=== PATIENT | male | born 1945 | race Caucasian/White ===

== ENCOUNTER → 2016-05-23 | Outpatient (CLI) | payer MEDICARE, MEDICAID | LOC: MW.CHIM 08:00 | PROVIDERS: ATTEND Internal Medicine | DX: Z01.818 Encounter for other preprocedural examination (principal); M72.0 Palmar fascial fibromatosis [Dupuytren]; I10 Essential (primary) hypertension; J43.9 Emphysema, unspecified | CPT/HCPCS: 99204 ==

== ENCOUNTER → 2016-05-30 | Outpatient (CLI) | payer MEDICARE, MEDICAID ==
--- NOTE | 2016-05-30 09:35 | PCM.PRNOTE ---
- Free Text/Narrative Note: Lexiscan Indication pre-op evaluation Patient was supervised today during infusion portion of the stress test. The patient received Regadenoson 0.4 mg IV and nuclear agent using standard protocol. Sestamibi Tm99 25 Mci was gievn afterwards Baseline blood pressure is 130/87 with a heart rate 83 EKG sinus rhythm without ST abnormalities Vital signs at injection: Peak blood pressure 112/65 with a heart rate of 91 Vital signs at 4 minutes post injection: Peak blood pressure 103/76 with a heart rate of 79 EKG sinus rhythm without further ST changes Patient complains of hot flashes spontaneously resolved Adverse effects from Sara scan none Test done due to end of protocol Impression 1. electrocardiographically nondiagnostic for ischemia due to chemical protocol 2. nuclear imaging pending
--- NOTE | 2016-05-30 12:38 | NM ---
EXAMINATION: Nuclear medicine myocardial perfusion study HISTORY: Preprocedural examination. PROCEDURE: Following intravenous administration of 0.4 mg of Lexiscan and 27.5 mCi of technetium 99m sestamib i, stress and rest SPECT images including gating imaging was performed. FINDINGS: Stress and rest myocardial SPECT images demonstrates mild to moderately decreased perfusion along th e inferior wall of moderate size. There is likely a degree of diaphragmatic attenuation. Review of gated images demonstrates normal wall motion, contractility and wall thickening. The left ventricular ejection fraction is 74 %. The left ventricular chamber size is normal. IMPRESSION: 1. Decreased uptake along the inferior wall, correlate with rest imaging. 2. Normal ventricular chamber size and function with ejection fraction of 74 %.
--- NOTE | 2016-06-05 19:42 | ECHO ---
The echocardiogram report can be seen in this patient's EMR in the Reports section. MINDI
== END ==
LOC: MW.NM 07:19
PROVIDERS: ATTEND Internal Medicine
DX: Z01.818 Encounter for other preprocedural examination (principal); J43.9 Emphysema, unspecified; M72.0 Palmar fascial fibromatosis [Dupuytren]; I10 Essential (primary) hypertension; Z87.891 Personal history of nicotine dependence; Z01.810 Encounter for preprocedural cardiovascular examination
CPT/HCPCS: 78451; 93017; 93306; 99204; A9500; J2785

== ENCOUNTER → 2016-06-01 | Outpatient (CLI) | payer MEDICARE, MEDICAID ==
--- NOTE | 2016-06-07 18:19 | NM ---
REPORT ADDENDUM Addendum: Additional images were obtained at rest following the administration of 27.5 mCi of technetium 99m labeled sestamibi. Findings/impression: The defect along the inferior wall appears predominantly fixed. There is likely a degree of diaphragmatic attenuation noted. The ejection fraction appears unchanged at 75%. Wall motion also is similar. No evidence of myocardial ischemia. Addendum Dictated by: Brien Holden MD <Electronically signed by Brien Holden MD in [facility]> 06/01/16 1124 , 1123 , 3 EXAMINATION: Nuclear medicine myocardial perfusion study HISTORY: Preprocedural examination. PROCEDURE: Following intravenous administration of 0.4 mg of Lexiscan and 27.5 mCi of technetium 99m sestamibi, stress and rest SPECT images including gating imaging was performed. FINDINGS: Stress and rest myocardial SPECT images demonstrates mild to moderately decreased perfusion along the inferior wall of moderate size. There is likely a degree of diaphragmatic attenuation. Review of gated images demonstrates normal wall motion, contractility and wall thickening. The left ventricular ejection fraction is 74 %. The left ventricular chamber size is normal. IMPRESSION: 1. Decreased uptake along the inferior wall, correlate with rest imaging. 2. Normal ventricular chamber size and function with ejection fraction of 74 %. Dictated by: Brien Holden MD <Electronically signed by Brien Holden MD in [facility]> 05/30/16 at 1236 , 1235 , 1235 Doc Number: [id number] Copies To: Jim Guillen MD; PCP,None~ MTDD
== END | disposition home or self-care (01) ==
LOC: MW.NM 08:04
PROVIDERS: ATTEND Internal Medicine
DX: I10 Essential (primary) hypertension (principal)
CPT/HCPCS: 78451; A9500

== ENCOUNTER → 2016-07-09 | Outpatient (CLI) | payer MEDICARE, MEDICAID | END | disposition home or self-care (01) | LOC: MW.CHUR 10:38 | PROVIDERS: ATTEND Urology | DX: R35.0 Frequency of micturition (principal); R97.20 Elevated prostate specific antigen [PSA]; N43.3 Hydrocele, unspecified | CPT/HCPCS: 36415; 81001; 84153; G0463 ==

== ENCOUNTER 2016-08-07 12:12 | Day surgery (SDC) | payer MEDICARE, MEDICAID ==
[~2016-08-07 12:12] MED LIST: Lactated Ringers 1,000 ML IV SCH; ceFAZolin 1 GM in Premix Bag 1 BAG IV ONE
[2016-08-07] MEDS ORDERED: Famotidine 20 MG/2 ML SDV IVPUSH ONE (13:04)
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
[2016-08-07] MEDS ORDERED: Lidocaine 2% 5 ML SDV ONE (14:03)
[2016-08-07] MEDS ORDERED: Midazolam 1 MG/ML 2 ML SDV ONE (14:03)
[2016-08-07] MEDS ORDERED: Propofol 200 MG/20 ML SDV ONE ×2 (14:03→14:04)
[2016-08-07] MEDS ORDERED: fentaNYL 250 MCG/5 ML SDV ONE (14:03)
[2016-08-07] MEDS ORDERED: Ondansetron 4 MG/2 ML SDV ONE (14:04)
[2016-08-07] MEDS ORDERED: Bupivacaine 0.5% 10 ML SDV ONE (14:40)
[2016-08-07] MEDS ORDERED: Lidocaine 1% 50 ML MDV ONE (14:40)
[2016-08-07] MEDS ORDERED: Ketorolac 30 MG/ML SDV ONE (16:01)
[2016-08-07] MEDS ORDERED: Neostigmine Methylsulfate 1 MG/ML 5 ML Syringe ONE (16:01)
[2016-08-07] MEDS ORDERED: fentaNYL 100 MCG/2 ML SDV IVPUSH PRN (16:27)
--- NOTE | 2016-08-07 16:42 | PCM.POSTAN ---
POST ANESTHESIA ASSESSMENT - MENTAL STATUS Mental Status: alert, oriented - VITAL SIGNS Pulse Rate: 84 SaO2: 94 (room air) Resp Rate: 18 Blood Pressure: 118/65 - RESPIRATORY Respiratory Status: respiratory rate WNL, airway patent, O2 saturation stable - CARDIOVASCULAR CV Status: pulse rate WNL, blood pressure stable - GASTROINTESTINAL GI Status: no symptoms - PAIN Pain Score: 0 - POST OP HYDRATION Hydration Status: adequate & stable
--- NOTE | 2016-08-07 16:46 | PCM48HPAN ---
Post Anesthesia Note - EVALUATION WITHIN 48HRS OF ANESTHETIC Vital Signs in Normal Range: Yes Patient Participated in Evaluation: Yes Respiratory Function Stable: Yes Airway Patent: Yes Cardiovascular Function Stable: Yes Hydration Status Stable: Yes Pain Control Satisfactory: Yes Nausea and Vomiting Control Satisfactory: Yes Mental Status Recovered: Yes
[2016-08-07 17:38] VITALS: BP 128/70
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
== END 2016-08-07 17:35 | disposition home or self-care (01) ==
LOC: MW.SDS 12:12
PROVIDERS: ATTEND Urology
DX: N43.3 Hydrocele, unspecified (principal); I10 Essential (primary) hypertension; J44.9 Chronic obstructive pulmonary disease, unspecified; K21.9 Gastro-esophageal reflux disease without esophagitis; N40.1 Benign prostatic hyperplasia with lower urinary tract symptoms; N39.498 Other specified urinary incontinence; E03.9 Hypothyroidism, unspecified; E66.9 Obesity, unspecified; Z87.891 Personal history of nicotine dependence; Z90.49 Acquired absence of other specified parts of digestive tract; Z96.659 Presence of unspecified artificial knee joint; Z98.890 Other specified postprocedural states; Z79.82 Long term (current) use of aspirin; Z79.899 Other long term (current) drug therapy
CPT/HCPCS: 55040; J0690; J1885; J2250; J2405; J3010; J7120; 00920; 88304; J2704

== ENCOUNTER 2016-11-21 02:09 | Emergency (ER) | payer MEDICARE, MEDICAID ==
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
[2016-11-21 04:35] VITALS: BP 129/75
--- NOTE | 2016-11-21 16:09 | CR ---
EXAM DATE: 11/21/16 PATIENT'S AGE: 71 Patient: LEONIDAS HENDERSON Facility: [place], [place] Site . Site : 1945 Study: XRay Knee Right [id number]/6/2017 3:23:04 AM Ordering Physician: Doctor Eaton Final Report: Indication: Fall, right knee pain Technique: Three views right knee Comparison: February 20, 2012 Findings: Status post right knee arthroplasty. No hardware complication identified. No acute fracture or subluxation. No knee effusion. Soft tissues are intact. Impression: No acute abnormality or hardware complication. Dictated by Ayde Shen MD @ Nov 21 2016 3:23AM (Electronic Signature) Report Signed by Proxy. MINDI
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
--- NOTE | 2016-11-21 16:11 | CR ---
EXAM DATE: 11/21/16 PATIENT'S AGE: 71 Patient: LEONIDAS HENDERSON Facility: [place], [place] Site . Site : 1945 Study: XRay Pelvis Bilateral HIPS [id number]/6/2017 3:23:49 AM Ordering Physician: Doctor Eaton Final Report: Indication: Fall, weakness Technique: Frontal view pelvis, two view bilateral hips Comparison: None Findings/impression: Irregularity of the left superior and inferior pubic rami may be secondary to rotation however if there is any left-sided pelvic pain, a pelvic CT is recommended for further evaluation. There are mild degenerative changes in the hip joints bilaterally. Remainder the exam is unremarkable. Dictated by Ayde Shen MD @ Nov 21 2016 3:37AM (Electronic Signature) Report Signed by Proxy. MINDI
== END 2016-11-21 04:10 | disposition home or self-care (01) ==
LOC: MW.ED 02:09
DX: S89.91XA Unspecified injury of right lower leg, initial encounter (principal); I10 Essential (primary) hypertension; J44.9 Chronic obstructive pulmonary disease, unspecified; K21.9 Gastro-esophageal reflux disease without esophagitis; M19.90 Unspecified osteoarthritis, unspecified site; E03.9 Hypothyroidism, unspecified; E66.9 Obesity, unspecified; Z90.49 Acquired absence of other specified parts of digestive tract; Z96.659 Presence of unspecified artificial knee joint; Z87.891 Personal history of nicotine dependence; Z68.35 Body mass index [BMI] 35.0-35.9, adult; Z79.82 Long term (current) use of aspirin; Z79.899 Other long term (current) drug therapy; W19.XXXA Unspecified fall, initial encounter
CPT/HCPCS: 36415; 71010; 71010-26; 73521; 73521-26; 73562-26-RT; 73562-RT; 80053; 82553; 84484; 85025; 93005; 99282; 99285-25

== ENCOUNTER 2018-09-05 16:09 | Observation (INO) | payer MEDICARE, MEDICAID ==
[2018-09-05 16:57] LABS: CHLORIDE,CL 104 mmol/L (98-107); SODIUM,NA 135 mmol/L (136-148)
--- NOTE | 2018-09-05 17:32 | CR ---
INDICATION: Generalized weakness TECHNIQUE: Chest 1 views COMPARISON: 11/21/2016 FINDINGS: Cardiovascular and mediastinum: Heart size and vasculature are normal in caliber and appearance. Lungs and pleural spaces: Lungs are clear except for a stable right lower lobe granuloma. No sign of infiltrate or mass. No sign of pleural effusion. No pneumothorax. Bones and soft tissues: No significant findings. IMPRESSION: No acute findings and no significant changes from the prior exam. Dictated by Patrice Nieves MD @ Sep 05 2018 5:29PM Signed by Dr. Patrice Nieves @ Sep 05 2018 5:30PM
--- NOTE | 2018-09-05 18:45 | CT ---
INDICATION: Altered mental status. COMPARISON: None. TECHNIQUE: Noncontrast images foramen magnum to vertex. FINDINGS: Low-attenuation edema or gliosis in the deep white of the superior anterior left frontal lobe. Large lacunar infarct left insula and into the external capsule. Small lacunar infarct left thalamus. No hemorrhage. Mild global atrophy with prominence of sulci and lateral ventricles. No extra-axial fluid. No mass, mass effect or midline shift. The posterior fossa appears normal. Presumed mucous retention cyst left maxillary sinus. Calvarium intact. IMPRESSION: 1. Left basal gangliar lacunar infarcts. 2. Nonspecific low-attenuation edema or gliosis left frontal lobe. No definite mass. Findings may be root related to infarct or ischemia. If there is ongoing concern for acute neurologic event, further characterization with MRI recommended. 3. Mild global atrophy. Please note that all CT scans at this facility use dose modulation, iterative reconstruction, and/or weight-based dosing when appropriate to reduce radiation dose to as low as reasonably achievable. Dictated by Amrit Gomez MD @ Sep 05 2018 6:42PM Signed by Dr. Amrit Gomez @ Sep 05 2018 6:45PM
[2018-09-05] MEDS ORDERED: Aspirin 81 MG Tab.Chew PO ONE (19:32)
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
[2018-09-05] MEDS ORDERED: oxyCODONE 5 MG Tab PO PRN (21:05)
[2018-09-05] MEDS ORDERED: Acetaminophen 325 MG Tab PO PRN (21:05)
[2018-09-05] MEDS: Sodium Chloride 0.9% 1,000 ML IV SCH (21:49)
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
[2018-09-06] MEDS ORDERED: Iopamidol 755 MG/ML 500 ML Multipack Bottle IVPUSH STA (09:43)
[2018-09-06] MEDS: Heparin Sodium 5,000 Units/ML Vial SUBCUT SCH ×2 (09:46→16:35)
--- NOTE | 2018-09-06 10:21 | CT ---
CT ANGIOGRAM HEAD AND NECK DATE: 09/06/2018 CLINICAL HISTORY: Patient with transient episode of confusion. TECHNIQUE: Standard helical CT image acquisition through the head and neck was performed after intravenous contrast bolus enhancement. Multiplanar reconstructed images were performed and interpreted. COMPARISON: CT 09/05/2018. FINDINGS: The origins of the great vessels from the aortic arch are patent. The origin of the right vertebral artery is patent. The origin of the left vertebral artery is patent. The common carotid arteries are patent There is no stenosis at the origin of the right internal carotid artery. There is no stenosis at the origin of the left internal carotid artery. The rest of the cervical segments of the internal carotid arteries are patent up to their intracranial segments. The intracranial segments of the internal carotid arteries are patent. The right vertebral artery is dominant. The cervical segments of the vertebral arteries are patent. The intracranial segments of the vertebral arteries are patent. The middle cerebral arteries are normal without aneurysm or proximal occlusion identified. The anterior cerebral arteries are normal without aneurysm or proximal occlusion identified. The anterior communicating artery is well visualized and appears normal. The basilar artery is normal without aneurysm or occlusion. The posterior cerebral arteries are normal without aneurysm or proximal occlusion. There is normal opacification of major intracranial venous structures. The visualized lung apices are unremarkable The thyroid gland is unremarkable. The soft tissues of the neck are unremarkable. There are degenerative changes in the cervical spine. IMPRESSION: Normal CT angiogram of the head and neck. Please note that all CT scans at this facility use dose modulation, iterative reconstruction, and/or weight-based dosing when appropriate to reduce radiation dose to as low as reasonably achievable. Dictated by: Rich Santillan MD @ 09/06/2018 13:43:30 (Electronically Signed)
[2018-09-06] MEDS ORDERED: Lisinopril 10 MG Tab PO SCH (10:45)
[2018-09-06] MEDS ORDERED: Tolterodine 2 MG Cap.ER PO SCH (10:45)
[2018-09-06] MEDS ORDERED: Omeprazole 20 MG Cap.CR PO SCH (10:45)
[2018-09-06] MEDS ORDERED: Metoprolol Succinate 25 MG Tab.ER PO SCH (10:45)
[2018-09-06] MEDS ORDERED: UMECLIDINIUM BRM INH SCH (10:45)
[2018-09-06] MEDS ORDERED: VILANTEROL TR INH SCH (10:45)
[2018-09-06] MEDS ORDERED: Hydrochlorothiazide 25 MG Tab PO SCH (10:45)
[2018-09-06] MEDS: Sodium Chloride 0.9% 1,000 ML IV SCH ×2 (11:10→19:22)
[2018-09-06 21:51] VITALS: BP 126/58
[2018-09-07] MEDS ORDERED: Levothyroxine 75 MCG Tab PO SCH (07:30)
[2018-09-07] MEDS ORDERED: Omeprazole 20 MG Cap.CR PO SCH (07:30)
[2018-09-07] MEDS ORDERED: Dutasteride 0.5 MG Cap PO SCH (09:00)
[2018-09-07] MEDS ORDERED: Aspirin 81 MG Tab.EC PO SCH (09:00)
--- NOTE | 2018-09-08 09:55 | PCM.DCSUM1 ---
Discharge Summary - Hospital Course HPI Initial Comments: The patient was admitted secondary to altered mental status. Diagnosis: Stroke: No - Discharge Data Discharge Date: 09/06/18 Discharge Disposition: Against Medical Advice 07 Condition: Fair - Discharge Diagnosis/Problem(s) (1) Altered mental status SNOMED Code(s): 518401689 ICD Code: R41.82 - ALTERED MENTAL STATUS, UNSPECIFIED Status: Resolved Qualifiers: Altered mental status type: disorientation Qualified Code(s): R41.0 - Disorientation, unspecified (2) Anemia in stage 3 chronic kidney disease SNOMED Code(s): 204127763 ICD Code: N18.3 - CHRONIC KIDNEY DISEASE, STAGE 3 (MODERATE); D63.1 - ANEMIA IN CHRONIC KIDNEY DISEASE Status: Chronic Priority: High (3) Chronic kidney disease, stage III (moderate) SNOMED Code(s): 810383231 ICD Code: N18.3 - CHRONIC KIDNEY DISEASE, STAGE 3 (MODERATE) Status: Chronic Priority: High (4) Dupuytren's contracture of both hands SNOMED Code(s): 982757488 ICD Code: M72.0 - [place] FASCIAL FIBROMATOSIS [DUPUYTREN] Status: Chronic Priority: High (5) Hypertension SNOMED Code(s): 30190712 ICD Code: I10 - ESSENTIAL (PRIMARY) HYPERTENSION Status: Chronic Priority : High Qualifiers: Hypertension type: essential hypertension Qualified Code(s): I10 - Essential (primary) hypertension - Patient Summary/Data Consults: Consultations 09/06/18 07:00 OT Evaluation and Treatment [CONS] Routine PT Evaluation and Treatment [CONS] Routine Hospital Course: The patient is a 73-year-old gentleman who had been admitted secondary to altered mental status. The patient had a CT angiogram of his head and neck and he was fluid resuscitated to help prevent contrast-induced nephropathy and the patient was held 1 day to check his renal function. His discharge creatinine was 1.8 mg/dL. The patient signed out AGAINST MEDICAL ADVICE before being evaluated. - Discharge Plan *PRESCRIPTION DRUG MONITORING PROGRAM REVIEWED*: No *COPY OF PRESCRIPTION DRUG MONITORING REPORT IN PATIENT JENNIFER: No Home Medications: Home Meds Aspirin [[place] Aspirin EC] 81 mg PO DAILY 08/02/16 [History] Cyanocobalamin (Vitamin B-12) [B-12] 1,000 mcg PO DAILY 08/02/16 [History] Dutasteride [Avodart] 0.5 mg PO DAILY 08/02/16 [History] Hydrochlorothiazide 12.5 mg PO DAILY 08/02/16 [History] Levothyroxine Sodium [Synthroid] 75 mcg PO DAILY 08/02/16 [History] Lisinopril 20 mg PO DAILY 08/02/16 [History] Metoprolol Succinate 25 mg PO DAILY 08/02/16 [History] Omeprazole 20 mg PO DAILY 08/02/16 [History] Tolterodine Tartrate [Tolterodine Tartrate ER] 4 mg PO DAILY 11/21/16 [History] Umeclidinium Brm/Vilanterol Tr [Anoro Ellipta 62.5-25 MCG] 1 puff INH DAILY [History] Forms: ED Department Discharge Referrals: PCP,None [Primary Care Provider] - - Discharge Summary/Plan Comment DC Time >30 min.: No - Patient Data Vitals - Most Recent: Last Vital Signs Temp 36 C 09/06/18 19:25 Pulse 82 09/06/18 19:25 Resp 18 09/06/18 19:25 BP 126/58 L 09/06/18 19:25 Pulse Ox 95 09/06/18 19:25 Weight - Most Recent: 113.035 kg Med Orders - Current: Current Medications Discontinued Medications Acetaminophen (Tylenol) 650 mg PO Q6H PRN PRN Reason: Pain (mild 1-3) Aspirin (Aspirin) 324 mg PO ONETIME ONE Stop: 09/05/18 19:33 Last Admin: 09/05/18 20:04 Dose: 324 mg Aspirin (Halfprin) 81 mg PO DAILY [facility] Dutasteride (Avodart) 0.5 mg PO DAILY [facility] Heparin Sodium (Porcine) (Heparin Sodium) 5,000 units SUBCUT Q8H [facility] Last Admin: 09/06/18 16:35 Dose: 5,000 units Hydrochlorothiazide (Hydrochlorothiazide) 12.5 mg PO DAILY [facility] Last Admin: 09/06/18 11:39 Dose: 12.5 mg Sodium Chloride (Normal Saline) 1,000 mls @ 125 mls/hr IV ASDIRECTED [facility] Last Admin: 09/06/18 19:22 Dose: 125 mls/hr Iopamidol (Isovue Multipack-370 (76%)) 100 ml IVPUSH ONETIME STA Stop: 09/06/18 09:44 Last Admin: 09/06/18 09:43 Dose: 100 ml Levothyroxine Sodium (Levothyroxine) 75 mcg PO ACBREAKFAST [facility] Lisinopril (Prinivil) 20 mg PO DAILY [facility] Last Admin: 09/06/18 11:39 Dose: 20 mg Metoprolol Succinate (Toprol Xl) 25 mg PO DAILY [facility] Last Admin: 09/06/18 11:39 Dose: 25 mg Omeprazole (Omeprazole) 20 mg PO DAILY [facility] Last Admin: 09/06/18 11:45 Dose: Not Given Omeprazole (Omeprazole) 20 mg PO ACBREAKFAST [facility] Oxycodone HCl (Oxycodone) 5 mg PO Q4H PRN PRN Reason: Pain (moderate 4-6) Umeclidinium Brm/Vilanterol Tr 62.5/25 Mcg 1 each INH DAILY [facility] Last Admin: 09/06/18 12:14 Dose: 1 each Tolterodine Tartrate (Detrol La 24 Hr) 4 mg PO DAILY [facility] Last Admin: 09/06/18 11:39 Dose: 4 mg
== END 2018-09-06 21:30 | disposition left against medical advice (07) ==
LOC: MW.ED 16:09 → MW.MS 20:10
PROVIDERS: ADMIT Internal Medicine; ATTEND Internal Medicine
DX: R41.82 Altered mental status, unspecified (principal); I12.9 Hypertensive chronic kidney disease with stage 1 through stage 4 chronic kidney disease, or unspecified chronic kidney disease; N18.3 Chronic kidney disease, stage 3 (moderate); D63.1 Anemia in chronic kidney disease; M72.0 Palmar fascial fibromatosis [Dupuytren]; J44.9 Chronic obstructive pulmonary disease, unspecified; K21.9 Gastro-esophageal reflux disease without esophagitis; N40.1 Benign prostatic hyperplasia with lower urinary tract symptoms; N39.498 Other specified urinary incontinence; M19.90 Unspecified osteoarthritis, unspecified site; E03.9 Hypothyroidism, unspecified; E66.9 Obesity, unspecified; I63.81 Other cerebral infarction due to occlusion or stenosis of small artery; G31.9 Degenerative disease of nervous system, unspecified; Z79.82 Long term (current) use of aspirin; Z79.899 Other long term (current) drug therapy; Z87.891 Personal history of nicotine dependence; Z68.32 Body mass index [BMI] 32.0-32.9, adult
CPT/HCPCS: 36415; 70450; 70496; 70498; 71045; 80048; 80053; 80305; 81003; 83690; 83735; 84484; 85025; 93005; 97161; 99285; A9270; G0480; J1644; J7040; Q9967; 99283

== ENCOUNTER 2018-10-02 16:08 | Emergency (ER) | payer MEDICARE, MEDICAID ==
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
--- NOTE | 2018-10-02 16:43 | CT ---
INDICATION: Neck pain from syncope and fall TECHNIQUE: CT cervical spine without i.v. contrast. Coronal and sagittal reformats were obtained. COMPARISON: CXR today FINDINGS: Alignment: Mild kyphosis of the cervical spine is noted. Bone: No acute fractures or aggressive bone lesions are identified. There is a corticated ossicle along the tip of the C7 spinous process which may be due to remote injury or nonunited secondary ossification center. Disc: Moderate degenerative disc narrowing is present from C3-4 through C6-7. Scattered facet osteoarthritis is noted bilaterally. Soft tissue: The prevertebral soft tissues are unremarkable in appearance. Lucency in the right apex with no lung markings are present. This may be due to bullous formation when compared to recent chest radiograph. IMPRESSION: 1. No acute osseous injuries are identified. Dictated by Raffi Stanley MD @ 10/02/2018 4:42:54 PM Please note that all CT scans at this facility use dose modulation, iterative reconstruction, and/or weight-based dosing when appropriate to reduce radiation dose to as low as reasonably achievable. Dictated by: Raffi Stanley MD @ 10/02/2018 16:42:59 (Electronically Signed)
[2018-10-02] MEDS ORDERED: Sodium Chloride 0.9% 1,000 ML IV SCH (16:45)
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
--- NOTE | 2018-10-02 17:09 | CR ---
HISTORY: Pain after fall last night. COMPARISON: None available. FINDINGS: The right elbow is examined with AP, lateral, and oblique views. There is no sign of fracture, dislocation, or joint effusion. The soft tissues are normal in appearance without sign of radio-opaque foreign body. No significant degenerative disease is seen. IMPRESSION: Normal right elbow examination. Dictated by Rajesh Nascimento MD @ Oct 02 2018 5:06PM Signed by Dr. Rajesh Nascimento @ Oct 02 2018 5:07PM
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
[2018-10-02 17:20] LABS: CHLORIDE,CL 105 mmol/L (98-107); SODIUM,NA 138 mmol/L (136-148)
[2018-10-02 18:15] VITALS: BP 98/69
== END 2018-10-02 18:05 | disposition home or self-care (01) ==
LOC: MW.ED 16:08
DX: R55 Syncope and collapse (principal); S50.01XA Contusion of right elbow, initial encounter; S20.211A Contusion of right front wall of thorax, initial encounter; Z86.73 Personal history of transient ischemic attack (TIA), and cerebral infarction without residual deficits; I10 Essential (primary) hypertension; J44.9 Chronic obstructive pulmonary disease, unspecified; E03.9 Hypothyroidism, unspecified; Z79.82 Long term (current) use of aspirin; Z79.899 Other long term (current) drug therapy; W19.XXXA Unspecified fall, initial encounter
CPT/HCPCS: 36415; 70450; 71101; 72125; 73080; 80053; 84484; 85025; 85610; 93005; 96360; 99284; G0480; J7040

== ENCOUNTER 2019-01-14 16:16 | Observation (INO) | payer MEDICARE, MEDICAID ==
[2019-01-14] MEDS ORDERED: Sodium Chloride 0.9% 10 ML Syringe FLUSH PRN (16:23)
[2019-01-14] MEDS ORDERED: Sodium Chloride 0.9% 2.5 ML Syringe FLUSH PRN (16:23)
[2019-01-14] MEDS ORDERED: Sodium Chloride 0.9% 250 ML IV SCH (16:30)
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
--- NOTE | 2019-01-14 18:05 | CR ---
Indication: Pain. Shortness breath. Technique: A single AP portable view of the chest was obtained. Comparison: None Findings: Heart is borderline in size. Small left pleural effusion is identified. The right lung is clear. No pneumothorax is identified. Impression: Small left pleural effusion Dictated by Jayde Cao MD @ Jan 14 2019 6:02PM Signed by Dr. Jayde Cao @ Jan 14 2019 6:03PM
--- NOTE | 2019-01-14 18:11 | CT ---
INDICATION: Pain, weakness, dizziness COMPARISON: 10/02/2018. TECHNIQUE: CT examination of the head was performed with 3 mm thick axial sections without intravenous contrast. Images were obtained from the vertex of the skull through the skull base, and I examined the images with the brain and bone windows. Please note that all CT scans at this facility use dose modulation, iterative reconstruction, and/or weight-based dosing when appropriate to reduce radiation dose to as low as reasonably achievable. FINDINGS: : The brain is normal in appearance for the patient`s age on today`s study, with no sign of mass lesion, mass effect, hemorrhage, or edema. 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 Again seen is the old lacunar infarct in the left thalamus. Again seen are several small lacunar infarcts in the external capsules, right greater than left. There is no change in mild dilatation of the ventricles and sulci representing age-appropriate atrophy. There is no change in mild periventricular and subcortical white matter hypodensity from age appropriate small vessel ischemia. The visualized portions of the orbits are normal in appearance. The visualized portions of the paranasal sinuses and mastoids are clear. The osseous structures are normal in their appearance with no sign of abnormality in the skull base or calvarium. IMPRESSION: No sign of acute injury to the brain. Stable mild, age-appropriate atrophy and mild small vessel ischemic changes. 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 Please note that all CT scans at this facility use dose modulation, iterative reconstruction, and/or weight-based dosing when appropriate to reduce radiation dose to as low as reasonably achievable. Dictated by Rajesh Nascimento MD @ Jan 14 2019 6:04PM Signed by Dr. Rajesh Nascimento @ Jan 14 2019 6:10PM
[2019-01-14 18:15] LABS: BLOOD UREA NITROGEN,BUN 30 mg/dL (7.0-18.0); CARBON DIOXIDE,CO2 25.5 mmol/L (21.0-32.0); CHLORIDE,CL 104 mmol/L (98-107); GLUCOSE RANDOM 107 mg/dL (74-106); POTASSIUM,K 4.1 mmol/L (3.5-5.1); SODIUM,NA 139 mmol/L (136-148)
[2019-01-14] MEDS ORDERED: Morphine 10 MG/ML Syringe IVPUSH PRN (18:58)
[2019-01-14] MEDS ORDERED: Acetaminophen 325 MG Tab PO PRN (18:58)
[2019-01-14] MEDS ORDERED: Ondansetron 4 MG Tab.DIS PO PRN (18:58)
[2019-01-14] MEDS ORDERED: Ondansetron 4 MG/2 ML SDV IVPUSH PRN (18:58)
[2019-01-14] MEDS ORDERED: Acetaminophen/HYDROcodone 325-5 MG Tab PO PRN (18:58)
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
[2019-01-14] MEDS ORDERED: Sodium Chloride 0.9% 1,000 ML IV ONE (19:55)
[2019-01-14] MEDS: Heparin Sodium 5,000 Units/ML Vial SUBCUT SCH (20:09)
[2019-01-15] MEDS: Heparin Sodium 5,000 Units/ML Vial SUBCUT SCH ×3 (03:32→18:15)
[2019-01-15 06:33] LABS: HEMOGLOBIN A1C 5.8 % (4.5-6.2)
[2019-01-15 06:47] LABS: BLOOD UREA NITROGEN,BUN 27 mg/dL (7.0-18.0); CARBON DIOXIDE,CO2 25.8 mmol/L (21.0-32.0); CHLORIDE,CL 108 mmol/L (98-107); GLUCOSE RANDOM 87 mg/dL (74-106); POTASSIUM,K 3.6 mmol/L (3.5-5.1); SODIUM,NA 145 mmol/L (136-148)
[2019-01-15] MEDS: Levothyroxine 75 MCG Tab PO SCH (07:11)
[2019-01-15] MEDS ORDERED: Morphine 2 MG/ML Syringe IVPUSH PRN (07:32)
[2019-01-15] MEDS ORDERED: Omeprazole 20 MG Cap.CR PO SCH (09:00)
[2019-01-15] MEDS: Metoprolol Succinate 25 MG Tab.ER PO SCH (09:47)
[2019-01-15] MEDS: Famotidine 20 MG Tab PO SCH ×2 (09:48→20:10)
[2019-01-15] MEDS: Aspirin 81 MG Tab.EC PO SCH (09:48)
--- NOTE | 2019-01-15 11:19 | PCM.PN ---
<Juliann Pemberton M - Last Filed: 01/15/19 14:31> - General Info Date of Service: 01/15/19 Admission Dx/Problem (Free Text): Admission Diagnosis/Problem Admission Diagnosis/Problem Weakness Functional Status: Reports: Pain Controlled, Tolerating Diet, Ambulating, Urinating - Review of Systems General: Reports: No Symptoms. Denies: Fever, Weakness, Fatigue HEENT: Reports: No Symptoms Pulmonary: Reports: No Symptoms Cardiovascular: Reports: No Symptoms. Denies: Chest Pain, Dyspnea on Exertion Gastrointestinal: Reports: No Symptoms. Denies: Abdominal Pain, Nausea, Vomiting Genitourinary: Reports: No Symptoms. Denies: Dysuria, Frequency Musculoskeletal: Reports: No Symptoms. Denies: Back Pain Skin: Reports: No Symptoms Neurological: Reports: No Symptoms Psychiatric: Reports: No Symptoms - Patient Data Vitals - Most Recent: Last Vital Signs Temp 96.5 F 01/15/19 07:15 Pulse 72 01/15/19 09:47 Resp 16 01/15/19 07:15 BP 131/73 01/15/19 09:47 Pulse Ox 98 01/15/19 09:30 Orthostatic Blood Pressure [ 131/73 Supine] Weight - Most Recent: 111.221 kg I&O - Last 24 Hours: Intake & Output 01/14/19 01/15/19 01/15/19 22:59 06:59 14:59 Intake Total 1306 Balance 1306 Lab Results Last 24 Hours: Laboratory Results - last 24 hr 01/14/19 01/14/19 01/14/19 Range/Units 16:32 16:40 16:40 WBC 5.21 (4.0-11.0) K/uL RBC 4.03 L (4.50-5.90) M/uL Hgb 12.3 L (13.0-17.0) g/dL Hct 36.0 L (38.0-50.0) % MCV 89.3 (80.0-98.0) fL MCH 30.5 (27.0-32.0) pg MCHC 34.2 (31.0-37.0) g/dL RDW Std Deviation 44.5 (28.0-62.0) fl RDW Coeff of Konrad 14 (11.0-15.0) % Plt Count 188 (150-400) K/uL MPV 10.10 (7.40-12.00) fL Neut % (Auto) 65.0 (48.0-80.0) % Lymph % (Auto) 19.8 (16.0-40.0) % [place] % (Auto) 12.1 (0.0-15.0) % Eos % (Auto) 2.9 (0.0-7.0) % Baso % (Auto) 0.2 (0.0-1.5) % Neut # (Auto) 3.4 (1.4-5.7) K/uL Lymph # (Auto) 1.0 (0.6-2.4) K/uL [place] # (Auto) 0.6 (0.0-0.8) K/uL Eos # (Auto) 0.2 (0.0-0.7) K/uL Baso # (Auto) 0.0 (0.0-0.1) K/uL Nucleated RBC % 0.0 /100WBC Nucleated RBCs # 0 K/uL INR 1.02 ABG pH 7.458 H (7.35-7.45) ABG pCO2 32 L (35-45) mmHG ABG pO2 78 (75-100) mmHG ABG HCO3 23 (22-26) mEq/L ABG Total CO2 20.6 ABG Base Excess -0.5 (-2.0-2.0) Sodium (136-148) mmol/L Potassium (3.5-5.1) mmol/L Chloride (98-107) mmol/L Carbon Dioxide (21.0-32.0) mmol/L BUN (7.0-18.0) mg/dL Creatinine (0.8-1.3) mg/dL Est Cr Clr Drug Dosing mL/min Estimated GFR (MDRD) ml/min Glucose (74-106) mg/dL Hemoglobin A1c (4.5-6.2) % Calcium (8.5-10.1) mg/dL Magnesium (1.8-2.4) mg/dL Total Bilirubin (0.2-1.0) mg/dL AST (15-37) IU/L ALT (14-63) IU/L Alkaline Phosphatase (46-116) U/L Ammonia (19-54) ug/dL Troponin I (0.000-0.056) ng/mL B-Natriuretic Peptide (<100) PG/ML Total Protein (6.4-8.2) g/dL Albumin (3.4-5.0) g/dL Globulin (2.6-4.0) g/dL Albumin/Globulin Ratio (0.9-1.6) Triglycerides (0-200) mg/dL Cholesterol (50-200) mg/dL LDL Cholesterol, Calc (60-180) mg/dL VLDL Cholesterol (5-55) mg/dL HDL Cholesterol (40-60) mg/dL Cholesterol/HDL Ratio (3.3-6.0) Prostate Specific Ag (0.05-4.00) ng/mL Vitamin B12 (193-986) pg/mL TSH 3rd Generation (0.36-3.74) uIU/mL Prolactin ng/mL Urine Color Urine Appearance Urine pH (5.0-8.0) Ur Specific [place] (1.001-1.035) Urine Protein (NEGATIVE) mg/dL Urine Glucose (UA) (NEGATIVE) mg/dL Urine Ketones (NEGATIVE) mg/dL Urine Occult Blood (NEGATIVE) Urine Nitrite (NEGATIVE) Urine Bilirubin (NEGATIVE) Urine Urobilinogen (<2.0) EU/dL Ur Leukocyte Esterase (NEGATIVE) Urine RBC (0-2/HPF) Urine WBC (0-5/HPF) Ur Epithelial Cells (NONE-FEW) Urine Bacteria (NEGATIVE) Urine Mucus (NONE-MOD) Urine Opiates Screen (NEGATIVE) Ur Oxycodone Screen (NEGATIVE) Urine Methadone Screen (NEGATIVE) Ur Barbiturates Screen (NEGATIVE) Ur Phencyclidine Scrn (NEGATIVE) Ur Amphetamine Screen (NEGATIVE) U Methamphetamines Scrn (NEGATIVE) U Benzodiazepines Scrn (NEGATIVE) U Cocaine Metab Screen (NEGATIVE) U Marijuana (THC) Screen (NEGATIVE) 01/14/19 01/14/19 01/14/19 Range/Units 17:33 17:33 17:33 WBC (4.0-11.0) K/uL RBC (4.50-5.90) M/uL Hgb (13.0-17.0) g/dL Hct (38.0-50.0) % MCV (80.0-98.0) fL MCH (27.0-32.0) pg MCHC (31.0-37.0) g/dL RDW Std Deviation (28.0-62.0) fl RDW Coeff of [place] (11.0-15.0) % Plt Count (150-400) K/uL MPV (7.40-12.00) fL Neut % (Auto) (48.0-80.0) % Lymph % (Auto) (16.0-40.0) % [place] % (Auto) (0.0-15.0) % Eos % (Auto) (0.0-7.0) % Baso % (Auto) (0.0-1.5) % Neut # (Auto) (1.4-5.7) K/uL Lymph # (Auto) (0.6-2.4) K/uL [place] # (Auto) (0.0-0.8) K/uL Eos # (Auto) (0.0-0.7) K/uL Baso # (Auto) (0.0-0.1) K/uL Nucleated RBC % /100WBC Nucleated RBCs # K/uL INR ABG pH (7.35-7.45) ABG pCO2 (35-45) mmHG ABG pO2 (75-100) mmHG ABG HCO3 (22-26) mEq/L ABG Total CO2 ABG Base Excess (-2.0-2.0) Sodium 139 (136-148) mmol/L Potassium 4.1 (3.5-5.1) mmol/L Chloride 104 (98-107) mmol/L Carbon Dioxide 25.5 (21.0-32.0) mmol/L BUN 30 H (7.0-18.0) mg/dL Creatinine 1.4 H (0.8-1.3) mg/dL Est Cr Clr Drug Dosing 56.27 mL/min Estimated GFR (MDRD) 50.0 ml/min Glucose 107 H (74-106) mg/dL Hemoglobin A1c (4.5-6.2) % Calcium 9.7 (8.5-10.1) mg/dL Magnesium (1.8-2.4) mg/dL Total Bilirubin 0.4 (0.2-1.0) mg/dL AST 18 (15-37) IU/L ALT 13 L (14-63) IU/L Alkaline Phosphatase 58 (46-116) U/L Ammonia < 17 L (19-54) ug/dL Troponin I < 0.050 (0.000-0.056) ng/mL B-Natriuretic Peptide 97 (<100) PG/ML Total Protein 6.9 (6.4-8.2) g/dL Albumin 3.4 (3.4-5.0) g/dL Globulin 3.5 (2.6-4.0) g/dL Albumin/Globulin Ratio 1.0 (0.9-1.6) Triglycerides (0-200) mg/dL Cholesterol (50-200) mg/dL LDL Cholesterol, Calc (60-180) mg/dL VLDL Cholesterol (5-55) mg/dL HDL Cholesterol (40-60) mg/dL Cholesterol/HDL Ratio (3.3-6.0) Prostate Specific Ag (0.05-4.00) ng/mL Vitamin B12 (193-986) pg/mL TSH 3rd Generation (0.36-3.74) uIU/mL Prolactin 7.4 ng/mL Urine Color Urine Appearance Urine pH (5.0-8.0) Ur Specific [place] (1.001-1.035) Urine Protein (NEGATIVE) mg/dL Urine Glucose (UA) (NEGATIVE) mg/dL Urine Ketones (NEGATIVE) mg/dL Urine Occult Blood (NEGATIVE) Urine Nitrite (NEGATIVE) Urine Bilirubin (NEGATIVE) Urine Urobilinogen (<2.0) EU/dL Ur Leukocyte Esterase (NEGATIVE) Urine RBC (0-2/HPF) Urine WBC (0-5/HPF) Ur Epithelial Cells (NONE-FEW) Urine Bacteria (NEGATIVE) Urine Mucus (NONE-MOD) Urine Opiates Screen (NEGATIVE) Ur Oxycodone Screen (NEGATIVE) Urine Methadone Screen (NEGATIVE) Ur Barbiturates Screen (NEGATIVE) Ur Phencyclidine Scrn (NEGATIVE) Ur Amphetamine Screen (NEGATIVE) U Methamphetamines Scrn (NEGATIVE) U Benzodiazepines Scrn (NEGATIVE) U Cocaine Metab Screen (NEGATIVE) U Marijuana (THC) Screen (NEGATIVE) 01/14/19 01/14/19 01/14/19 Range/Units 17:33 17:33 17:33 WBC (4.0-11.0) K/uL RBC (4.50-5.90) M/uL Hgb (13.0-17.0) g/dL Hct (38.0-50.0) % MCV (80.0-98.0) fL MCH (27.0-32.0) pg MCHC (31.0-37.0) g/dL RDW Std Deviation (28.0-62.0) fl RDW Coeff of [place] (11.0-15.0) % Plt Count (150-400) K/uL MPV (7.40-12.00) fL Neut % (Auto) (48.0-80.0) % Lymph % (Auto) (16.0-40.0) % [place] % (Auto) (0.0-15.0) % Eos % (Auto) (0.0-7.0) % Baso % (Auto) (0.0-1.5) % Neut # (Auto) (1.4-5.7) K/uL Lymph # (Auto) (0.6-2.4) K/uL [place] # (Auto) (0.0-0.8) K/uL Eos # (Auto) (0.0-0.7) K/uL Baso # (Auto) (0.0-0.1) K/uL Nucleated RBC % /100WBC Nucleated RBCs # K/uL INR ABG pH (7.35-7.45) ABG pCO2 (35-45) mmHG ABG pO2 (75-100) mmHG ABG HCO3 (22-26) mEq/L ABG Total CO2 ABG Base Excess (-2.0-2.0) Sodium (136-148) mmol/L Potassium (3.5-5.1) mmol/L Chloride (98-107) mmol/L Carbon Dioxide (21.0-32.0) mmol/L BUN (7.0-18.0) mg/dL Creatinine (0.8-1.3) mg/dL Est Cr Clr Drug Dosing mL/min Estimated GFR (MDRD) ml/min Glucose (74-106) mg/dL Hemoglobin A1c (4.5-6.2) % Calcium (8.5-10.1) mg/dL Magnesium 2.0 (1.8-2.4) mg/dL Total Bilirubin (0.2-1.0) mg/dL AST (15-37) IU/L ALT (14-63) IU/L Alkaline Phosphatase (46-116) U/L Ammonia (19-54) ug/dL Troponin I (0.000-0.056) ng/mL B-Natriuretic Peptide (<100) PG/ML Total Protein (6.4-8.2) g/dL Albumin (3.4-5.0) g/dL Globulin (2.6-4.0) g/dL Albumin/Globulin Ratio (0.9-1.6) Triglycerides (0-200) mg/dL Cholesterol (50-200) mg/dL LDL Cholesterol, Calc (60-180) mg/dL VLDL Cholesterol (5-55) mg/dL HDL Cholesterol (40-60) mg/dL Cholesterol/HDL Ratio (3.3-6.0) Prostate Specific Ag (0.05-4.00) ng/mL Vitamin B12 906 (193-986) pg/mL TSH 3rd Generation 4.09 H (0.36-3.74) uIU/mL Prolactin ng/mL Urine Color Urine Appearance Urine pH (5.0-8.0) Ur Specific [place] (1.001-1.035) Urine Protein (NEGATIVE) mg/dL Urine Glucose (UA) (NEGATIVE) mg/dL Urine Ketones (NEGATIVE) mg/dL Urine Occult Blood (NEGATIVE) Urine Nitrite (NEGATIVE) Urine Bilirubin (NEGATIVE) Urine Urobilinogen (<2.0) EU/dL Ur Leukocyte Esterase (NEGATIVE) Urine RBC (0-2/HPF) Urine WBC (0-5/HPF) Ur Epithelial Cells (NONE-FEW) Urine Bacteria (NEGATIVE) Urine Mucus (NONE-MOD) Urine Opiates Screen (NEGATIVE) Ur Oxycodone Screen (NEGATIVE) Urine Methadone Screen (NEGATIVE) Ur Barbiturates Screen (NEGATIVE) Ur Phencyclidine Scrn (NEGATIVE) Ur Amphetamine Screen (NEGATIVE) U Methamphetamines Scrn (NEGATIVE) U Benzodiazepines Scrn (NEGATIVE) U Cocaine Metab Screen (NEGATIVE) U Marijuana (THC) Screen (NEGATIVE) 01/14/19 01/14/19 01/15/19 Range/Units 18:25 18:25 05:45 WBC (4.0-11.0) K/uL RBC (4.50-5.90) M/uL Hgb (13.0-17.0) g/dL Hct (38.0-50.0) % MCV (80.0-98.0) fL MCH (27.0-32.0) pg MCHC (31.0-37.0) g/dL RDW Std Deviation (28.0-62.0) fl RDW Coeff of Konrad (11.0-15.0) % Plt Count (150-400) K/uL MPV (7.40-12.00) fL Neut % (Auto) (48.0-80.0) % Lymph % (Auto) (16.0-40.0) % [place] % (Auto) (0.0-15.0) % Eos % (Auto) (0.0-7.0) % Baso % (Auto) (0.0-1.5) % Neut # (Auto) (1.4-5.7) K/uL Lymph # (Auto) (0.6-2.4) K/uL [place] # (Auto) (0.0-0.8) K/uL Eos # (Auto) (0.0-0.7) K/uL Baso # (Auto) (0.0-0.1) K/uL Nucleated RBC % /100WBC Nucleated RBCs # K/uL INR ABG pH (7.35-7.45) ABG pCO2 (35-45) mmHG ABG pO2 (75-100) mmHG ABG HCO3 (22-26) mEq/L ABG Total CO2 ABG Base Excess (-2.0-2.0) Sodium 145 (136-148) mmol/L Potassium 3.6 (3.5-5.1) mmol/L Chloride 108 H (98-107) mmol/L Carbon Dioxide 25.8 (21.0-32.0) mmol/L BUN 27 H (7.0-18.0) mg/dL Creatinine 1.4 H (0.8-1.3) mg/dL Est Cr Clr Drug Dosing 54.69 mL/min Estimated GFR (MDRD) 50.0 ml/min Glucose 87 (74-106) mg/dL Hemoglobin A1c (4.5-6.2) % Calcium 9.4 (8.5-10.1) mg/dL Magnesium (1.8-2.4) mg/dL Total Bilirubin 0.4 (0.2-1.0) mg/dL AST 12 L (15-37) IU/L ALT 15 (14-63) IU/L Alkaline Phosphatase 46 (46-116) U/L Ammonia (19-54) ug/dL Troponin I (0.000-0.056) ng/mL B-Natriuretic Peptide (<100) PG/ML Total Protein 6.2 L (6.4-8.2) g/dL Albumin 3.2 L (3.4-5.0) g/dL Globulin 3.0 (2.6-4.0) g/dL Albumin/Globulin Ratio 1.1 (0.9-1.6) Triglycerides (0-200) mg/dL Cholesterol (50-200) mg/dL LDL Cholesterol, Calc (60-180) mg/dL VLDL Cholesterol (5-55) mg/dL HDL Cholesterol (40-60) mg/dL Cholesterol/HDL Ratio (3.3-6.0) Prostate Specific Ag < 0.05 L (0.05-4.00) ng/mL Vitamin B12 (193-986) pg/mL TSH 3rd Generation (0.36-3.74) uIU/mL Prolactin ng/mL Urine Color YELLOW Urine Appearance CLEAR Urine pH 5.5 (5.0-8.0) Ur Specific [place] 1.020 (1.001-1.035) Urine Protein NEGATIVE (NEGATIVE) mg/dL Urine Glucose (UA) NEGATIVE (NEGATIVE) mg/dL Urine Ketones NEGATIVE (NEGATIVE) mg/dL Urine Occult Blood MODERATE H (NEGATIVE) Urine Nitrite NEGATIVE (NEGATIVE) Urine Bilirubin NEGATIVE (NEGATIVE) Urine Urobilinogen 0.2 (<2.0) EU/dL Ur Leukocyte Esterase NEGATIVE (NEGATIVE) Urine RBC 6-12 (0-2/HPF) Urine WBC NONE SEEN (0-5/HPF) Ur Epithelial Cells RARE (NONE-FEW) Urine Bacteria FEW (NEGATIVE) Urine Mucus LIGHT (NONE-MOD) Urine Opiates Screen NEGATIVE (NEGATIVE) Ur Oxycodone Screen NEGATIVE (NEGATIVE) Urine Methadone Screen NEGATIVE (NEGATIVE) Ur Barbiturates Screen NEGATIVE (NEGATIVE) Ur Phencyclidine Scrn NEGATIVE (NEGATIVE) Ur Amphetamine Screen NEGATIVE (NEGATIVE) U Methamphetamines Scrn NEGATIVE (NEGATIVE) U Benzodiazepines Scrn NEGATIVE (NEGATIVE) U Cocaine Metab Screen NEGATIVE (NEGATIVE) U Marijuana (THC) Screen NEGATIVE (NEGATIVE) 01/15/19 01/15/19 01/15/19 Range/Units 05:45 05:45 05:45 WBC 4.08 (4.0-11.0) K/uL RBC 3.82 L (4.50-5.90) M/uL Hgb 11.4 L (13.0-17.0) g/dL Hct 34.2 L (38.0-50.0) % MCV 89.5 (80.0-98.0) fL MCH 29.8 (27.0-32.0) pg MCHC 33.3 (31.0-37.0) g/dL RDW Std Deviation 44.1 (28.0-62.0) fl RDW Coeff of Kon[place] 14 (11.0-15.0) % Plt Count 146 L (150-400) K/uL MPV 10.10 (7.40-12.00) fL Neut % (Auto) 56.6 (48.0-80.0) % Lymph % (Auto) 24.0 (16.0-40.0) % [place] % (Auto) 15.0 (0.0-15.0) % Eos % (Auto) 3.9 (0.0-7.0) % Baso % (Auto) 0.5 (0.0-1.5) % Neut # (Auto) 2.3 (1.4-5.7) K/uL Lymph # (Auto) 1.0 (0.6-2.4) K/uL [place] # (Auto) 0.6 (0.0-0.8) K/uL Eos # (Auto) 0.2 (0.0-0.7) K/uL Baso # (Auto) 0.0 (0.0-0.1) K/uL Nucleated RBC % 0.0 /100WBC Nucleated RBCs # 0 K/uL INR ABG pH (7.35-7.45) ABG pCO2 (35-45) mmHG ABG pO2 (75-100) mmHG ABG HCO3 (22-26) mEq/L ABG Total CO2 ABG Base Excess (-2.0-2.0) Sodium (136-148) mmol/L Potassium (3.5-5.1) mmol/L Chloride (98-107) mmol/L Carbon Dioxide (21.0-32.0) mmol/L BUN (7.0-18.0) mg/dL Creatinine (0.8-1.3) mg/dL Est Cr Clr Drug Dosing mL/min Estimated GFR (MDRD) ml/min Glucose (74-106) mg/dL Hemoglobin A1c 5.8 (4.5-6.2) % Calcium (8.5-10.1) mg/dL Magnesium (1.8-2.4) mg/dL Total Bilirubin (0.2-1.0) mg/dL AST (15-37) IU/L ALT (14-63) IU/L Alkaline Phosphatase (46-116) U/L Ammonia (19-54) ug/dL Troponin I (0.000-0.056) ng/mL B-Natriuretic Peptide (<100) PG/ML Total Protein (6.4-8.2) g/dL Albumin (3.4-5.0) g/dL Globulin (2.6-4.0) g/dL Albumin/Globulin Ratio (0.9-1.6) Triglycerides 80 (0-200) mg/dL Cholesterol 163 (50-200) mg/dL LDL Cholesterol, Calc 110 (60-180) mg/dL VLDL Cholesterol 16 (5-55) mg/dL HDL Cholesterol 37 L (40-60) mg/dL Cholesterol/HDL Ratio 4.4 (3.3-6.0) Prostate Specific Ag (0.05-4.00) ng/mL Vitamin B12 (193-986) pg/mL TSH 3rd Generation (0.36-3.74) uIU/mL Prolactin ng/mL Urine Color Urine Appearance Urine pH (5.0-8.0) Ur Specific [place] (1.001-1.035) Urine Protein (NEGATIVE) mg/dL Urine Glucose (UA) (NEGATIVE) mg/dL Urine Ketones (NEGATIVE) mg/dL Urine Occult Blood (NEGATIVE) Urine Nitrite (NEGATIVE) Urine Bilirubin (NEGATIVE) Urine Urobilinogen (<2.0) EU/dL Ur Leukocyte Esterase (NEGATIVE) Urine RBC (0-2/HPF) Urine WBC (0-5/HPF) Ur Epithelial Cells (NONE-FEW) Urine Bacteria (NEGATIVE) Urine Mucus (NONE-MOD) Urine Opiates Screen (NEGATIVE) Ur Oxycodone Screen (NEGATIVE) Urine Methadone Screen (NEGATIVE) Ur Barbiturates Screen (NEGATIVE) Ur Phencyclidine Scrn (NEGATIVE) Ur Amphetamine Screen (NEGATIVE) U Methamphetamines Scrn (NEGATIVE) U Benzodiazepines Scrn (NEGATIVE) U Cocaine Metab Screen (NEGATIVE) U Marijuana (THC) Screen (NEGATIVE) Med Orders - Current: Current Medications Acetaminophen (Tylenol) 650 mg PO Q4H PRN PRN Reason: Pain (Mild 1-3)/fever Hydrocodone Bitart/Acetaminophen ([place] 325-5 Mg) 1 tab PO Q4H PRN PRN Reason: Pain (moderate 4-6) Aspirin (Halfprin) 81 mg PO DAILY [facility] Last Admin: 01/15/19 09:48 Dose: 81 mg Dutasteride (Avodart) 0.5 mg PO DAILY [facility] Famotidine (Pepcid) 20 mg PO BID [facility] Last Admin: 01/15/19 09:48 Dose: 20 mg Heparin Sodium (Porcine) (Heparin Sodium) 5,000 units SUBCUT Q8H [facility] Last Admin: 01/15/19 11:06 Dose: 5,000 units Levothyroxine Sodium (Levothyroxine) 75 mcg PO DAILY@0700 [facility] Last Admin: 01/15/19 07:11 Dose: 75 mcg Metoprolol Succinate (Toprol Xl) 25 mg PO DAILY [facility] Last Admin: 01/15/19 09:47 Dose: 25 mg Morphine Sulfate (Morphine) 2 mg IVPUSH Q2H PRN PRN Reason: Pain (severe 7-10) Stop: 01/15/19 18:59 Ondansetron HCl (Zofran Odt) 4 mg PO Q4H PRN PRN Reason: nausea, able to take PO Ondansetron HCl (Zofran) 4 mg IVPUSH Q4H PRN PRN Reason: Nausea Sodium Chloride (Saline Flush) 10 ml FLUSH ASDIRECTED PRN PRN Reason: Keep Vein Open Last Admin: 01/14/19 16:45 Dose: 10 ml Sodium Chloride (Saline Flush) 2.5 ml FLUSH ASDIRECTED PRN PRN Reason: Keep Vein Open Last Admin: 01/14/19 16:45 Dose: 2.5 ml Discontinued Medications Sodium Chloride (Normal Saline) 250 mls @ 999 mls/hr IV STAT [facility] Last Admin: 01/14/19 16:45 Dose: 999 mls/hr Sodium Chloride (Normal Saline) 1,000 mls @ 125 mls/hr IV STAT ONE Stop: 01/15/19 03:54 Last Admin: 01/14/19 21:04 Dose: 125 mls/hr Morphine Sulfate (Morphine) 2 mg IVPUSH Q2H PRN PRN Reason: Pain (severe 7-10) Stop: 01/15/19 18:59 - Exam General: Alert, Oriented, Cooperative, No Acute Distress Cardiovascular: Regular Rate, Regular Rhythm GI/Abdominal Exam: Normal Bowel Sounds, Soft Back Exam: Normal Inspection, Full Range of Motion Extremities: Normal Inspection, Normal Range of Motion, Non-Tender, No Pedal Edema Neurological: No New Focal Deficit, Strength Equal Bilateral, Other (dupuytrens contractures to bilateral hands) Psy/Mental Status: Alert, Normal Affect, Normal Mood - Problem List & Annotations (1) Weakness SNOMED Code(s): 98340068 Code(s): R53.1 - WEAKNESS Status: Acute (2) History of TIA (transient ischemic attack) SNOMED Code(s): 575296187 Code(s): Z86.73 - PRSNL HX OF TIA (TIA), AND CEREB INFRC W/O RESID DEFICITS Status: Chronic (3) Hypothyroidism SNOMED Code(s): 73367529 Code(s): E03.9 - HYPOTHYROIDISM, UNSPECIFIED Status: Chronic (4) Anemia in stage 3 chronic kidney disease SNOMED Code(s): 709182528 Code(s): N18.3 - CHRONIC KIDNEY DISEASE, STAGE 3 (MODERATE); D63.1 - ANEMIA IN CHRONIC KIDNEY DISEASE Status: Chronic Priority: High (5) Chronic kidney disease, stage III (moderate) SNOMED Code(s): 066842404 Code(s): N18.3 - CHRONIC KIDNEY DISEASE, STAGE 3 (MODERATE) Status: Chronic Priority: High (6) Dupuytren's contracture of both hands SNOMED Code(s): 779095141 Code(s): M72.0 - PALMAR FASCIAL FIBROMATOSIS [DUPUYTREN] Status: Chronic Priority: High (7) Hypertension SNOMED Code(s): 22793234 Code(s): I10 - ESSENTIAL (PRIMARY) HYPERTENSION Status: Chronic Priority : High Qualifiers: Hypertension type: essential hypertension Qualified Code(s): I10 - Essential (primary) hypertension - Problem List Review Problem List Initiated/Reviewed/Updated: Yes - My Orders Last 24 Hours: My Active Orders 01/15/19 08:52 Brain wo Cont [MR] Urgent 01/15/19 09:02 Orthostatic Vital Signs [RC] ASDIRECTED 01/15/19 10:14 OT Evaluation and Treatment [CONS] Routine - Plan Plan:: This 73 year old mal admitted with weakness. 1.Weakness: No further weakness today. Had event of disassociation at home yesterday, felt like he was floating and unable to move. Given gentle fluids for mild dehydration. Obtain MRI to rule out CVA. Will continue Obtain PT/OT consult. Continue ASA and start statin therapy. 2. Hematuria- no other signs of UTI. Will need to follow-up with oncology due to history of prostate cancer for further work-up. If risk of CVA will need to discuss with Oncology continuance of Lupron. 3. PMH Hypertension- will resume some of his home meds. Will monitor blood pressure. Dispo: 1-2 days <Constantine Lucas - Last Filed: 01/20/19 12:38> - Patient Data Vitals - Most Recent: Last Vital Signs Temp 36.5 C 01/16/19 12:00 Pulse 85 01/16/19 12:00 Resp 18 01/16/19 12:00 BP 122/89 01/16/19 12:00 Pulse Ox 98 01/16/19 12:00 Orthostatic Blood Pressure [ 159/76 Sitting] Orthostatic Blood Pressure [ 143/72 Standing] Orthostatic Blood Pressure [ 137/63 Supine] Med Orders - Current: Current Medications Discontinued Medications Acetaminophen (Tylenol) 650 mg PO Q4H PRN PRN Reason: Pain (Mild 1-3)/fever Hydrocodone Bitart/Acetaminophen ([place] 325-5 Mg) 1 tab PO Q4H PRN PRN Reason: Pain (moderate 4-6) Aspirin (Halfprin) 81 mg PO DAILY [facility] Last Admin: 01/16/19 08:58 Dose: 81 mg Atorvastatin Calcium (Lipitor) 40 mg PO BEDTIME [facility] Last Admin: 01/15/19 20:09 Dose: 40 mg Dutasteride (Avodart) 0.5 mg PO DAILY [facility] Last Admin: 01/16/19 08:59 Dose: 0.5 mg Famotidine (Pepcid) 20 mg PO BID [facility] Last Admin: 01/16/19 08:58 Dose: 20 mg Heparin Sodium (Porcine) (Heparin Sodium) 5,000 units SUBCUT Q8H [facility] Last Admin: 01/16/19 11:11 Dose: Not Given Sodium Chloride (Normal Saline) 250 mls @ 999 mls/hr IV STAT [facility] Last Admin: 01/14/19 16:45 Dose: 999 mls/hr Sodium Chloride (Normal Saline) 1,000 mls @ 125 mls/hr IV STAT ONE Stop: 01/15/19 03:54 Last Admin: 01/14/19 21:04 Dose: 125 mls/hr Levothyroxine Sodium (Levothyroxine) 75 mcg PO DAILY@0700 [facility] Last Admin: 01/16/19 06:34 Dose: 75 mcg Metoprolol Succinate (Toprol Xl) 25 mg PO DAILY [facility] Last Admin: 01/16/19 08:58 Dose: 25 mg Morphine Sulfate (Morphine) 2 mg IVPUSH Q2H PRN PRN Reason: Pain (severe 7-10) Stop: 01/15/19 18:59 Morphine Sulfate (Morphine) 2 mg IVPUSH Q2H PRN PRN Reason: Pain (severe 7-10) Stop: 01/15/19 18:59 Ondansetron HCl (Zofran Odt) 4 mg PO Q4H PRN PRN Reason: nausea, able to take PO Ondansetron HCl (Zofran) 4 mg IVPUSH Q4H PRN PRN Reason: Nausea Sodium Chloride (Saline Flush) 10 ml FLUSH ASDIRECTED PRN PRN Reason: Keep Vein Open Last Admin: 01/14/19 16:45 Dose: 10 ml Sodium Chloride (Saline Flush) 2.5 ml FLUSH ASDIRECTED PRN PRN Reason: Keep Vein Open Last Admin: 01/14/19 16:45 Dose: 2.5 ml
[2019-01-15] MEDS: Dutasteride 0.5 MG Cap PO SCH (11:47)
--- NOTE | 2019-01-15 14:19 | MR ---
INDICATION: Weakness. TECHNIQUE: Multiplanar multisequence noncontrast MR images were obtained through the brain. COMPARISON: CT brain 01/14/2019. FINDINGS: Motion artifact degrades T1 and SWI sequences. Prominence of the ventricles and sulci compatible with mild diffuse cerebral volume loss. No mass effect or midline shift. Scattered foci of T2 FLAIR hyperintensity in the supratentorial white matter, nonspecific though typical for sequelae of mild chronic microvascular ischemic changes. Superimposed chronic lacunar infarctions in the right taveras radiata and bilateral basal ganglia. T2 prolongation in the left thalamus may represent a chronic lacunar infarction or prominent perivascular space. Small chronic infarction involving the cortex and subcortical white matter of the left superior frontal gyrus. Small moderate-sized area of encephalomalacia and gliosis involving the inferolateral left temporal lobe and left temporal operculum. Stable ovoid structure in the region of the inferior left basal ganglia and external capsule demonstrating mild adjacent T2 FLAIR hyperintensity, potentially representing a prominent perivascular space. No recent intracranial hemorrhage or pathologic extra-axial fluid collection. No diffusion restriction to suggest acute infarction. The major arterial flow voids of the skullbase are preserved. The globes are symmetric in size. Small left maxillary sinus retention cyst or polyp. Trace right mastoid fluid. IMPRESSION: 1. No acute infarction, mass effect, or recent intracranial hemorrhage. 2. Small to moderate-sized area of encephalomalacia and gliosis involving the inferolateral left temporal lobe and left temporal operculum, potentially representing sequelae of chronic infarction or prior trauma. 3. Small chronic infarction involving the left superior frontal gyrus. 4. Mild chronic microvascular ischemic changes with superimposed chronic lacunar infarctions. 5. Mild diffuse cerebral volume loss. Dictated by Tanner Aguilar MD @ Jan 15 2019 2:09PM Signed by Dr. Tanner Aguilar @ Jan 15 2019 2:18PM
[2019-01-15] MEDS ORDERED: atorvaSTATin 40 MG Tab PO SCH (21:00)
[2019-01-16] MEDS: Heparin Sodium 5,000 Units/ML Vial SUBCUT SCH ×2 (02:33→11:11)
[2019-01-16] MEDS: Levothyroxine 75 MCG Tab PO SCH (06:34)
[2019-01-16 07:35] LABS: CARBON DIOXIDE,CO2 25.6 mmol/L (21.0-32.0); POTASSIUM,K 3.7 mmol/L (3.5-5.1)
[2019-01-16] MEDS: Aspirin 81 MG Tab.EC PO SCH (08:58)
[2019-01-16] MEDS: Metoprolol Succinate 25 MG Tab.ER PO SCH (08:58)
[2019-01-16] MEDS: Famotidine 20 MG Tab PO SCH (08:58)
[2019-01-16] MEDS: Dutasteride 0.5 MG Cap PO SCH (08:59)
--- NOTE | 2019-01-16 11:53 | PCM.DCSUM1 ---
Discharge Summary - Hospital Course Brief History: 73 y/o male with history of CKD, prostate cancer who presented to the ER complaining of generalized weakness. Patient states he was at home eating his dinner and watching TV when he decided to get up from the chair to go to the refrigerator for some water. He states that he was unable to get up from the chair. He tried to push himself up from the table but was unable to. Denies any chest pain, dyspnea, abdominal pain, dysuria, diarrhea. No headaches , change in vision. No nausea or vomiting. Denies history of seizures. He lives by himself in [place]. Denies any tobacco use and occasional alcohol. No known allergies.j. In the ER, his vitals were stable. No leukocytosis. Troponin was negative. CT head was negative for any acute findings. 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 Diagnosis: Stroke: No - Discharge Data Discharge Date: 01/16/19 Discharge Disposition: Home, W Home Health Agency 06 Condition: Good - Referral to Home Health Date of Face to Face Encounter: 01/16/19 Reason for Homebound Status: Pat is in need of assistance of caregiver and walker to leave home. He is unable to drive and needs caregiver to take him to appointments. Primary Care Physician: PCP Unknown Skilled Need: Pat is in need of senior living care to assist with monitoring new medications and monitoring appropriate medication administration. He is also in need of PT to assist withexercise program and unsteady gait along with strengthening exercises. He would also benefit from OT to home safety evaluation and ADLs assessment due to bilateral Dupuytren's contractures. - Discharge Diagnosis/Problem(s) (1) Weakness SNOMED Code(s): 72008300 ICD Code: R53.1 - WEAKNESS Status: Acute (2) History of TIA (transient ischemic attack) SNOMED Code(s): 162118866 ICD Code: Z86.73 - PRSNL HX OF TIA (TIA), AND CEREB INFRC W/O RESID DEFICITS Status: Chronic (3) Hypothyroidism SNOMED Code(s): 05153733 ICD Code: E03.9 - HYPOTHYROIDISM, UNSPECIFIED Status: Chronic (4) Anemia in stage 3 chronic kidney disease SNOMED Code(s): 560681392 ICD Code: N18.3 - CHRONIC KIDNEY DISEASE, STAGE 3 (MODERATE); D63.1 - ANEMIA IN CHRONIC KIDNEY DISEASE Status: Chronic Priority: High (5) Chronic kidney disease, stage III (moderate) SNOMED Code(s): 035072569 ICD Code: N18.3 - CHRONIC KIDNEY DISEASE, STAGE 3 (MODERATE) Status: Chronic Priority: High (6) Dupuytren's contracture of both hands SNOMED Code(s): 808662797 ICD Code: M72.0 - PALMAR FASCIAL FIBROMATOSIS [DUPUYTREN] Status: Chronic Priority: High (7) Hypertension SNOMED Code(s): 50614290 ICD Code: I10 - ESSENTIAL (PRIMARY) HYPERTENSION Status: Chronic Priority : High Qualifiers: Hypertension type: essential hypertension Qualified Code(s): I10 - Essential (primary) hypertension (8) Dizziness SNOMED Code(s): 680607887, 464636279 ICD Code: R42 - DIZZINESS AND GIDDINESS Status: Acute - Patient Summary/Data Consults: Consultations 01/14/19 19:57 Consult to Physical Therapy [PT Evaluation and Treatment] [CONS] Routine 01/15/19 10:14 OT Evaluation and Treatment [CONS] Routine - Patient Instructions Diet: Heart Healthy Diet Activity: As Tolerated Driving: Do Not Drive Showering/Bathing: May Shower Notify Provider of: Fever, Increased Pain, Swelling and Redness, Drainage, Nausea and/or Vomiting - Discharge Plan *PRESCRIPTION DRUG MONITORING PROGRAM REVIEWED*: Not Applicable *COPY OF PRESCRIPTION DRUG MONITORING REPORT IN PATIENT JENNIFER: Not Applicable Prescriptions/Med Rec: atorvaSTATin [Lipitor] 40 mg PO BEDTIME #30 tablet Home Medications: Home Meds Aspirin [[place] Aspirin EC] 81 mg PO DAILY 08/02/16 [History] Cyanocobalamin (Vitamin B-12) [B-12] 1,000 mcg PO DAILY 08/02/16 [History] Dutasteride [Avodart] 0.5 mg PO DAILY 08/02/16 [History] Hydrochlorothiazide 12.5 mg PO DAILY 08/02/16 [History] Levothyroxine Sodium [Synthroid] 75 mcg PO DAILY 08/02/16 [History] Metoprolol Succinate 25 mg PO DAILY 08/02/16 [History] Tolterodine Tartrate [Tolterodine Tartrate ER] 4 mg PO DAILY 11/21/16 [History] Umeclidinium Brm/Vilanterol Tr [Anoro Ellipta 62.5-25 MCG] 1 puff INH DAILY [History] Famotidine 20 mg PO BID 01/15/19 [History] Lisinopril 5 mg PO DAILY 01/15/19 [History] atorvaSTATin [Lipitor] 40 mg PO BEDTIME #30 tablet 01/16/19 [Rx] Patient Handouts: Weakness, [id number], Atorvastatin tablets Referrals: Jim Guillen MD [Physician] - 02/24/19 3:00 pm Thomas Phoenix MD [Physician] - 01/30/19 10:30 am Kavya Tracy MD [Physician] - 02/23/19 2:15 pm - Discharge Summary/Plan Comment DC Time >30 min.: No Discharge Summary/Plan Comment: Admitting Diagnoses: Weakness Dizziness Discharge Diagnoses: Generalized weakness Dizziness-resolved Other PMH: CKD HTN Prostate Ca Hx CVA Pat was admitted secondary to event he had at home, he has trouble describing it, but weakness all over and maybe dizziness. He was brought to the ED for evaluation. He was monitored on telemetry. Due to dizziness and history of TIA, syncope MRI of brain was obtained. This revealed no acute infarction, mass effect or intracranial hemorrhage. Small to moderate sized area of encephalomalacia and gliosis involving the inferolateral left temporal lobe and left temporal operculum likely sequelae of chronic infarction. Small chronic infarction involving left superior frontal gyrus, mild chronic microvascular ischemic changes with superimposed chronic lacunar infarctions. He was notified of no acute findings. He was kept to be evaluated by PT, which felt he was ok for discharge, but recommended Home Health PT to help with gait and exercise program at home. This morning, telemetry noted 2nd degree block, patient was asymptomatic and VS were stable, he was sitting in the chair eating breakfast. EKG obtained but patient had converted back to SR with 1st degree block. We will place Zio patch for 14 day monitoring and have patient see Cardiology as outpatient due to event at home as well as history of passing out. I will start Atorvastatin 40 mg due to age and needing only slight improvement in cholesterol panel. He is to continue ASA. I will leave the discussion of continuing Lupron with potential cardiovascular side effects to Dr Frias and Dr Tracy due to risk benefit profile with prostate CA. He is to continue BP medications at home with no changes. He was also noted to have microscopic hematuria. He is to follow up with Dr Frias and Dr Tracy regarding this and his history of prostate ca. He is to return to clinic or ED if concerns should arise. - Patient Data Vitals - Most Recent: Last Vital Signs Temp 97.5 F 01/16/19 08:00 Pulse 70 01/16/19 08:58 Resp 18 01/16/19 08:00 BP 138/62 01/16/19 08:58 Pulse Ox 94 L 01/16/19 08:00 Orthostatic Blood Pressure [ 159/76 Sitting] Orthostatic Blood Pressure [ 143/72 Standing] Orthostatic Blood Pressure [ 137/63 Supine] Weight - Most Recent: 111.221 kg I&O - Last 24 hours: Intake & Output 01/15/19 01/16/19 01/16/19 22:59 06:59 14:59 Intake Total 800 400 Output Total 1025 1165 Balance -225 -765 Lab Results - Last 24 hrs: Laboratory Results - last 24 hr 01/16/19 01/16/19 Range/Units 07:08 07:08 WBC 4.78 (4.0-11.0) K/uL RBC 4.07 L (4.50-5.90) M/uL Hgb 12.4 L (13.0-17.0) g/dL Hct 37.0 L (38.0-50.0) % MCV 90.9 (80.0-98.0) fL MCH 30.5 (27.0-32.0) pg MCHC 33.5 (31.0-37.0) g/dL RDW Std Deviation 45.5 (28.0-62.0) fl RDW Coeff of Konrad 14 (11.0-15.0) % Plt Count 168 (150-400) K/uL MPV 10.10 (7.40-12.00) fL Neut % (Auto) 58.6 (48.0-80.0) % Lymph % (Auto) 24.5 (16.0-40.0) % Jennings % (Auto) 13.2 (0.0-15.0) % Eos % (Auto) 3.3 (0.0-7.0) % Baso % (Auto) 0.4 (0.0-1.5) % Neut # (Auto) 2.8 (1.4-5.7) K/uL Lymph # (Auto) 1.2 (0.6-2.4) K/uL Jennings # (Auto) 0.6 (0.0-0.8) K/uL Eos # (Auto) 0.2 (0.0-0.7) K/uL Baso # (Auto) 0.0 (0.0-0.1) K/uL Nucleated RBC % 0.0 /100WBC Nucleated RBCs # 0 K/uL Sodium 143 (136-148) mmol/L Potassium 3.7 (3.5-5.1) mmol/L Chloride 108 H (98-107) mmol/L Carbon Dioxide 25.6 (21.0-32.0) mmol/L BUN 28 H (7.0-18.0) mg/dL Creatinine 1.4 H (0.8-1.3) mg/dL Est Cr Clr Drug Dosing 54.69 mL/min Estimated GFR (MDRD) 50.0 ml/min Glucose 95 (74-106) mg/dL Calcium 9.9 (8.5-10.1) mg/dL Total Bilirubin 0.7 (0.2-1.0) mg/dL AST 15 (15-37) IU/L ALT 20 (14-63) IU/L Alkaline Phosphatase 50 (46-116) U/L Total Protein 6.9 (6.4-8.2) g/dL Albumin 3.6 (3.4-5.0) g/dL Globulin 3.3 (2.6-4.0) g/dL Albumin/Globulin Ratio 1.1 (0.9-1.6) Med Orders - Current: Current Medications Acetaminophen (Tylenol) 650 mg PO Q4H PRN PRN Reason: Pain (Mild 1-3)/fever Hydrocodone Bitart/Acetaminophen ([place] 325-5 Mg) 1 tab PO Q4H PRN PRN Reason: Pain (moderate 4-6) Aspirin (Halfprin) 81 mg PO DAILY [facility] Last Admin: 01/16/19 08:58 Dose: 81 mg Atorvastatin Calcium (Lipitor) 40 mg PO BEDTIME JERROD Last Admin: 01/15/19 20:09 Dose: 40 mg Dutasteride (Avodart) 0.5 mg PO DAILY [facility] Last Admin: 01/16/19 08:59 Dose: 0.5 mg Famotidine (Pepcid) 20 mg PO BID [facility] Last Admin: 01/16/19 08:58 Dose: 20 mg Heparin Sodium (Porcine) (Heparin Sodium) 5,000 units SUBCUT Q8H [facility] Last Admin: 01/16/19 11:11 Dose: Not Given Levothyroxine Sodium (Levothyroxine) 75 mcg PO DAILY@0700 [facility] Last Admin: 01/16/19 06:34 Dose: 75 mcg Metoprolol Succinate (Toprol Xl) 25 mg PO DAILY [facility] Last Admin: 01/16/19 08:58 Dose: 25 mg Ondansetron HCl (Zofran Odt) 4 mg PO Q4H PRN PRN Reason: nausea, able to take PO Ondansetron HCl (Zofran) 4 mg IVPUSH Q4H PRN PRN Reason: Nausea Sodium Chloride (Saline Flush) 10 ml FLUSH ASDIRECTED PRN PRN Reason: Keep Vein Open Last Admin: 01/14/19 16:45 Dose: 10 ml Sodium Chloride (Saline Flush) 2.5 ml FLUSH ASDIRECTED PRN PRN Reason: Keep Vein Open Last Admin: 01/14/19 16:45 Dose: 2.5 ml Discontinued Medications Sodium Chloride (Normal Saline) 250 mls @ 999 mls/hr IV STAT [facility] Last Admin: 01/14/19 16:45 Dose: 999 mls/hr Sodium Chloride (Normal Saline) 1,000 mls @ 125 mls/hr IV STAT ONE Stop: 01/15/19 03:54 Last Admin: 01/14/19 21:04 Dose: 125 mls/hr Morphine Sulfate (Morphine) 2 mg IVPUSH Q2H PRN PRN Reason: Pain (severe 7-10) Stop: 01/15/19 18:59 Morphine Sulfate (Morphine) 2 mg IVPUSH Q2H PRN PRN Reason: Pain (severe 7-10) Stop: 01/15/19 18:59
[2019-01-16 13:28] VITALS: BP 122/89; PULSE 85
== END 2019-01-16 13:20 | disposition home health service (06) ==
LOC: MW.ED 16:16 → MW.MS 18:34
PROVIDERS: ADMIT Student in an Organized Health Care Education/Training Program; ATTEND Student in an Organized Health Care Education/Training Program
DX: R53.1 Weakness (principal); R42 Dizziness and giddiness; R31.9 Hematuria, unspecified; I12.9 Hypertensive chronic kidney disease with stage 1 through stage 4 chronic kidney disease, or unspecified chronic kidney disease; N18.3 Chronic kidney disease, stage 3 (moderate); D63.1 Anemia in chronic kidney disease; E03.9 Hypothyroidism, unspecified; J44.9 Chronic obstructive pulmonary disease, unspecified; C61 Malignant neoplasm of prostate; M72.0 Palmar fascial fibromatosis [Dupuytren]; Z86.73 Personal history of transient ischemic attack (TIA), and cerebral infarction without residual deficits; Z87.891 Personal history of nicotine dependence; Z79.82 Long term (current) use of aspirin; Z79.899 Other long term (current) drug therapy
CPT/HCPCS: 36415; 36600; 70450; 70551; 71045; 80053; 80061; 80305; 81001; 82140; 82607; 82803; 83036; 83735; 83880; 84146; 84153; 84443; 84484; 85025; 85610; 93005; 97161; 99285; A9270; J1644; J7040; J7050; 96372; 99284; G0378

== ENCOUNTER 2019-02-03 08:57 | Observation (INO) | payer MEDICARE, MEDICAID ==
[2019-02-03 10:20] LABS: BLOOD UREA NITROGEN,BUN 35 mg/dL (7.0-18.0); CARBON DIOXIDE,CO2 27.9 mmol/L (21.0-32.0); CHLORIDE,CL 107 mmol/L (98-107); GLUCOSE RANDOM 86 mg/dL (74-106); POTASSIUM,K 4.2 mmol/L (3.5-5.1); SODIUM,NA 141 mmol/L (136-148)
[2019-02-03] MEDS ORDERED: Acetaminophen 325 MG Tab PO PRN (12:07)
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
[2019-02-03] MEDS ORDERED: Sodium Chloride 0.9% 500 ML IV SCH (12:15)
[2019-02-03] MEDS: Sodium Chloride 0.9% 1,000 ML IV SCH ×2 (13:54→23:30)
[2019-02-03] MEDS: Heparin Sodium 5,000 Units/ML Vial SUBCUT SCH (15:32)
[2019-02-03] MEDS ORDERED: atorvaSTATin 40 MG Tab PO SCH (21:00)
[2019-02-04] MEDS: Heparin Sodium 5,000 Units/ML Vial SUBCUT SCH (04:00)
[2019-02-04 05:15] LABS: CARBON DIOXIDE,CO2 25.7 mmol/L (21.0-32.0); POTASSIUM,K 3.9 mmol/L (3.5-5.1)
[2019-02-04] MEDS ORDERED: Levothyroxine 75 MCG Tab PO SCH (07:30)
[2019-02-04] MEDS ORDERED: VILANTEROL TR INH SCH (09:00)
[2019-02-04] MEDS ORDERED: Aspirin 81 MG Tab.EC PO SCH (09:00)
[2019-02-04] MEDS ORDERED: UMECLIDINIUM BRM INH SCH (09:00)
[2019-02-04] MEDS: Sodium Chloride 0.9% 1,000 ML IV SCH (09:26)
[2019-02-04] MEDS ORDERED: Docusate Sodium 100 MG Cap PO PRN (10:40)
--- NOTE | 2019-02-04 12:22 | PCM.DCSUM1 ---
Discharge Summary - Discharge Data Discharge Disposition: Home, Self-Care 01 Condition: Good - Referral to Home Health Primary Care Physician: Thomas Phoenix MD - Discharge Plan Home Medications: Home Meds Aspirin [[place] Aspirin EC] 81 mg PO DAILY 08/02/16 [History] Cyanocobalamin (Vitamin B-12) [B-12] 1,000 mcg PO DAILY 08/02/16 [History] Dutasteride [Avodart] 0.5 mg PO DAILY 08/02/16 [History] Levothyroxine Sodium [Synthroid] 75 mcg PO ACBREAKFAST 08/02/16 [History] Tolterodine Tartrate [Tolterodine Tartrate ER] 4 mg PO DAILY 11/21/16 [History] Umeclidinium Brm/Vilanterol Tr [Anoro Ellipta 62.5-25 MCG] 1 puff INH DAILY [History] Famotidine 20 mg PO BID PRN 01/15/19 [History] atorvaSTATin [Lipitor] 40 mg PO BEDTIME #30 tablet 01/16/19 [Rx] Patient Handouts: Hypotension, [id number] Referrals: Thomas Phoenix MD [Primary Care Provider] - 02/19/19 1:30 pm - Patient Data Vitals - Most Recent: Last Vital Signs Temp 36.3 C 02/04/19 07:28 Pulse 59 L 02/04/19 07:28 Resp 17 02/04/19 07:28 BP 119/57 L 02/04/19 07:28 Pulse Ox 96 02/04/19 07:28 Orthostatic Blood Pressure [ 97/56 Supine] Orthostatic Blood Pressure [ 108/52 Standing] Orthostatic Blood Pressure [ 114/57 Sitting] Weight - Most Recent: 108.7 kg I&O - Last 24 hours: Intake & Output 02/03/19 02/04/19 02/04/19 22:59 06:59 14:59 Intake Total 1178 1270 Output Total 200 500 Balance 978 770 Lab Results - Last 24 hrs: Laboratory Results - last 24 hr 02/03/19 02/04/19 02/04/19 Range/Units 13:20 04:35 04:35 WBC 4.63 (4.0-11.0) K/uL RBC 3.81 L (4.50-5.90) M/uL Hgb 11.6 L (13.0-17.0) g/dL Hct 35.0 L (38.0-50.0) % MCV 91.9 (80.0-98.0) fL MCH 30.4 (27.0-32.0) pg MCHC 33.1 (31.0-37.0) g/dL RDW Std Deviation 45.4 (28.0-62.0) fl RDW Coeff of Konrad 14 (11.0-15.0) % Plt Count 179 (150-400) K/uL MPV 10.30 (7.40-12.00) fL Neut % (Auto) 61.6 (48.0-80.0) % Lymph % (Auto) 24.2 (16.0-40.0) % [place] % (Auto) 10.8 (0.0-15.0) % Eos % (Auto) 3.0 (0.0-7.0) % Baso % (Auto) 0.4 (0.0-1.5) % Neut # (Auto) 2.9 (1.4-5.7) K/uL Lymph # (Auto) 1.1 (0.6-2.4) K/uL Burke # (Auto) 0.5 (0.0-0.8) K/uL Eos # (Auto) 0.1 (0.0-0.7) K/uL Baso # (Auto) 0.0 (0.0-0.1) K/uL Nucleated RBC % 0.0 /100WBC Nucleated RBCs # 0 K/uL Sodium 142 (136-148) mmol/L Potassium 3.9 (3.5-5.1) mmol/L Chloride 108 H (98-107) mmol/L Carbon Dioxide 25.7 (21.0-32.0) mmol/L BUN 35 H (7.0-18.0) mg/dL Creatinine 1.8 H (0.8-1.3) mg/dL Est Cr Clr Drug Dosing 43.76 mL/min Estimated GFR (MDRD) 37.4 ml/min Glucose 95 (74-106) mg/dL Calcium 9.2 (8.5-10.1) mg/dL Urine Color YELLOW Urine Appearance CLEAR Urine pH 6.0 (5.0-8.0) Ur Specific [place] 1.015 (1.001-1.035) Urine Protein NEGATIVE (NEGATIVE) mg/dL Urine Glucose (UA) NEGATIVE (NEGATIVE) mg/dL Urine Ketones NEGATIVE (NEGATIVE) mg/dL Urine Occult Blood NEGATIVE (NEGATIVE) Urine Nitrite NEGATIVE (NEGATIVE) Urine Bilirubin NEGATIVE (NEGATIVE) Urine Urobilinogen 0.2 (<2.0) EU/dL Ur Leukocyte Esterase NEGATIVE (NEGATIVE) Med Orders - Current: Current Medications Acetaminophen (Tylenol) 650 mg PO Q4H PRN PRN Reason: Pain (Mild 1-3)/fever Aspirin (Halfprin) 81 mg PO DAILY [facility] Last Admin: 02/04/19 08:42 Dose: 81 mg Atorvastatin Calcium (Lipitor) 40 mg PO BEDTIME [facility] Last Admin: 02/03/19 20:06 Dose: 40 mg Docusate Sodium (Colace) 100 mg PO DAILY PRN PRN Reason: Constipation Heparin Sodium (Porcine) (Heparin Sodium) 5,000 units SUBCUT Q12H [facility] Last Admin: 02/04/19 04:00 Dose: 5,000 units Sodium Chloride (Normal Saline) 1,000 mls @ 100 mls/hr IV ASDIRECTED [facility] Last Admin: 02/04/19 09:26 Dose: 100 mls/hr Levothyroxine Sodium (Levothyroxine) 75 mcg PO ACBREAKFAST [facility] Last Admin: 02/04/19 06:40 Dose: 75 mcg Umeclidinium Brm/Vilanterol Tr (1 Puff) 0 each INH DAILY [facility] Last Admin: 02/04/19 08:43 Dose: Not Given Discontinued Medications Sodium Chloride (Normal Saline) 500 mls @ 999 mls/hr IV STAT [facility] Stop: 02/03/19 12:46 Last Admin: 02/03/19 12:46 Dose: 999 mls/hr
[2019-02-04 13:27] VITALS: BP 110/61; PULSE 76
--- NOTE | 2019-02-04 13:28 | PCM.DCSUM1 ---
Discharge Summary - Discharge Data Discharge Date: 02/04/19 Discharge Disposition: Home, Self-Care 01 Condition: Good - Referral to Home Health Primary Care Physician: Thomas Phoenix MD - Patient Summary/Data Hospital Course: 73 year old male with pmh of CKD, prostate CA, CVA, and dizziness who presented to the nephrology for follow up appointment. He was noted to be hypotensive and elevated Cr at 2.3. up from baseline of 1.4. It was felt his hypotension was due to continued use of his antihypertensive medications. He has been told to stop taking his antihypertensive but according to his pharmacy he has recently filled his prescription of lisinopril. Patient is uncertain of which medications he has been taking. He was given IV fluids and monitored overnight. His dizziness and hypotension resolved. His Creatinine improved to 1.8. He was discharged home today and instructed to stop taking his antihypertensive medications. - Discharge Plan Home Medications: Home Meds Aspirin [[place]ell Aspirin EC] 81 mg PO DAILY 08/02/16 [History] Cyanocobalamin (Vitamin B-12) [B-12] 1,000 mcg PO DAILY 08/02/16 [History] Dutasteride [Avodart] 0.5 mg PO DAILY 08/02/16 [History] Levothyroxine Sodium [Synthroid] 75 mcg PO ACBREAKFAST 08/02/16 [History] Tolterodine Tartrate [Tolterodine Tartrate ER] 4 mg PO DAILY 11/21/16 [History] Umeclidinium Brm/Vilanterol Tr [Anoro Ellipta 62.5-25 MCG] 1 puff INH DAILY [History] Famotidine 20 mg PO BID PRN 01/15/19 [History] atorvaSTATin [Lipitor] 40 mg PO BEDTIME #30 tablet 01/16/19 [Rx] Patient Handouts: Hypotension, [id number] Referrals: [facility] [Ordering Only Provider] - Thomas Phoenix MD [Primary Care Provider] - 02/19/19 1:30 pm - Discharge Summary/Plan Comment DC Time >30 min.: No - Patient Data Vitals - Most Recent: Last Vital Signs Temp 36.3 C 02/04/19 07:28 Pulse 59 L 02/04/19 07:28 Resp 17 02/04/19 07:28 BP 119/57 L 11/20/19 07:28 Pulse Ox 96 02/04/19 07:28 Orthostatic Blood Pressure [ 97/56 Supine] Orthostatic Blood Pressure [ 108/52 Standing] Orthostatic Blood Pressure [ 114/57 Sitting] Weight - Most Recent: 108.7 kg I&O - Last 24 hours: Intake & Output 02/03/19 02/04/19 02/04/19 22:59 06:59 14:59 Intake Total 1178 1270 Output Total 200 500 Balance 978 770 Lab Results - Last 24 hrs: Laboratory Results - last 24 hr 02/03/19 02/04/19 02/04/19 Range/Units 13:20 04:35 04:35 WBC 4.63 (4.0-11.0) K/uL RBC 3.81 L (4.50-5.90) M/uL Hgb 11.6 L (13.0-17.0) g/dL Hct 35.0 L (38.0-50.0) % MCV 91.9 (80.0-98.0) fL MCH 30.4 (27.0-32.0) pg MCHC 33.1 (31.0-37.0) g/dL RDW Std Deviation 45.4 (28.0-62.0) fl RDW Coeff of Konrad 14 (11.0-15.0) % Plt Count 179 (150-400) K/uL MPV 10.30 (7.40-12.00) fL Neut % (Auto) 61.6 (48.0-80.0) % Lymph % (Auto) 24.2 (16.0-40.0) % [place] % (Auto) 10.8 (0.0-15.0) % Eos % (Auto) 3.0 (0.0-7.0) % Baso % (Auto) 0.4 (0.0-1.5) % Neut # (Auto) 2.9 (1.4-5.7) K/uL Lymph # (Auto) 1.1 (0.6-2.4) K/uL [place] # (Auto) 0.5 (0.0-0.8) K/uL Eos # (Auto) 0.1 (0.0-0.7) K/uL Baso # (Auto) 0.0 (0.0-0.1) K/uL Nucleated RBC % 0.0 /100WBC Nucleated RBCs # 0 K/uL Sodium 142 (136-148) mmol/L Potassium 3.9 (3.5-5.1) mmol/L Chloride 108 H (98-107) mmol/L Carbon Dioxide 25.7 (21.0-32.0) mmol/L BUN 35 H (7.0-18.0) mg/dL Creatinine 1.8 H (0.8-1.3) mg/dL Est Cr Clr Drug Dosing 43.76 mL/min Estimated GFR (MDRD) 37.4 ml/min Glucose 95 (74-106) mg/dL Calcium 9.2 (8.5-10.1) mg/dL Urine Color YELLOW Urine Appearance CLEAR Urine pH 6.0 (5.0-8.0) Ur Specific [place] 1.015 (1.001-1.035) Urine Protein NEGATIVE (NEGATIVE) mg/dL Urine Glucose (UA) NEGATIVE (NEGATIVE) mg/dL Urine Ketones NEGATIVE (NEGATIVE) mg/dL Urine Occult Blood NEGATIVE (NEGATIVE) Urine Nitrite NEGATIVE (NEGATIVE) Urine Bilirubin NEGATIVE (NEGATIVE) Urine Urobilinogen 0.2 (<2.0) EU/dL Ur Leukocyte Esterase NEGATIVE (NEGATIVE) Med Orders - Current: Current Medications Acetaminophen (Tylenol) 650 mg PO Q4H PRN PRN Reason: Pain (Mild 1-3)/fever Aspirin (Halfprin) 81 mg PO DAILY [facility] Last Admin: 02/04/19 08:42 Dose: 81 mg Atorvastatin Calcium (Lipitor) 40 mg PO BEDTIME [facility] Last Admin: 02/03/19 20:06 Dose: 40 mg Docusate Sodium (Colace) 100 mg PO DAILY PRN PRN Reason: Constipation Heparin Sodium (Porcine) (Heparin Sodium) 5,000 units SUBCUT Q12H [facility] Last Admin: 02/04/19 04:00 Dose: 5,000 units Sodium Chloride (Normal Saline) 1,000 mls @ 100 mls/hr IV ASDIRECTED [facility] Last Admin: 02/04/19 09:26 Dose: 100 mls/hr Levothyroxine Sodium (Levothyroxine) 75 mcg PO ACBREAKFAST [facility] Last Admin: 02/04/19 06:40 Dose: 75 mcg Umeclidinium Brm/Vilanterol Tr (1 Puff) 0 each INH DAILY [facility] Last Admin: 02/04/19 08:43 Dose: Not Given Discontinued Medications Sodium Chloride (Normal Saline) 500 mls @ 999 mls/hr IV STAT [facility] Stop: 02/03/19 12:46 Last Admin: 02/03/19 12:46 Dose: 999 mls/hr
== END 2019-02-04 12:55 | disposition home or self-care (01) ==
LOC: MW.LAB 08:57 → MW.MS 11:32
PROVIDERS: ADMIT Internal Medicine; ATTEND Internal Medicine
DX: I95.9 Hypotension, unspecified (principal); N17.9 Acute kidney failure, unspecified; I12.9 Hypertensive chronic kidney disease with stage 1 through stage 4 chronic kidney disease, or unspecified chronic kidney disease; N18.3 Chronic kidney disease, stage 3 (moderate); D63.1 Anemia in chronic kidney disease; J44.9 Chronic obstructive pulmonary disease, unspecified; K21.9 Gastro-esophageal reflux disease without esophagitis; N40.0 Benign prostatic hyperplasia without lower urinary tract symptoms; M19.90 Unspecified osteoarthritis, unspecified site; E03.9 Hypothyroidism, unspecified; E66.9 Obesity, unspecified; M72.0 Palmar fascial fibromatosis [Dupuytren]; Z79.82 Long term (current) use of aspirin; Z79.899 Other long term (current) drug therapy; Z87.891 Personal history of nicotine dependence; Z86.73 Personal history of transient ischemic attack (TIA), and cerebral infarction without residual deficits; Z68.30 Body mass index [BMI] 30.0-30.9, adult
CPT/HCPCS: 36415; 80048; 80069; 81003; 82607; 82728; 82746; 83550; 85025; 85027; 93005; 96360; 96361; 96372; A9270; G0378; J1644; J7040

== ENCOUNTER 2019-03-17 09:59 | Inpatient (IN) | payer MEDICARE, MEDICAID ==
--- NOTE | 2019-03-17 11:28 | CR ---
Chest: Frontal view of the chest was obtained. Comparison: Prior chest x-ray of 01/14/19. Minimal parenchymal density is seen above the left hemidiaphragm most of which appears to be chronic. Other findings within the left base most likely represents mild atelectasis. Nodule is noted within the right lung base which is stable and most likely representing a granuloma. No acute parenchymal process is appreciated within either lung. Heart size is normal. Bony structures are grossly intact. Metallic density is noted over the upper mid chest which is stable. Impression: 1. Findings as noted above. 2. Nothing acute is definitely appreciated. Diagnostic code #2 This report was dictated in [place] Standard Time
[2019-03-17 11:34] LABS: BLOOD UREA NITROGEN,BUN 25 mg/dL (7.0-18.0); CARBON DIOXIDE,CO2 26.2 mmol/L (21.0-32.0); CHLORIDE,CL 104 mmol/L (98-107); GLUCOSE RANDOM 90 mg/dL (74-106); POTASSIUM,K 3.7 mmol/L (3.5-5.1); SODIUM,NA 139 mmol/L (136-148)
--- NOTE | 2019-03-17 11:38 | CT ---
Head CT Technique: Multiple axial sections through the brain were obtained. Intravenous contrast was not utilized. Comparison: Prior head CT exam of 01/14/19. Findings: Ventricles along with basal cisterns and sulci are the convexities are mildly prominent. Stable cyst noted within the medial left temporal lobe measuring approximately 1.6 cm in size. Several old lacunar infarcts noted within the basal ganglia. Low-density subcortical lesion is seen within the anterior left frontal region which is an interval change from prior exam and has the appearance of small subacute infarct. No other abnormal parenchymal densities are seen. No midline shift or mass effect is seen. No intracranial hemorrhage is identified. Bone window settings were reviewed. Nothing acute is seen within the mastoid sinuses. Visualized paranasal sinuses shows a retention cyst on the left side within the maxillary sinus. Nothing acute is seen within the paranasal sinuses. Atherosclerotic calcification is noted within the carotid siphon. Impression: 1. Low density within the subcortical white matter within the left frontal region which is felt compatible with a small subacute infarct. This is an interval change from previous exam. 2. Other senescent change as noted above. No intracranial hemorrhage is seen. 3. Incidental retention cyst within the left maxillary sinus. Diagnostic code #3 This report was dictated in [place] Standard Time
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
[2019-03-17] MEDS ORDERED: Sodium Chloride 0.9% 2.5 ML Syringe FLUSH PRN (12:44)
[2019-03-17] MEDS ORDERED: Sodium Chloride 0.9% 10 ML Syringe FLUSH PRN (12:44)
[2019-03-17] MEDS ORDERED: Ondansetron 4 MG/2 ML SDV IVPUSH PRN (12:44)
[2019-03-17] MEDS ORDERED: Acetaminophen 325 MG Tab PO PRN (12:44)
[2019-03-17] MEDS ORDERED: Bisacodyl 10 MG Supp RECTAL PRN (12:45)
[2019-03-17] MEDS ORDERED: Famotidine 20 MG Tab PO PRN (14:13)
[2019-03-17] MEDS: Heparin Sodium 5,000 Units/ML Vial SUBCUT SCH ×2 (14:15→21:53)
[2019-03-17] MEDS: atorvaSTATin 40 MG Tab PO SCH (20:31)
[2019-03-17] MEDS: Docusate Sodium 100 MG Cap PO SCH (20:31)
[2019-03-18] MEDS: Heparin Sodium 5,000 Units/ML Vial SUBCUT SCH ×3 (05:19→21:20)
[2019-03-18] MEDS: Dutasteride 0.5 MG Cap PO SCH (11:42)
[2019-03-18] MEDS: Cyanocobalamin (Vitamin B12) 500 MCG Tab PO SCH (11:42)
[2019-03-18] MEDS: Aspirin 81 MG Tab.EC PO SCH (11:42)
[2019-03-18] MEDS: Levothyroxine 88 MCG Tab PO SCH (11:42)
[2019-03-18] MEDS: Docusate Sodium 100 MG Cap PO SCH ×2 (11:43→21:20)
[2019-03-18] MEDS: Tolterodine 2 MG Cap.ER PO SCH (11:44)
[2019-03-18] MEDS: Umeclidinium Brm/Vilanterol Tr 1 PUFF INH SCH (11:54)
--- NOTE | 2019-03-18 13:23 | PCM.PN ---
- General Info Date of Service: 03/18/19 - Review of Systems Systems Review Comment:: no complaints today, pleasant. - Patient Data Vitals - Most Recent: Last Vital Signs Temp 36.1 C 03/18/19 11:48 Pulse 84 03/18/19 11:48 Resp 16 03/18/19 11:48 BP 124/84 03/18/19 11:48 Pulse Ox 97 03/18/19 12:44 Weight - Most Recent: 120 kg I&O - Last 24 Hours: Intake & Output 03/17/19 03/18/19 03/18/19 22:59 06:59 14:59 Intake Total 240 400 Output Total 400 Balance 240 0 Lab Results Last 24 Hours: Laboratory Results - last 24 hr 03/17/19 Range/Units 10:32 Urine Opiates Screen NEGATIVE (NEGATIVE) Ur Oxycodone Screen NEGATIVE (NEGATIVE) Urine Methadone Screen NEGATIVE (NEGATIVE) Ur Barbiturates Screen NEGATIVE (NEGATIVE) Ur Phencyclidine Scrn NEGATIVE (NEGATIVE) Ur Amphetamine Screen NEGATIVE (NEGATIVE) U Methamphetamines Scrn NEGATIVE (NEGATIVE) U Benzodiazepines Scrn NEGATIVE (NEGATIVE) U Cocaine Metab Screen NEGATIVE (NEGATIVE) U Marijuana (THC) Screen NEGATIVE (NEGATIVE) Med Orders - Current: Current Medications Acetaminophen (Tylenol) 650 mg PO Q4H PRN PRN Reason: Pain Aspirin (Halfprin) 81 mg PO DAILY [facility] Last Admin: 03/18/19 11:42 Dose: 81 mg Atorvastatin Calcium (Lipitor) 40 mg PO BEDTIME [facility] Last Admin: 03/17/19 20:31 Dose: 40 mg Bisacodyl (Dulcolax) 10 mg RECTAL DAILY PRN PRN Reason: Constipation Cyanocobalamin (Vitamin B12) 1,000 mcg PO DAILY [facility] Last Admin: 03/18/19 11:42 Dose: 1,000 mcg Docusate Sodium (Colace) 100 mg PO BID [facility] Last Admin: 03/18/19 11:43 Dose: 100 mg Dutasteride (Avodart) 0.5 mg PO DAILY [facility] Last Admin: 03/18/19 11:42 Dose: 0.5 mg Famotidine (Pepcid) 20 mg PO BID PRN PRN Reason: acid reflux Heparin Sodium (Porcine) (Heparin Sodium) 5,000 units SUBCUT Q8H [facility] Last Admin: 03/18/19 12:00 Dose: 5,000 units Levothyroxine Sodium (Synthroid) 88 mcg PO ACBREAKFAST [facility] Last Admin: 03/18/19 11:42 Dose: 88 mcg Ondansetron HCl (Zofran) 4 mg IVPUSH Q4H PRN PRN Reason: Nausea Umeclidinium Brm/ (Vilanterol Tr 1 Puff) 0 each INH DAILY [facility] Last Admin: 03/18/19 11:54 Dose: 1 each Quetiapine Fumarate (Seroquel) 25 mg PO BEDTIME PRN PRN Reason: Agitation Last Admin: 03/17/19 20:31 Dose: 50 mg Sodium Chloride (Saline Flush) 10 ml FLUSH ASDIRECTED PRN PRN Reason: Keep Vein Open Sodium Chloride (Saline Flush) 2.5 ml FLUSH ASDIRECTED PRN PRN Reason: Keep Vein Open Tolterodine Tartrate (Detrol La 24 Hr) 4 mg PO DAILY [facility] Last Admin: 03/18/19 11:44 Dose: 4 mg - Exam General: Alert, Oriented Neck: Supple Lungs: Clear to Auscultation, Normal Respiratory Effort, Rhonchi Cardiovascular: Regular Rate Extremities: Non-Tender, No Pedal Edema Neurological: No New Focal Deficit Sepsis Event Note - Evaluation Sepsis Screening Result: No Definite Risk - Focused Exam Vital Signs: Vital Signs Temp Pulse Resp BP Pulse Ox Pulse Ox 03/18/19 12:44 97 03/18/19 11:48 36.1 C 84 16 124/84 97 Date Exam was Performed: 03/18/19 Time Exam was Performed: 13:21 - Problem List Review Problem List Initiated/Reviewed/Updated: Yes - My Orders Last 24 Hours: My Active Orders 03/17/19 22:30 [employer] Driver Discontinue [Cardiac Monitoring Discontinue] [RC] Click to Edit - Plan Plan:: This 74 year old male admitted increasing AMS, noted to have new subacute CVA on head CT 1. 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 continue ASA and statin 2. COPD: Stable, continue home inhaler. 3. Prostate CA: Hx of Lupron injections, unsure of last dose. Incontinent at baseline. 4. Hypothyroidism: Levothyroxine dose just increased by PCP on 03/10 to 88 mcg. Will start this now. VTE prophylaxis: Heparin Dispo: 2-3 days pending improvement. Consider placement as family is unable to care for him at home and he lives alone.
[2019-03-18] MEDS ORDERED: Haloperidol Lactate 5 MG/ML SDV IM PRN (17:46)
[2019-03-18] MEDS ORDERED: Haloperidol 5 MG Tab PO ONE (18:15)
[2019-03-18] MEDS: atorvaSTATin 40 MG Tab PO SCH (21:20)
[2019-03-19] MEDS: Heparin Sodium 5,000 Units/ML Vial SUBCUT SCH ×3 (05:24→20:54)
[2019-03-19 05:55] LABS: CARBON DIOXIDE,CO2 24.6 mmol/L (21.0-32.0); POTASSIUM,K 3.9 mmol/L (3.5-5.1)
[2019-03-19] MEDS: Levothyroxine 88 MCG Tab PO SCH (07:08)
--- NOTE | 2019-03-19 09:08 | PCM.PN ---
Addendum entered and electronically signed by Juliann Pemberton NP 03/19/19 09:18 : Patient no longer combative. Cooperative this morning. Patient combative first night he was here, but at the time he was acutely altered and likely had some delirium due to recent new CVA. Delirium appears to be clearing now. Original Note: - General Info Date of Service: 03/19/19 Admission Dx/Problem (Free Text): Admission Diagnosis/Problem Admission Diagnosis/Problem CVA, Cerebrovascular accident, AMS Subjective Update: Sleeping this morning, easily awakens. Denies any pain. Unwilling to answer questions. Talkative. Just wants to sleep. Functional Status: Reports: Pain Controlled - Review of Systems Pulmonary: Reports: No Symptoms. Denies: Shortness of Breath Cardiovascular: Reports: No Symptoms. Denies: Chest Pain Gastrointestinal: Reports: No Symptoms. Denies: Abdominal Pain - Patient Data Vitals - Most Recent: Last Vital Signs Temp 96.6 F 03/19/19 07:00 Pulse 62 03/19/19 07:00 Resp 18 03/19/19 07:00 BP 134/70 03/19/19 07:00 Pulse Ox 95 03/19/19 07:00 Weight - Most Recent: 120 kg I&O - Last 24 Hours: Intake & Output 03/18/19 03/19/19 03/19/19 22:59 06:59 14:59 Intake Total 600 960 Output Total 800 575 Balance -200 385 Lab Results Last 24 Hours: Laboratory Results - last 24 hr 03/19/19 03/19/19 Range/Units 05:30 05:30 WBC 2.75 L (4.0-11.0) K/uL RBC 3.64 L (4.50-5.90) M/uL Hgb 11.0 L (13.0-17.0) g/dL Hct 32.9 L (38.0-50.0) % MCV 90.4 (80.0-98.0) fL MCH 30.2 (27.0-32.0) pg MCHC 33.4 (31.0-37.0) g/dL RDW Std Deviation 45.4 (28.0-62.0) fl RDW Coeff of Kornad 14 (11.0-15.0) % Plt Count 113 L (150-400) K/uL MPV 10.70 (7.40-12.00) fL Neut % (Auto) 50.5 (48.0-80.0) % Lymph % (Auto) 25.5 (16.0-40.0) % Crawford % (Auto) 19.6 H (0.0-15.0) % Eos % (Auto) 4.0 (0.0-7.0) % Baso % (Auto) 0.4 (0.0-1.5) % Neut # (Auto) 1.4 (1.4-5.7) K/uL Lymph # (Auto) 0.7 (0.6-2.4) K/uL Crawford # (Auto) 0.5 (0.0-0.8) K/uL Eos # (Auto) 0.1 (0.0-0.7) K/uL Baso # (Auto) 0.0 (0.0-0.1) K/uL Nucleated RBC % 0.0 /100WBC Nucleated RBCs # 0 K/uL Sodium 143 (136-148) mmol/L Potassium 3.9 (3.5-5.1) mmol/L Chloride 108 H (98-107) mmol/L Carbon Dioxide 24.6 (21.0-32.0) mmol/L BUN 26 H (7.0-18.0) mg/dL Creatinine 1.4 H (0.8-1.3) mg/dL Est Cr Clr Drug Dosing 55.45 mL/min Estimated GFR (MDRD) 49.8 ml/min Glucose 108 H (74-106) mg/dL Calcium 9.3 (8.5-10.1) mg/dL Med Orders - Current: Current Medications Acetaminophen (Tylenol) 650 mg PO Q4H PRN PRN Reason: Pain Aspirin (Halfprin) 81 mg PO DAILY [facility] Last Admin: 03/18/19 11:42 Dose: 81 mg Atorvastatin Calcium (Lipitor) 40 mg PO BEDTIME [facility] Last Admin: 03/18/19 21:20 Dose: 40 mg Bisacodyl (Dulcolax) 10 mg RECTAL DAILY PRN PRN Reason: Constipation Cyanocobalamin (Vitamin B12) 1,000 mcg PO DAILY [facility] Last Admin: 03/18/19 11:42 Dose: 1,000 mcg Docusate Sodium (Colace) 100 mg PO BID [facility] Last Admin: 03/18/19 21:20 Dose: 100 mg Dutasteride (Avodart) 0.5 mg PO DAILY [facility] Last Admin: 03/18/19 11:42 Dose: 0.5 mg Famotidine (Pepcid) 20 mg PO BID PRN PRN Reason: acid reflux Haloperidol Lactate (Haldol) 1 - 5 mg IM Q8H PRN PRN Reason: Agitation Heparin Sodium (Porcine) (Heparin Sodium) 5,000 units SUBCUT Q8H [facility] Last Admin: 03/19/19 05:24 Dose: 5,000 units Levothyroxine Sodium (Synthroid) 88 mcg PO ACBREAKFAST [facility] Last Admin: 03/19/19 07:08 Dose: 88 mcg Melatonin (Melatonin) 3 mg PO BEDTIME PRN PRN Reason: Insomnia Ondansetron HCl (Zofran) 4 mg IVPUSH Q4H PRN PRN Reason: Nausea Umeclidinium Brm/ (Vilanterol Tr 1 Puff) 0 each INH DAILY [facility] Last Admin: 03/18/19 11:54 Dose: 1 each Quetiapine Fumarate (Seroquel) 25 mg PO BEDTIME PRN PRN Reason: Agitation Last Admin: 03/18/19 22:11 Dose: 25 mg Sodium Chloride (Saline Flush) 10 ml FLUSH ASDIRECTED PRN PRN Reason: Keep Vein Open Sodium Chloride (Saline Flush) 2.5 ml FLUSH ASDIRECTED PRN PRN Reason: Keep Vein Open Tolterodine Tartrate (Detrol La 24 Hr) 4 mg PO DAILY [facility] Last Admin: 03/18/19 11:44 Dose: 4 mg Discontinued Medications Haloperidol (Haldol) 5 mg PO ONETIME ONE Stop: 03/18/19 18:16 Last Admin: 03/18/19 18:20 Dose: 5 mg - Exam General: Alert, No Acute Distress. No: Oriented (reports he doesn't want to answer questions, because he doesn't want know.) Lungs: Clear to Auscultation, Normal Respiratory Effort Cardiovascular: Regular Rate, Regular Rhythm GI/Abdominal Exam: Normal Bowel Sounds, Soft, Non-Tender Psy/Mental Status: Alert Sepsis Event Note - Evaluation Sepsis Screening Result: No Definite Risk - Focused Exam Vital Signs: Vital Signs Temp Pulse Resp BP Pulse Ox 03/19/19 07:00 96.6 F 62 18 134/70 95 03/18/19 23:51 97.6 F 76 20 137/73 95 Date Exam was Performed: 03/19/19 Time Exam was Performed: 09:05 - Problem List & Annotations (1) CVA (cerebral vascular accident) SNOMED Code(s): 029173156 Code(s): I63.9 - CEREBRAL INFARCTION, UNSPECIFIED Status: Acute Current Visit: Yes Qualifiers: Laterality of affected vessel: left (2) AMS (altered mental status) SNOMED Code(s): 154345219 Code(s): R41.82 - ALTERED MENTAL STATUS, UNSPECIFIED Status: Acute Current Visit: Yes (3) Physical deconditioning SNOMED Code(s): 29955120871771 Code(s): R53.81 - OTHER MALAISE Status: Acute Current Visit: Yes (4) Weakness SNOMED Code(s): 17194126 Code(s): R53.1 - WEAKNESS Status: Acute Current Visit: No (5) Chronic kidney disease, stage III (moderate) SNOMED Code(s): 784262081 Code(s): N18.3 - CHRONIC KIDNEY DISEASE, STAGE 3 (MODERATE) Status: Chronic Priority: High Current Visit: No (6) Dupuytren's contracture of both hands SNOMED Code(s): 691430455 Code(s): M72.0 - PALMAR FASCIAL FIBROMATOSIS [DUPUYTREN] Status: Chronic Priority: High Current Visit: No (7) History of TIA (transient ischemic attack) SNOMED Code(s): 318322857 Code(s): Z86.73 - PRSNL HX OF TIA (TIA), AND CEREB INFRC W/O RESID DEFICITS Status: Chronic Current Visit: No (8) Hypertension SNOMED Code(s): 59387905 Code(s): I10 - ESSENTIAL (PRIMARY) HYPERTENSION Status: Chronic Priority : High Current Visit: No Qualifiers: Hypertension type: essential hypertension Qualified Code(s): I10 - Essential (primary) hypertension (9) Hypothyroidism SNOMED Code(s): 55888009 Code(s): E03.9 - HYPOTHYROIDISM, UNSPECIFIED Status: Chronic Current Visit: No (10) Hx of prostatic malignancy SNOMED Code(s): 883119468 Code(s): Z85.46 - PERSONAL HISTORY OF MALIGNANT NEOPLASM OF PROSTATE Status : Chronic Current Visit: Yes - Problem List Review Problem List Initiated/Reviewed/Updated: Yes - My Orders Last 24 Hours: My Active Orders 03/18/19 09:00 Aspirin [Halfprin] 81 mg PO DAILY Cyanocobalamin (Vitamin B12) [Vitamin B12] 1,000 mcg PO DAILY Dutasteride [Avodart] 0.5 mg PO DAILY Patient's Own Medication [Ptom] 0 each INH DAILY Tolterodine [Detrol LA 24 Hr] 4 mg PO DAILY - Plan Plan:: This 74 year old male admitted increasing AMS, noted to have new subacute CVA on head CT 1. 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 continue ASA and statin. 2. COPD: Stable, continue home inhaler. 3. Prostate CA: Hx of Lupron injections, unsure of last dose. Incontinent at baseline. 4. Hypothyroidism: Stable, continue Levothyroxine 88 mcg. VTE prophylaxis: Heparin Dispo: 2-3 days pending improvement. Consider placement as family is unable to care for him at home and he lives alone.
[2019-03-19] MEDS: Dutasteride 0.5 MG Cap PO SCH (09:43)
[2019-03-19] MEDS: Cyanocobalamin (Vitamin B12) 500 MCG Tab PO SCH (09:45)
[2019-03-19] MEDS: Aspirin 81 MG Tab.EC PO SCH (09:45)
[2019-03-19] MEDS: Docusate Sodium 100 MG Cap PO SCH ×2 (09:46→20:53)
[2019-03-19] MEDS: Tolterodine 2 MG Cap.ER PO SCH (09:47)
[2019-03-19] MEDS: Umeclidinium Brm/Vilanterol Tr 1 PUFF INH SCH (11:58)
[2019-03-19] MEDS: atorvaSTATin 40 MG Tab PO SCH (20:53)
[2019-03-20] MEDS: Heparin Sodium 5,000 Units/ML Vial SUBCUT SCH ×3 (05:13→21:34)
[2019-03-20] MEDS: Levothyroxine 88 MCG Tab PO SCH (06:37)
[2019-03-20] MEDS: Umeclidinium Brm/Vilanterol Tr 1 PUFF INH SCH (09:09)
[2019-03-20] MEDS: Docusate Sodium 100 MG Cap PO SCH ×2 (09:19→21:31)
[2019-03-20] MEDS: Aspirin 81 MG Tab.EC PO SCH (09:19)
[2019-03-20] MEDS: Dutasteride 0.5 MG Cap PO SCH (09:19)
[2019-03-20] MEDS: Cyanocobalamin (Vitamin B12) 500 MCG Tab PO SCH (09:19)
[2019-03-20] MEDS: Tolterodine 2 MG Cap.ER PO SCH (09:20)
--- NOTE | 2019-03-20 11:26 | PCM.DCSUM1 ---
Discharge Summary - Hospital Course Diagnosis: Stroke: No - Discharge Data Discharge Date: 03/20/19 Discharge Disposition: DC/Tfer to SNF 03 Condition: Stable - Referral to Home Health Primary Care Physician: Thomas Phoenix MD - Discharge Diagnosis/Problem(s) (1) CVA (cerebral vascular accident) SNOMED Code(s): 031399962 ICD Code: I63.9 - CEREBRAL INFARCTION, UNSPECIFIED Status: Acute Current Visit: Yes Qualifiers: Laterality of affected vessel: left (2) AMS (altered mental status) SNOMED Code(s): 178382094 ICD Code: R41.82 - ALTERED MENTAL STATUS, UNSPECIFIED Status: Acute Current Visit: Yes (3) Physical deconditioning SNOMED Code(s): 14240403547702 ICD Code: R53.81 - OTHER MALAISE Status: Acute Current Visit: Yes (4) Weakness SNOMED Code(s): 54262483 ICD Code: R53.1 - WEAKNESS Status: Acute Current Visit: No (5) Chronic kidney disease, stage III (moderate) SNOMED Code(s): 325195606 ICD Code: N18.3 - CHRONIC KIDNEY DISEASE, STAGE 3 (MODERATE) Status: Chronic Priority: High Current Visit: No (6) Dupuytren's contracture of both hands SNOMED Code(s): 912467088 ICD Code: M72.0 - PALMAR FASCIAL FIBROMATOSIS [DUPUYTREN] Status: Chronic Priority: High Current Visit: No (7) History of TIA (transient ischemic attack) SNOMED Code(s): 773380619 ICD Code: Z86.73 - PRSNL HX OF TIA (TIA), AND CEREB INFRC W/O RESID DEFICITS Status: Chronic Current Visit: No (8) Hypertension SNOMED Code(s): 89481111 ICD Code: I10 - ESSENTIAL (PRIMARY) HYPERTENSION Status: Chronic Priority : High Current Visit: No Qualifiers: Hypertension type: essential hypertension Qualified Code(s): I10 - Essential (primary) hypertension (9) Hypothyroidism SNOMED Code(s): 12372416 ICD Code: E03.9 - HYPOTHYROIDISM, UNSPECIFIED Status: Chronic Current Visit: No (10) Hx of prostatic malignancy SNOMED Code(s): 019266181 ICD Code: Z85.46 - PERSONAL HISTORY OF MALIGNANT NEOPLASM OF PROSTATE Status: Chronic Current Visit: Yes - Patient Summary/Data Consults: Consultations 03/17/19 12:43 Consult to Occupational Therapy [OT Evaluation and Treatment] [CONS] Routine PT Evaluation and Treatment [CONS] Routine - Patient Instructions Diet: Heart Healthy Diet Activity: As Tolerated Driving: Do Not Drive Showering/Bathing: May Shower Notify Provider of: Fever, Increased Pain, Swelling and Redness, Drainage, Nausea and/or Vomiting Other/Special Instructions: PT/OT/ST to evaluate and treat - Discharge Plan *PRESCRIPTION DRUG MONITORING PROGRAM REVIEWED*: Not Applicable *COPY OF PRESCRIPTION DRUG MONITORING REPORT IN PATIENT JENNIFER: Not Applicable Prescriptions/Med Rec: Acetaminophen [Tylenol] 650 mg PO Q4H PRN #30 tablet PRN Reason: Pain atorvaSTATin [Lipitor] 40 mg PO BEDTIME #30 tablet bisacodyL [Dulcolax] 10 mg RECTAL Q3D PRN #3 supp PRN Reason: Constipation Docusate Sodium [Colace] 100 mg PO BID #30 cap Home Medications: Home Meds Aspirin [Dare Aspirin EC] 81 mg PO DAILY 08/02/16 [History] Cyanocobalamin (Vitamin B-12) [B-12] 1,000 mcg PO DAILY 08/02/16 [History] Dutasteride [Avodart] 0.5 mg PO DAILY 08/02/16 [History] Tolterodine Tartrate [Tolterodine Tartrate ER] 4 mg PO DAILY 11/21/16 [History] Umeclidinium Brm/Vilanterol Tr [Anoro Ellipta 62.5-25 MCG] 1 puff INH DAILY [History] Famotidine 20 mg PO BID PRN 01/15/19 [History] Levothyroxine [Synthroid] 88 mcg PO ACBREAKFAST 03/17/19 [History] Acetaminophen [Tylenol] 650 mg PO Q4H PRN #30 tablet 03/20/19 [Rx] Docusate Sodium [Colace] 100 mg PO BID #30 cap 03/20/19 [Rx] atorvaSTATin [Lipitor] 40 mg PO BEDTIME #30 tablet 03/20/19 [Rx] bisacodyL [Dulcolax] 10 mg RECTAL Q3D PRN #3 supp 03/20/19 [Rx] Oxygen Therapy Mode: Room Air Patient Handouts: Confusion, Acetaminophen tablets or caplets, Atorvastatin tablets, Docusate capsules Referrals: Torrey Falcon MD [Physician] - 03/26/19 (follow on next [place] rounds) - Patient Data Vitals - Most Recent: Last Vital Signs Temp 97.2 F 03/20/19 08:00 Pulse 70 03/20/19 08:00 Resp 18 03/20/19 08:00 BP 149/78 H 03/20/19 08:00 Pulse Ox 94 L 03/20/19 08:00 Weight - Most Recent: 120 kg I&O - Last 24 hours: Intake & Output 03/19/19 03/20/19 03/20/19 22:59 06:59 14:59 Intake Total 750 460 Output Total 250 250 Balance 500 210 Med Orders - Current: Current Medications Acetaminophen (Tylenol) 650 mg PO Q4H PRN PRN Reason: Pain Aspirin (Halfprin) 81 mg PO DAILY [facility] Last Admin: 03/20/19 09:19 Dose: 81 mg Atorvastatin Calcium (Lipitor) 40 mg PO BEDTIME [facility] Last Admin: 03/19/19 20:53 Dose: 40 mg Bisacodyl (Dulcolax) 10 mg RECTAL DAILY PRN PRN Reason: Constipation Cyanocobalamin (Vitamin B12) 1,000 mcg PO DAILY [facility] Last Admin: 03/20/19 09:19 Dose: 1,000 mcg Docusate Sodium (Colace) 100 mg PO BID [facility] Last Admin: 03/20/19 09:19 Dose: 100 mg Dutasteride (Avodart) 0.5 mg PO DAILY [facility] Last Admin: 03/20/19 09:19 Dose: 0.5 mg Famotidine (Pepcid) 20 mg PO BID PRN PRN Reason: acid reflux Haloperidol Lactate (Haldol) 1 - 5 mg IM Q8H PRN PRN Reason: Agitation Heparin Sodium (Porcine) (Heparin Sodium) 5,000 units SUBCUT Q8H [facility] Last Admin: 03/20/19 05:13 Dose: 5,000 units Levothyroxine Sodium (Synthroid) 88 mcg PO ACBREAKFAST [facility] Last Admin: 03/20/19 06:37 Dose: 88 mcg Melatonin (Melatonin) 3 mg PO BEDTIME PRN PRN Reason: Insomnia Ondansetron HCl (Zofran) 4 mg IVPUSH Q4H PRN PRN Reason: Nausea Umeclidinium Brm/ (Vilanterol Tr 1 Puff) 0 each INH DAILY [facility] Last Admin: 03/20/19 09:09 Dose: 1 each Quetiapine Fumarate (Seroquel) 25 mg PO BEDTIME PRN PRN Reason: Agitation Last Admin: 03/18/19 22:11 Dose: 25 mg Sodium Chloride (Saline Flush) 10 ml FLUSH ASDIRECTED PRN PRN Reason: Keep Vein Open Sodium Chloride (Saline Flush) 2.5 ml FLUSH ASDIRECTED PRN PRN Reason: Keep Vein Open Tolterodine Tartrate (Detrol La 24 Hr) 4 mg PO DAILY [facility] Last Admin: 03/20/19 09:20 Dose: 4 mg Discontinued Medications Haloperidol (Haldol) 5 mg PO ONETIME ONE Stop: 03/18/19 18:16 Last Admin: 03/18/19 18:20 Dose: 5 mg
--- NOTE | 2019-03-20 13:22 | PCM.PN ---
- General Info Date of Service: 03/20/19 Admission Dx/Problem (Free Text): Admission Diagnosis/Problem Admission Diagnosis/Problem CVA, Cerebrovascular accident, AMS Subjective Update: Doing well today, alert and oriented, cooperative. Joking in his usual fashion. No chest pain or SOB. No concerns. Functional Status: Reports: Pain Controlled - Review of Systems HEENT: Reports: No Symptoms Pulmonary: Reports: No Symptoms. Denies: Shortness of Breath Cardiovascular: Reports: No Symptoms. Denies: Chest Pain Gastrointestinal: Reports: No Symptoms. Denies: Abdominal Pain, Nausea, Vomiting Genitourinary: Reports: No Symptoms Musculoskeletal: Reports: No Symptoms Skin: Reports: No Symptoms Neurological: Reports: No Symptoms Psychiatric: Reports: No Symptoms - Patient Data Vitals - Most Recent: Last Vital Signs Temp 97.2 F 03/20/19 08:00 Pulse 70 03/20/19 08:00 Resp 18 03/20/19 08:00 BP 149/78 H 03/20/19 08:00 Pulse Ox 94 L 03/20/19 08:00 Weight - Most Recent: 120 kg I&O - Last 24 Hours: Intake & Output 03/19/19 03/20/19 03/20/19 22:59 06:59 14:59 Intake Total 750 460 Output Total 250 250 Balance 500 210 Med Orders - Current: Current Medications Acetaminophen (Tylenol) 650 mg PO Q4H PRN PRN Reason: Pain Aspirin (Halfprin) 81 mg PO DAILY [facility] Last Admin: 03/20/19 09:19 Dose: 81 mg Atorvastatin Calcium (Lipitor) 40 mg PO BEDTIME [facility] Last Admin: 03/19/19 20:53 Dose: 40 mg Bisacodyl (Dulcolax) 10 mg RECTAL DAILY PRN PRN Reason: Constipation Cyanocobalamin (Vitamin B12) 1,000 mcg PO DAILY [facility] Last Admin: 03/20/19 09:19 Dose: 1,000 mcg Docusate Sodium (Colace) 100 mg PO BID [facility] Last Admin: 03/20/19 09:19 Dose: 100 mg Dutasteride (Avodart) 0.5 mg PO DAILY [facility] Last Admin: 03/20/19 09:19 Dose: 0.5 mg Famotidine (Pepcid) 20 mg PO BID PRN PRN Reason: acid reflux Haloperidol Lactate (Haldol) 1 - 5 mg IM Q8H PRN PRN Reason: Agitation Heparin Sodium (Porcine) (Heparin Sodium) 5,000 units SUBCUT Q8H [facility] Last Admin: 03/20/19 11:59 Dose: Not Given Levothyroxine Sodium (Synthroid) 88 mcg PO ACBREAKFAST [facility] Last Admin: 03/20/19 06:37 Dose: 88 mcg Melatonin (Melatonin) 3 mg PO BEDTIME PRN PRN Reason: Insomnia Ondansetron HCl (Zofran) 4 mg IVPUSH Q4H PRN PRN Reason: Nausea Umeclidinium Brm/ (Vilanterol Tr 1 Puff) 0 each INH DAILY [facility] Last Admin: 03/20/19 09:09 Dose: 1 each Quetiapine Fumarate (Seroquel) 25 mg PO BEDTIME PRN PRN Reason: Agitation Last Admin: 03/18/19 22:11 Dose: 25 mg Sodium Chloride (Saline Flush) 10 ml FLUSH ASDIRECTED PRN PRN Reason: Keep Vein Open Sodium Chloride (Saline Flush) 2.5 ml FLUSH ASDIRECTED PRN PRN Reason: Keep Vein Open Tolterodine Tartrate (Detrol La 24 Hr) 4 mg PO DAILY [facility] Last Admin: 03/20/19 09:20 Dose: 4 mg Discontinued Medications Haloperidol (Haldol) 5 mg PO ONETIME ONE Stop: 03/18/19 18:16 Last Admin: 03/18/19 18:20 Dose: 5 mg - Exam General: Alert, Oriented, Cooperative, No Acute Distress Lungs: Clear to Auscultation, Normal Respiratory Effort Cardiovascular: Regular Rate, Regular Rhythm GI/Abdominal Exam: Normal Bowel Sounds, Soft, Non-Tender Neurological: No New Focal Deficit Psy/Mental Status: Alert, Normal Affect, Normal Mood Sepsis Event Note - Evaluation Sepsis Screening Result: No Definite Risk - Focused Exam Vital Signs: Vital Signs Temp Pulse Resp BP Pulse Ox 03/20/19 08:00 97.2 F 70 18 149/78 H 94 L 03/20/19 04:00 97.0 F 76 18 149/99 H 96 Date Exam was Performed: 03/20/19 Time Exam was Performed: 13:15 - Problem List & Annotations (1) CVA (cerebral vascular accident) SNOMED Code(s): 772230664 Code(s): I63.9 - CEREBRAL INFARCTION, UNSPECIFIED Status: Acute Current Visit: Yes Qualifiers: Laterality of affected vessel: left (2) AMS (altered mental status) SNOMED Code(s): 217435307 Code(s): R41.82 - ALTERED MENTAL STATUS, UNSPECIFIED Status: Acute Current Visit: Yes (3) Physical deconditioning SNOMED Code(s): 93427187400658 Code(s): R53.81 - OTHER MALAISE Status: Acute Current Visit: Yes (4) Weakness SNOMED Code(s): 00116960 Code(s): R53.1 - WEAKNESS Status: Acute Current Visit: No (5) Chronic kidney disease, stage III (moderate) SNOMED Code(s): 599850861 Code(s): N18.3 - CHRONIC KIDNEY DISEASE, STAGE 3 (MODERATE) Status: Chronic Priority: High Current Visit: No (6) Dupuytren's contracture of both hands SNOMED Code(s): 064402599 Code(s): M72.0 - PALMAR FASCIAL FIBROMATOSIS [DUPUYTREN] Status: Chronic Priority: High Current Visit: No (7) History of TIA (transient ischemic attack) SNOMED Code(s): 733826673 Code(s): Z86.73 - PRSNL HX OF TIA (TIA), AND CEREB INFRC W/O RESID DEFICITS Status: Chronic Current Visit: No (8) Hypertension SNOMED Code(s): 82315149 Code(s): I10 - ESSENTIAL (PRIMARY) HYPERTENSION Status: Chronic Priority : High Current Visit: No Qualifiers: Hypertension type: essential hypertension Qualified Code(s): I10 - Essential (primary) hypertension (9) Hypothyroidism SNOMED Code(s): 51508331 Code(s): E03.9 - HYPOTHYROIDISM, UNSPECIFIED Status: Chronic Current Visit: No (10) Hx of prostatic malignancy SNOMED Code(s): 630961622 Code(s): Z85.46 - PERSONAL HISTORY OF MALIGNANT NEOPLASM OF PROSTATE Status : Chronic Current Visit: Yes - Problem List Review Problem List Initiated/Reviewed/Updated: Yes - My Orders Last 24 Hours: My Active Orders 03/20/19 11:26 Ready for Discharge [RC] PER UNIT ROUTINE - Plan Plan:: This 74 year old male admitted increasing AMS, noted to have new subacute CVA on head CT 1. 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 continue ASA and statin. 2. COPD: Stable, continue home inhaler. 3. Prostate CA: Hx of Lupron injections, unsure of last dose. Incontinent at baseline. 4. Hypothyroidism: Stable, continue Levothyroxine 88 mcg. VTE prophylaxis: Heparin Dispo: 2-3 days pending improvement. Consider placement as family is unable to care for him at home and he lives alone. [place] transfer to [place], publications sales representative from [email or web address] wants to come speak with patient. Did speak with Dr Falcon who would accept patient upon transfer.
[2019-03-20] MEDS: Melatonin 3 MG Tab PO PRN (21:28)
[2019-03-20] MEDS: atorvaSTATin 40 MG Tab PO SCH (21:31)
[2019-03-21] MEDS: Heparin Sodium 5,000 Units/ML Vial SUBCUT SCH ×3 (05:26→21:32)
[2019-03-21] MEDS: Levothyroxine 88 MCG Tab PO SCH (08:14)
[2019-03-21] MEDS: Cyanocobalamin (Vitamin B12) 500 MCG Tab PO SCH (08:15)
[2019-03-21] MEDS: Docusate Sodium 100 MG Cap PO SCH ×2 (08:15→21:32)
[2019-03-21] MEDS: Aspirin 81 MG Tab.EC PO SCH (08:15)
[2019-03-21] MEDS: Tolterodine 2 MG Cap.ER PO SCH (08:15)
[2019-03-21] MEDS: Dutasteride 0.5 MG Cap PO SCH (08:15)
--- NOTE | 2019-03-21 17:59 | PCM.PN ---
<Ariane Olivia - Last Filed: 03/21/19 17:56> - General Info Date of Service: 03/21/19 Subjective Update: Pleasant; not aggressive and joking appropriately. Still mildly confused and convinced his money is missing ; but not aggressive Functional Status: Reports: Pain Controlled - Review of Systems General: Reports: No Symptoms HEENT: Reports: No Symptoms Pulmonary: Reports: No Symptoms Cardiovascular: Reports: No Symptoms Gastrointestinal: Reports: No Symptoms Genitourinary: Reports: No Symptoms Neurological: Reports: Confusion. Denies: Headache Psychiatric: Denies: Anxiety, Agitation, Hallucinations - Patient Data Vitals - Most Recent: Last Vital Signs Temp 98.2 F 03/21/19 15:57 Pulse 86 03/21/19 15:57 Resp 20 03/21/19 15:57 BP 140/82 03/21/19 15:57 Pulse Ox 97 03/21/19 15:57 Weight - Most Recent: 120 kg I&O - Last 24 Hours: Intake & Output 03/21/19 03/21/19 03/21/19 06:59 14:59 22:59 Intake Total 600 1000 Output Total 100 150 Balance 500 850 Med Orders - Current: Current Medications Acetaminophen (Tylenol) 650 mg PO Q4H PRN PRN Reason: Pain Aspirin (Halfprin) 81 mg PO DAILY [facility] Last Admin: 03/21/19 08:15 Dose: 81 mg Atorvastatin Calcium (Lipitor) 40 mg PO BEDTIME [facility] Last Admin: 03/20/19 21:31 Dose: 40 mg Bisacodyl (Dulcolax) 10 mg RECTAL DAILY PRN PRN Reason: Constipation Cyanocobalamin (Vitamin B12) 1,000 mcg PO DAILY [facility] Last Admin: 03/21/19 08:15 Dose: 1,000 mcg Docusate Sodium (Colace) 100 mg PO BID [facility] Last Admin: 03/21/19 08:15 Dose: 100 mg Dutasteride (Avodart) 0.5 mg PO DAILY [facility] Last Admin: 03/21/19 08:15 Dose: 0.5 mg Famotidine (Pepcid) 20 mg PO BID PRN PRN Reason: acid reflux Haloperidol Lactate (Haldol) 1 - 5 mg IM Q8H PRN PRN Reason: Agitation Heparin Sodium (Porcine) (Heparin Sodium) 5,000 units SUBCUT Q8H [facility] Last Admin: 03/21/19 16:50 Dose: Not Given Levothyroxine Sodium (Synthroid) 88 mcg PO ACBREAKFAST [facility] Last Admin: 03/21/19 08:14 Dose: 88 mcg Melatonin (Melatonin) 3 mg PO BEDTIME PRN PRN Reason: Insomnia Last Admin: 03/20/19 21:28 Dose: 3 mg Ondansetron HCl (Zofran) 4 mg IVPUSH Q4H PRN PRN Reason: Nausea Umeclidinium Brm/ (Vilanterol Tr 1 Puff) 0 each INH DAILY [facility] Last Admin: 03/20/19 09:09 Dose: 1 each Quetiapine Fumarate (Seroquel) 25 mg PO BEDTIME PRN PRN Reason: Agitation Last Admin: 03/20/19 21:27 Dose: 25 mg Sodium Chloride (Saline Flush) 10 ml FLUSH ASDIRECTED PRN PRN Reason: Keep Vein Open Sodium Chloride (Saline Flush) 2.5 ml FLUSH ASDIRECTED PRN PRN Reason: Keep Vein Open Tolterodine Tartrate (Detrol La 24 Hr) 4 mg PO DAILY [facility] Last Admin: 03/21/19 08:15 Dose: 4 mg Discontinued Medications Haloperidol (Haldol) 5 mg PO ONETIME ONE Stop: 03/18/19 18:16 Last Admin: 03/18/19 18:20 Dose: 5 mg - Exam General: Alert, Oriented HEENT: EOMI, Mucous Membr. Moist/[place] Lungs: Clear to Auscultation, Normal Respiratory Effort Cardiovascular: Regular Rate, Regular Rhythm GI/Abdominal Exam: Soft, Non-Tender Psy/Mental Status: Alert, Normal Affect, Normal Mood, Other Sepsis Event Note - Evaluation Sepsis Screening Result: No Definite Risk - Focused Exam Vital Signs: Vital Signs Temp Pulse Resp BP Pulse Ox 03/21/19 15:57 98.2 F 86 20 140/82 97 03/21/19 12:00 97.4 F 84 18 132/79 94 L 03/21/19 08:17 97.4 F 71 20 138/74 96 Date Exam was Performed: 03/21/19 Time Exam was Performed: 17:56 - Problem List Review Problem List Initiated/Reviewed/Updated: Yes - My Orders Last 24 Hours: My Active Orders 03/21/19 17:51 CBC WITH AUTO DIFF [HEME] Urgent 03/22/19 05:11 CBC WITH AUTO DIFF [HEME] AM - Plan Plan:: This 74 year old male admitted increasing AMS, noted to have new subacute CVA on head CT 1. 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 continue ASA and statin. 2. COPD: Stable, continue home inhaler. 3. Prostate CA: Hx of Lupron injections, unsure of last dose. Incontinent at baseline. 4. Hypothyroidism: Stable, continue Levothyroxine 88 mcg. VTE prophylaxis: Heparin Dispo: 2-3 days pending improvement. Consider placement as family is unable to care for him at home and he lives alone: will await assessment from MD in [facility] . <Constantine Lucas - Last Filed: 03/30/19 20:40> - Patient Data Vitals - Most Recent: Last Vital Signs Temp 37.5 C 03/26/19 19:05 Pulse 95 03/26/19 19:05 Resp 17 03/26/19 19:05 BP 137/60 03/26/19 19:05 Pulse Ox 96 03/26/19 19:05 Med Orders - Current: Current Medications Discontinued Medications Acetaminophen (Tylenol) 650 mg PO Q4H PRN PRN Reason: Pain Aspirin (Halfprin) 81 mg PO DAILY [facility] Last Admin: 03/26/19 09:04 Dose: 81 mg Atorvastatin Calcium (Lipitor) 40 mg PO BEDTIME [facility] Last Admin: 03/25/19 21:37 Dose: 40 mg Bisacodyl (Dulcolax) 10 mg RECTAL DAILY PRN PRN Reason: Constipation Cyanocobalamin (Vitamin B12) 1,000 mcg PO DAILY [facility] Last Admin: 03/26/19 09:04 Dose: 1,000 mcg Divalproex Sodium (Divalproex Sodium) 250 mg PO BIDMEALS [facility] Last Admin: 03/26/19 16:30 Dose: 250 mg Docusate Sodium (Colace) 100 mg PO BID [facility] Last Admin: 03/26/19 09:04 Dose: 100 mg Dutasteride (Avodart) 0.5 mg PO DAILY [facility] Last Admin: 03/26/19 09:03 Dose: 0.5 mg Famotidine (Pepcid) 20 mg PO BID PRN PRN Reason: acid reflux Last Admin: 03/25/19 16:50 Dose: 20 mg Haloperidol (Haldol) 5 mg PO ONETIME ONE Stop: 03/18/19 18:16 Last Admin: 03/18/19 18:20 Dose: 5 mg Haloperidol Lactate (Haldol) 1 - 5 mg IM Q8H PRN PRN Reason: Agitation Heparin Sodium (Porcine) (Heparin Sodium) 5,000 units SUBCUT Q8H [facility] Last Admin: 03/26/19 13:33 Dose: Not Given Levothyroxine Sodium (Synthroid) 88 mcg PO ACBREAKFAST [facility] Last Admin: 03/26/19 06:44 Dose: 88 mcg Melatonin (Melatonin) 3 mg PO BEDTIME PRN PRN Reason: Insomnia Last Admin: 03/25/19 21:52 Dose: 3 mg Ondansetron HCl (Zofran) 4 mg IVPUSH Q4H PRN PRN Reason: Nausea Umeclidinium Brm/ (Vilanterol Tr 1 Puff) 0 each INH DAILY [facility] Last Admin: 03/26/19 09:55 Dose: 1 each Quetiapine Fumarate (Seroquel) 25 mg PO BEDTIME PRN PRN Reason: Agitation Last Admin: 03/25/19 21:52 Dose: 25 mg Sodium Chloride (Saline Flush) 10 ml FLUSH ASDIRECTED PRN PRN Reason: Keep Vein Open Sodium Chloride (Saline Flush) 2.5 ml FLUSH ASDIRECTED PRN PRN Reason: Keep Vein Open Tolterodine Tartrate (Detrol La 24 Hr) 4 mg PO DAILY [facility] Last Admin: 03/26/19 09:03 Dose: 4 mg - Problem List & Annotations (1) AMS (altered mental status) SNOMED Code(s): 262806328 Code(s): R41.82 - ALTERED MENTAL STATUS, UNSPECIFIED Status: Acute (2) CVA (cerebral vascular accident) SNOMED Code(s): 701047082 Code(s): I63.9 - CEREBRAL INFARCTION, UNSPECIFIED Status: Acute Qualifiers: Laterality of affected vessel: left - Plan Plan:: I have seen and evaluated the patient and agree with the residents note unless specified in my note
[2019-03-21] MEDS: atorvaSTATin 40 MG Tab PO SCH (21:32)
[2019-03-21] MEDS: Melatonin 3 MG Tab PO PRN (22:05)
[2019-03-22] MEDS: Heparin Sodium 5,000 Units/ML Vial SUBCUT SCH ×3 (04:05→20:20)
[2019-03-22] MEDS: Levothyroxine 88 MCG Tab PO SCH (06:29)
[2019-03-22] MEDS: Dutasteride 0.5 MG Cap PO SCH (08:25)
[2019-03-22] MEDS: Docusate Sodium 100 MG Cap PO SCH ×2 (08:25→20:21)
[2019-03-22] MEDS: Aspirin 81 MG Tab.EC PO SCH (08:25)
[2019-03-22] MEDS: Cyanocobalamin (Vitamin B12) 500 MCG Tab PO SCH (08:25)
[2019-03-22] MEDS: Tolterodine 2 MG Cap.ER PO SCH (08:27)
[2019-03-22] MEDS: Umeclidinium Brm/Vilanterol Tr 1 PUFF INH SCH ×2 (08:27→09:14)
--- NOTE | 2019-03-22 12:57 | PCM.PN ---
- General Info Date of Service: 03/22/19 Admission Dx/Problem (Free Text): Admission Diagnosis/Problem Admission Diagnosis/Problem CVA, Cerebrovascular accident, AMS Subjective Update: no acute complains, seems to be back to his baseline - Review of Systems General: Denies: Fever, Weakness, Fatigue Pulmonary: Denies: Shortness of Breath, Pleuritic Chest Pain Cardiovascular: Denies: Chest Pain, Palpitations, Dyspnea on Exertion Gastrointestinal: Denies: Abdominal Pain, Constipation, Decreased Appetite Genitourinary: Denies: Dysuria, Frequency, Burning Musculoskeletal: Denies: Neck Pain, Shoulder Pain, Arm Pain Skin: Denies: Cyanosis, Jaundice, Mottled - Patient Data Vitals - Most Recent: Last Vital Signs Temp 36.4 C 03/22/19 08:00 Pulse 60 03/22/19 08:00 Resp 18 03/22/19 08:00 BP 147/89 H 03/22/19 08:00 Pulse Ox 94 L 03/22/19 08:00 Weight - Most Recent: 120 kg I&O - Last 24 Hours: Intake & Output 03/21/19 03/22/19 03/22/19 22:59 06:59 14:59 Intake Total 1000 1000 Output Total 150 Balance 850 1000 Lab Results Last 24 Hours: Laboratory Results - last 24 hr 03/21/19 03/22/19 Range/Units 17:51 05:50 WBC 4.43 2.64 L (4.0-11.0) K/uL RBC 4.00 L 3.52 L (4.50-5.90) M/uL Hgb 12.2 L 10.7 L (13.0-17.0) g/dL Hct 36.8 L 32.0 L (38.0-50.0) % MCV 92.0 90.9 (80.0-98.0) fL MCH 30.5 30.4 (27.0-32.0) pg MCHC 33.2 33.4 (31.0-37.0) g/dL RDW Std Deviation 47.3 45.7 (28.0-62.0) fl RDW Coeff of Konrad 14 14 (11.0-15.0) % Plt Count 159 122 L (150-400) K/uL MPV 10.90 11.20 (7.40-12.00) fL Neut % (Auto) 61.5 53.4 (48.0-80.0) % Lymph % (Auto) 23.7 26.5 (16.0-40.0) % [place] % (Auto) 11.7 14.8 (0.0-15.0) % Eos % (Auto) 2.9 4.9 (0.0-7.0) % Baso % (Auto) 0.2 0.4 (0.0-1.5) % Neut # (Auto) 2.7 1.4 (1.4-5.7) K/uL Lymph # (Auto) 1.1 0.7 (0.6-2.4) K/uL [place] # (Auto) 0.5 0.4 (0.0-0.8) K/uL Eos # (Auto) 0.1 0.1 (0.0-0.7) K/uL Baso # (Auto) 0.0 0.0 (0.0-0.1) K/uL Nucleated RBC % 0.0 0.0 /100WBC Nucleated RBCs # 0 0 K/uL Med Orders - Current: Current Medications Acetaminophen (Tylenol) 650 mg PO Q4H PRN PRN Reason: Pain Aspirin (Halfprin) 81 mg PO DAILY [facility] Last Admin: 03/22/19 08:25 Dose: 81 mg Atorvastatin Calcium (Lipitor) 40 mg PO BEDTIME [facility] Last Admin: 03/21/19 21:32 Dose: 40 mg Bisacodyl (Dulcolax) 10 mg RECTAL DAILY PRN PRN Reason: Constipation Cyanocobalamin (Vitamin B12) 1,000 mcg PO DAILY [facility] Last Admin: 03/22/19 08:25 Dose: 1,000 mcg Docusate Sodium (Colace) 100 mg PO BID [facility] Last Admin: 03/22/19 08:25 Dose: 100 mg Dutasteride (Avodart) 0.5 mg PO DAILY [facility] Last Admin: 03/22/19 08:25 Dose: 0.5 mg Famotidine (Pepcid) 20 mg PO BID PRN PRN Reason: acid reflux Haloperidol Lactate (Haldol) 1 - 5 mg IM Q8H PRN PRN Reason: Agitation Heparin Sodium (Porcine) (Heparin Sodium) 5,000 units SUBCUT Q8H [facility] Last Admin: 03/22/19 12:13 Dose: 5,000 units Levothyroxine Sodium (Synthroid) 88 mcg PO ACBREAKFAST [facility] Last Admin: 03/22/19 06:29 Dose: 88 mcg Melatonin (Melatonin) 3 mg PO BEDTIME PRN PRN Reason: Insomnia Last Admin: 03/21/19 22:05 Dose: 3 mg Ondansetron HCl (Zofran) 4 mg IVPUSH Q4H PRN PRN Reason: Nausea Umeclidinium Brm/ (Vilanterol Tr 1 Puff) 0 each INH DAILY [facility] Last Admin: 03/22/19 09:14 Dose: 1 each Quetiapine Fumarate (Seroquel) 25 mg PO BEDTIME PRN PRN Reason: Agitation Last Admin: 03/21/19 22:06 Dose: 25 mg Sodium Chloride (Saline Flush) 10 ml FLUSH ASDIRECTED PRN PRN Reason: Keep Vein Open Sodium Chloride (Saline Flush) 2.5 ml FLUSH ASDIRECTED PRN PRN Reason: Keep Vein Open Tolterodine Tartrate (Detrol La 24 Hr) 4 mg PO DAILY [facility] Last Admin: 03/22/19 08:27 Dose: 4 mg Discontinued Medications Haloperidol (Haldol) 5 mg PO ONETIME ONE Stop: 03/18/19 18:16 Last Admin: 03/18/19 18:20 Dose: 5 mg - Exam General: Alert, Oriented Neck: Supple Lungs: Clear to Auscultation, Normal Respiratory Effort Cardiovascular: Regular Rate, Regular Rhythm GI/Abdominal Exam: Normal Bowel Sounds, Soft, Non-Tender Peripheral Pulses: 3+: Dorsalis Pedis (L), Dorsalis Pedis (R) Skin: Warm Psy/Mental Status: Alert, Normal Affect, Normal Mood. No: Labile Mood, Anxious , Depressed, Agitated, Suicidal Ideation, Hallucinations Sepsis Event Note - Evaluation Sepsis Screening Result: No Definite Risk - Focused Exam Vital Signs: Vital Signs Temp Pulse Resp BP Pulse Ox 03/22/19 08:00 36.4 C 60 18 147/89 H 94 L 03/22/19 03:01 36.3 C 64 16 128/64 96 Date Exam was Performed: 03/22/19 Time Exam was Performed: 12:53 - Problem List & Annotations (1) AMS (altered mental status) SNOMED Code(s): 102776307 Code(s): R41.82 - ALTERED MENTAL STATUS, UNSPECIFIED Status: Acute Current Visit: Yes (2) CVA (cerebral vascular accident) SNOMED Code(s): 228220123 Code(s): I63.9 - CEREBRAL INFARCTION, UNSPECIFIED Status: Acute Current Visit: Yes Qualifiers: Laterality of affected vessel: left - Problem List Review Problem List Initiated/Reviewed/Updated: Yes - Plan Plan:: This 74 year old male admitted increasing AMS, noted to have new subacute CVA on head CT Mental status has improved significantly, base to his baseline continue ASA and statin for stroke. continue Levothyroxine 88 mcg for hypothyroidism D/C pending disposition
[2019-03-22] MEDS: atorvaSTATin 40 MG Tab PO SCH (20:21)
[2019-03-22] MEDS: Melatonin 3 MG Tab PO PRN (23:17)
[2019-03-23] MEDS: Heparin Sodium 5,000 Units/ML Vial SUBCUT SCH ×3 (04:21→20:10)
[2019-03-23 06:17] LABS: CARBON DIOXIDE,CO2 24.5 mmol/L (21.0-32.0); POTASSIUM,K 4.1 mmol/L (3.5-5.1)
[2019-03-23] MEDS: Levothyroxine 88 MCG Tab PO SCH (06:33)
[2019-03-23] MEDS: Cyanocobalamin (Vitamin B12) 500 MCG Tab PO SCH (09:26)
[2019-03-23] MEDS: Docusate Sodium 100 MG Cap PO SCH ×2 (09:26→20:11)
[2019-03-23] MEDS: Aspirin 81 MG Tab.EC PO SCH (09:26)
[2019-03-23] MEDS: Dutasteride 0.5 MG Cap PO SCH (09:26)
[2019-03-23] MEDS: Tolterodine 2 MG Cap.ER PO SCH (09:28)
[2019-03-23] MEDS: Umeclidinium Brm/Vilanterol Tr 1 PUFF INH SCH (09:28)
--- NOTE | 2019-03-23 13:21 | PCM.PN ---
- General Info Date of Service: 03/23/19 Admission Dx/Problem (Free Text): Admission Diagnosis/Problem Admission Diagnosis/Problem CVA, Cerebrovascular accident, AMS Subjective Update: Alert and oriented this morning, no complaints of pain. Wants to speak with Sabino. No other concerns. getting up for breakfast. - Review of Systems General: Reports: No Symptoms. Denies: Weakness, Fatigue Pulmonary: Reports: No Symptoms. Denies: Shortness of Breath Cardiovascular: Reports: No Symptoms. Denies: Chest Pain Gastrointestinal: Reports: No Symptoms. Denies: Abdominal Pain, Nausea, Vomiting Neurological: Reports: No Symptoms Psychiatric: Reports: No Symptoms - Patient Data Vitals - Most Recent: Last Vital Signs Temp 98.6 F 03/23/19 12:00 Pulse 84 03/23/19 12:00 Resp 16 03/23/19 12:00 BP 137/80 03/23/19 12:00 Pulse Ox 97 03/23/19 12:00 Weight - Most Recent: 120 kg I&O - Last 24 Hours: Intake & Output 03/22/19 03/23/19 03/23/19 22:59 06:59 14:59 Intake Total 1500 900 Output Total 600 Balance 1500 300 Lab Results Last 24 Hours: Laboratory Results - last 24 hr 03/23/19 03/23/19 Range/Units 05:20 05:20 WBC 3.45 L (4.0-11.0) K/uL RBC 3.75 L (4.50-5.90) M/uL Hgb 11.4 L (13.0-17.0) g/dL Hct 34.1 L (38.0-50.0) % MCV 90.9 (80.0-98.0) fL MCH 30.4 (27.0-32.0) pg MCHC 33.4 (31.0-37.0) g/dL RDW Std Deviation 45.5 (28.0-62.0) fl RDW Coeff of Konrad 14 (11.0-15.0) % Plt Count 117 L (150-400) K/uL MPV 12.10 H (7.40-12.00) fL Neut % (Auto) 58.8 (48.0-80.0) % Lymph % (Auto) 23.8 (16.0-40.0) % [place] % (Auto) 13.3 (0.0-15.0) % Eos % (Auto) 3.8 (0.0-7.0) % Baso % (Auto) 0.3 (0.0-1.5) % Neut # (Auto) 2.0 (1.4-5.7) K/uL Lymph # (Auto) 0.8 (0.6-2.4) K/uL [place] # (Auto) 0.5 (0.0-0.8) K/uL Eos # (Auto) 0.1 (0.0-0.7) K/uL Baso # (Auto) 0.0 (0.0-0.1) K/uL Nucleated RBC % 0.0 /100WBC Nucleated RBCs # 0 K/uL Sodium 141 (136-148) mmol/L Potassium 4.1 (3.5-5.1) mmol/L Chloride 108 H (98-107) mmol/L Carbon Dioxide 24.5 (21.0-32.0) mmol/L BUN 32 H (7.0-18.0) mg/dL Creatinine 1.2 (0.8-1.3) mg/dL Est Cr Clr Drug Dosing 64.69 mL/min Estimated GFR (MDRD) 59.5 ml/min Glucose 108 H (74-106) mg/dL Calcium 9.8 (8.5-10.1) mg/dL Phosphorus 3.9 (2.6-4.7) mg/dL Magnesium 2.0 (1.8-2.4) mg/dL Med Orders - Current: Current Medications Acetaminophen (Tylenol) 650 mg PO Q4H PRN PRN Reason: Pain Aspirin (Halfprin) 81 mg PO DAILY [facility] Last Admin: 03/23/19 09:26 Dose: 81 mg Atorvastatin Calcium (Lipitor) 40 mg PO BEDTIME [facility] Last Admin: 03/22/19 20:21 Dose: 40 mg Bisacodyl (Dulcolax) 10 mg RECTAL DAILY PRN PRN Reason: Constipation Cyanocobalamin (Vitamin B12) 1,000 mcg PO DAILY [facility] Last Admin: 03/23/19 09:26 Dose: 1,000 mcg Docusate Sodium (Colace) 100 mg PO BID [facility] Last Admin: 03/23/19 09:26 Dose: 100 mg Dutasteride (Avodart) 0.5 mg PO DAILY [facility] Last Admin: 03/23/19 09:26 Dose: 0.5 mg Famotidine (Pepcid) 20 mg PO BID PRN PRN Reason: acid reflux Haloperidol Lactate (Haldol) 1 - 5 mg IM Q8H PRN PRN Reason: Agitation Heparin Sodium (Porcine) (Heparin Sodium) 5,000 units SUBCUT Q8H [facility] Last Admin: 03/23/19 04:21 Dose: 5,000 units Levothyroxine Sodium (Synthroid) 88 mcg PO ACBREAKFAST [facility] Last Admin: 03/23/19 06:33 Dose: 88 mcg Melatonin (Melatonin) 3 mg PO BEDTIME PRN PRN Reason: Insomnia Last Admin: 03/22/19 23:17 Dose: 3 mg Ondansetron HCl (Zofran) 4 mg IVPUSH Q4H PRN PRN Reason: Nausea Umeclidinium Brm/ (Vilanterol Tr 1 Puff) 0 each INH DAILY [facility] Last Admin: 03/23/19 09:28 Dose: 1 each Quetiapine Fumarate (Seroquel) 25 mg PO BEDTIME PRN PRN Reason: Agitation Last Admin: 03/22/19 23:17 Dose: 25 mg Sodium Chloride (Saline Flush) 10 ml FLUSH ASDIRECTED PRN PRN Reason: Keep Vein Open Sodium Chloride (Saline Flush) 2.5 ml FLUSH ASDIRECTED PRN PRN Reason: Keep Vein Open Tolterodine Tartrate (Detrol La 24 Hr) 4 mg PO DAILY [facility] Last Admin: 03/23/19 09:28 Dose: 4 mg Discontinued Medications Haloperidol (Haldol) 5 mg PO ONETIME ONE Stop: 03/18/19 18:16 Last Admin: 03/18/19 18:20 Dose: 5 mg - Exam General: Alert, Oriented, Cooperative, No Acute Distress Lungs: Clear to Auscultation, Normal Respiratory Effort Cardiovascular: Regular Rate, Regular Rhythm GI/Abdominal Exam: Normal Bowel Sounds, Soft, Non-Tender Extremities: Normal Inspection, Normal Range of Motion, Non-Tender, No Pedal Edema Neurological: No New Focal Deficit Psy/Mental Status: Alert, Normal Affect, Normal Mood Sepsis Event Note - Evaluation Sepsis Screening Result: No Definite Risk - Focused Exam Vital Signs: Vital Signs Temp Pulse Resp BP BP Pulse Ox 03/23/19 12:00 98.6 F 84 16 137/80 97 03/23/19 08:00 97.9 F 78 16 140/71 98 03/23/19 04:00 97.7 F 60 17 131/64 95 Date Exam was Performed: 03/23/19 Time Exam was Performed: 13:19 - Problem List & Annotations (1) CVA (cerebral vascular accident) SNOMED Code(s): 556398648 Code(s): I63.9 - CEREBRAL INFARCTION, UNSPECIFIED Status: Acute Current Visit: Yes Qualifiers: Laterality of affected vessel: left (2) AMS (altered mental status) SNOMED Code(s): 700165941 Code(s): R41.82 - ALTERED MENTAL STATUS, UNSPECIFIED Status: Acute Current Visit: Yes (3) Physical deconditioning SNOMED Code(s): 61586777590871 Code(s): R53.81 - OTHER MALAISE Status: Acute Current Visit: Yes (4) Weakness SNOMED Code(s): 84471831 Code(s): R53.1 - WEAKNESS Status: Acute Current Visit: No (5) Chronic kidney disease, stage III (moderate) SNOMED Code(s): 739538598 Code(s): N18.3 - CHRONIC KIDNEY DISEASE, STAGE 3 (MODERATE) Status: Chronic Priority: High Current Visit: No (6) Dupuytren's contracture of both hands SNOMED Code(s): 708613705 Code(s): M72.0 - PALMAR FASCIAL FIBROMATOSIS [DUPUYTREN] Status: Chronic Priority: High Current Visit: No (7) History of TIA (transient ischemic attack) SNOMED Code(s): 476978848 Code(s): Z86.73 - PRSNL HX OF TIA (TIA), AND CEREB INFRC W/O RESID DEFICITS Status: Chronic Current Visit: No (8) Hypertension SNOMED Code(s): 55927176 Code(s): I10 - ESSENTIAL (PRIMARY) HYPERTENSION Status: Chronic Priority : High Current Visit: No Qualifiers: Hypertension type: essential hypertension Qualified Code(s): I10 - Essential (primary) hypertension (9) Hypothyroidism SNOMED Code(s): 68961648 Code(s): E03.9 - HYPOTHYROIDISM, UNSPECIFIED Status: Chronic Current Visit: No (10) Hx of prostatic malignancy SNOMED Code(s): 539748827 Code(s): Z85.46 - PERSONAL HISTORY OF MALIGNANT NEOPLASM OF PROSTATE Status : Chronic Current Visit: Yes - Problem List Review Problem List Initiated/Reviewed/Updated: Yes - Plan Plan:: This 74 year old male admitted increasing AMS, noted to have new subacute CVA on head CT 1. CVA: Stable. 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 continue ASA and statin. 2. COPD: Stable, continue home inhaler. 3. Prostate CA: Hx of Lupron injections, unsure of last dose. Incontinent at baseline. 4. Hypothyroidism: Stable, continue Levothyroxine 88 mcg. VTE prophylaxis: Heparin Dispo: Pending placement.
[2019-03-23] MEDS: atorvaSTATin 40 MG Tab PO SCH (20:11)
[2019-03-24] MEDS: Heparin Sodium 5,000 Units/ML Vial SUBCUT SCH ×3 (05:24→20:12)
[2019-03-24] MEDS: Levothyroxine 88 MCG Tab PO SCH (06:38)
[2019-03-24] MEDS: Umeclidinium Brm/Vilanterol Tr 1 PUFF INH SCH (09:19)
--- NOTE | 2019-03-24 09:31 | PCM.PN ---
- General Info Date of Service: 03/24/19 Admission Dx/Problem (Free Text): Admission Diagnosis/Problem Admission Diagnosis/Problem CVA, Cerebrovascular accident, AMS Subjective Update: Alert and oriented this morning, no complaints of pain. No other concerns. getting up for breakfast. Functional Status: Reports: Pain Controlled, Tolerating Diet, Ambulating, Urinating - Review of Systems General: Reports: No Symptoms HEENT: Reports: No Symptoms. Denies: Headaches, Sore Throat Pulmonary: Reports: No Symptoms. Denies: Shortness of Breath Cardiovascular: Reports: No Symptoms. Denies: Chest Pain Gastrointestinal: Reports: No Symptoms. Denies: Abdominal Pain, Nausea, Vomiting Genitourinary: Reports: No Symptoms. Denies: Dysuria, Frequency Musculoskeletal: Reports: No Symptoms Skin: Reports: No Symptoms Neurological: Reports: No Symptoms Psychiatric: Reports: No Symptoms - Patient Data Vitals - Most Recent: Last Vital Signs Temp 97.1 F 03/24/19 04:00 Pulse 76 03/24/19 04:00 Resp 17 03/24/19 04:00 BP 155/84 H 03/24/19 04:00 Pulse Ox 98 03/24/19 04:00 Weight - Most Recent: 120 kg I&O - Last 24 Hours: Intake & Output 03/23/19 03/24/19 03/24/19 22:59 06:59 14:59 Intake Total 500 600 Output Total 500 Balance 500 100 Med Orders - Current: Current Medications Acetaminophen (Tylenol) 650 mg PO Q4H PRN PRN Reason: Pain Aspirin (Halfprin) 81 mg PO DAILY [facility] Last Admin: 03/23/19 09:26 Dose: 81 mg Atorvastatin Calcium (Lipitor) 40 mg PO BEDTIME [facility] Last Admin: 03/23/19 20:11 Dose: 40 mg Bisacodyl (Dulcolax) 10 mg RECTAL DAILY PRN PRN Reason: Constipation Cyanocobalamin (Vitamin B12) 1,000 mcg PO DAILY [facility] Last Admin: 03/23/19 09:26 Dose: 1,000 mcg Docusate Sodium (Colace) 100 mg PO BID [facility] Last Admin: 03/23/19 20:11 Dose: 100 mg Dutasteride (Avodart) 0.5 mg PO DAILY [facility] Last Admin: 03/23/19 09:26 Dose: 0.5 mg Famotidine (Pepcid) 20 mg PO BID PRN PRN Reason: acid reflux Haloperidol Lactate (Haldol) 1 - 5 mg IM Q8H PRN PRN Reason: Agitation Heparin Sodium (Porcine) (Heparin Sodium) 5,000 units SUBCUT Q8H [facility] Last Admin: 03/24/19 05:24 Dose: 5,000 units Levothyroxine Sodium (Synthroid) 88 mcg PO ACBREAKFAST [facility] Last Admin: 03/24/19 06:38 Dose: 88 mcg Melatonin (Melatonin) 3 mg PO BEDTIME PRN PRN Reason: Insomnia Last Admin: 03/22/19 23:17 Dose: 3 mg Ondansetron HCl (Zofran) 4 mg IVPUSH Q4H PRN PRN Reason: Nausea Umeclidinium Brm/ (Vilanterol Tr 1 Puff) 0 each INH DAILY [facility] Last Admin: 03/24/19 09:19 Dose: 1 each Quetiapine Fumarate (Seroquel) 25 mg PO BEDTIME PRN PRN Reason: Agitation Last Admin: 03/22/19 23:17 Dose: 25 mg Sodium Chloride (Saline Flush) 10 ml FLUSH ASDIRECTED PRN PRN Reason: Keep Vein Open Sodium Chloride (Saline Flush) 2.5 ml FLUSH ASDIRECTED PRN PRN Reason: Keep Vein Open Tolterodine Tartrate (Detrol La 24 Hr) 4 mg PO DAILY [facility] Last Admin: 03/23/19 09:28 Dose: 4 mg Discontinued Medications Haloperidol (Haldol) 5 mg PO ONETIME ONE Stop: 03/18/19 18:16 Last Admin: 03/18/19 18:20 Dose: 5 mg - Exam General: Alert. No: Oriented (disoriented to place, re-oreinted easily ) Neck: Supple Lungs: Clear to Auscultation, Normal Respiratory Effort Cardiovascular: Regular Rate, Regular Rhythm GI/Abdominal Exam: Normal Bowel Sounds, Soft, Non-Tender Extremities: Normal Inspection, Normal Range of Motion, Non-Tender Neurological: No New Focal Deficit Psy/Mental Status: Alert, Normal Affect, Normal Mood. No: Agitated Sepsis Event Note - Evaluation Sepsis Screening Result: No Definite Risk - Focused Exam Vital Signs: Vital Signs Temp Pulse Resp BP Pulse Ox 03/24/19 04:00 97.1 F 76 17 155/84 H 98 01/07/20 00:36 97.3 F 79 18 141/82 H 96 Date Exam was Performed: 03/24/19 Time Exam was Performed: 13:58 - Problem List & Annotations (1) CVA (cerebral vascular accident) SNOMED Code(s): 733641713 Code(s): I63.9 - CEREBRAL INFARCTION, UNSPECIFIED Status: Acute Current Visit: Yes Qualifiers: Laterality of affected vessel: left (2) AMS (altered mental status) SNOMED Code(s): 634731159 Code(s): R41.82 - ALTERED MENTAL STATUS, UNSPECIFIED Status: Acute Current Visit: Yes (3) Physical deconditioning SNOMED Code(s): 75589035596440 Code(s): R53.81 - OTHER MALAISE Status: Acute Current Visit: Yes (4) Weakness SNOMED Code(s): 47926094 Code(s): R53.1 - WEAKNESS Status: Acute Current Visit: No (5) Chronic kidney disease, stage III (moderate) SNOMED Code(s): 356971010 Code(s): N18.3 - CHRONIC KIDNEY DISEASE, STAGE 3 (MODERATE) Status: Chronic Priority: High Current Visit: No (6) Dupuytren's contracture of both hands SNOMED Code(s): 832687948 Code(s): M72.0 - PALMAR FASCIAL FIBROMATOSIS [DUPUYTREN] Status: Chronic Priority: High Current Visit: No (7) History of TIA (transient ischemic attack) SNOMED Code(s): 271360912 Code(s): Z86.73 - PRSNL HX OF TIA (TIA), AND CEREB INFRC W/O RESID DEFICITS Status: Chronic Current Visit: No (8) Hypertension SNOMED Code(s): 44591477 Code(s): I10 - ESSENTIAL (PRIMARY) HYPERTENSION Status: Chronic Priority : High Current Visit: No Qualifiers: Hypertension type: essential hypertension Qualified Code(s): I10 - Essential (primary) hypertension (9) Hypothyroidism SNOMED Code(s): 93317530 Code(s): E03.9 - HYPOTHYROIDISM, UNSPECIFIED Status: Chronic Current Visit: No (10) Hx of prostatic malignancy SNOMED Code(s): 619868681 Code(s): Z85.46 - PERSONAL HISTORY OF MALIGNANT NEOPLASM OF PROSTATE Status : Chronic Current Visit: Yes - Problem List Review Problem List Initiated/Reviewed/Updated: Yes - Plan Plan:: This 74 year old male admitted increasing AMS, noted to have new subacute CVA on head CT 1. CVA: Stable. 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 having intermittent confusion and behavior concerns. This morning became very agitated with nursing staff and called the police. May need psychiatric evaluation and initiation of medications in a controlled environment. continue ASA and statin. 2. COPD: Stable, continue home inhaler. 3. Prostate CA: Hx of Lupron injections, unsure of last dose. Incontinent at baseline. 4. Hypothyroidism: Stable, continue Levothyroxine 88 mcg. VTE prophylaxis: Heparin Dispo: Pending placement.
[2019-03-24] MEDS: Dutasteride 0.5 MG Cap PO SCH (10:22)
[2019-03-24] MEDS: Aspirin 81 MG Tab.EC PO SCH (10:23)
[2019-03-24] MEDS: Cyanocobalamin (Vitamin B12) 500 MCG Tab PO SCH (10:23)
[2019-03-24] MEDS: Docusate Sodium 100 MG Cap PO SCH ×2 (10:24→20:16)
[2019-03-24] MEDS: Tolterodine 2 MG Cap.ER PO SCH (10:24)
[2019-03-24] MEDS: atorvaSTATin 40 MG Tab PO SCH (20:15)
[2019-03-24] MEDS: Melatonin 3 MG Tab PO PRN (20:47)
[2019-03-25] MEDS: Heparin Sodium 5,000 Units/ML Vial SUBCUT SCH ×3 (03:57→21:36)
[2019-03-25] MEDS: Levothyroxine 88 MCG Tab PO SCH (06:30)
[2019-03-25] MEDS: Dutasteride 0.5 MG Cap PO SCH (09:10)
[2019-03-25] MEDS: Cyanocobalamin (Vitamin B12) 500 MCG Tab PO SCH (09:10)
[2019-03-25] MEDS: Aspirin 81 MG Tab.EC PO SCH (09:10)
[2019-03-25] MEDS: Tolterodine 2 MG Cap.ER PO SCH (09:11)
[2019-03-25] MEDS: Docusate Sodium 100 MG Cap PO SCH ×2 (09:12→21:37)
[2019-03-25] MEDS: Umeclidinium Brm/Vilanterol Tr 1 PUFF INH SCH (09:12)
--- NOTE | 2019-03-25 12:38 | PCM.PN ---
- General Info Date of Service: 03/25/19 Admission Dx/Problem (Free Text): Admission Diagnosis/Problem Admission Diagnosis/Problem CVA, Cerebrovascular accident, AMS Subjective Update: Doing well this morning, no complaints of pain. Functional Status: Reports: Pain Controlled, Tolerating Diet, Ambulating, Urinating - Review of Systems General: Reports: No Symptoms HEENT: Reports: No Symptoms Pulmonary: Reports: No Symptoms. Denies: Shortness of Breath Cardiovascular: Reports: No Symptoms. Denies: Chest Pain Gastrointestinal: Reports: No Symptoms. Denies: Abdominal Pain, Nausea, Vomiting Genitourinary: Reports: No Symptoms. Denies: Dysuria, Frequency, Burning Musculoskeletal: Reports: No Symptoms Skin: Reports: No Symptoms Neurological: Reports: No Symptoms Psychiatric: Reports: No Symptoms - Patient Data Vitals - Most Recent: Last Vital Signs Temp 97.5 F 03/25/19 12:00 Pulse 90 03/25/19 12:00 Resp 16 03/25/19 12:00 BP 134/77 03/25/19 07:43 Pulse Ox 95 03/25/19 12:00 Weight - Most Recent: 120 kg I&O - Last 24 Hours: Intake & Output 03/24/19 03/25/19 03/25/19 22:59 06:59 14:59 Intake Total 1240 590 Output Total 819 Balance 1240 -229 Lab Results Last 24 Hours: Laboratory Results - last 24 hr 03/23/19 Range/Units 05:20 Prostate Specific Ag < 0.05 L (0.05-4.00) ng/mL Testosterone Level 11 L (241-827) ng/dL Med Orders - Current: Current Medications Acetaminophen (Tylenol) 650 mg PO Q4H PRN PRN Reason: Pain Aspirin (Halfprin) 81 mg PO DAILY [facility] Last Admin: 03/25/19 09:10 Dose: 81 mg Atorvastatin Calcium (Lipitor) 40 mg PO BEDTIME [facility] Last Admin: 03/24/19 20:15 Dose: 40 mg Bisacodyl (Dulcolax) 10 mg RECTAL DAILY PRN PRN Reason: Constipation Cyanocobalamin (Vitamin B12) 1,000 mcg PO DAILY [facility] Last Admin: 03/25/19 09:10 Dose: 1,000 mcg Docusate Sodium (Colace) 100 mg PO BID [facility] Last Admin: 03/25/19 09:12 Dose: 100 mg Dutasteride (Avodart) 0.5 mg PO DAILY [facility] Last Admin: 03/25/19 09:10 Dose: 0.5 mg Famotidine (Pepcid) 20 mg PO BID PRN PRN Reason: acid reflux Haloperidol Lactate (Haldol) 1 - 5 mg IM Q8H PRN PRN Reason: Agitation Heparin Sodium (Porcine) (Heparin Sodium) 5,000 units SUBCUT Q8H [facility] Last Admin: 03/25/19 12:12 Dose: 5,000 units Levothyroxine Sodium (Synthroid) 88 mcg PO ACBREAKFAST [facility] Last Admin: 03/25/19 06:30 Dose: 88 mcg Melatonin (Melatonin) 3 mg PO BEDTIME PRN PRN Reason: Insomnia Last Admin: 03/24/19 20:47 Dose: 3 mg Ondansetron HCl (Zofran) 4 mg IVPUSH Q4H PRN PRN Reason: Nausea Umeclidinium Brm/ (Vilanterol Tr 1 Puff) 0 each INH DAILY [facility] Last Admin: 03/25/19 09:12 Dose: 1 each Quetiapine Fumarate (Seroquel) 25 mg PO BEDTIME PRN PRN Reason: Agitation Last Admin: 03/24/19 20:13 Dose: 25 mg Sodium Chloride (Saline Flush) 10 ml FLUSH ASDIRECTED PRN PRN Reason: Keep Vein Open Sodium Chloride (Saline Flush) 2.5 ml FLUSH ASDIRECTED PRN PRN Reason: Keep Vein Open Tolterodine Tartrate (Detrol La 24 Hr) 4 mg PO DAILY [facility] Last Admin: 03/25/19 09:11 Dose: 4 mg Discontinued Medications Haloperidol (Haldol) 5 mg PO ONETIME ONE Stop: 03/18/19 18:16 Last Admin: 03/18/19 18:20 Dose: 5 mg - Exam General: Alert, Cooperative, No Acute Distress. No: Oriented Lungs: Clear to Auscultation, Normal Respiratory Effort Cardiovascular: Regular Rate, Regular Rhythm GI/Abdominal Exam: Normal Bowel Sounds, Soft, Non-Tender Extremities: Normal Inspection, Normal Range of Motion, Non-Tender, No Pedal Edema Psy/Mental Status: Alert, Normal Affect, Normal Mood. No: Agitated Sepsis Event Note - Evaluation Sepsis Screening Result: No Definite Risk - Focused Exam Vital Signs: Vital Signs Temp Pulse Resp BP Pulse Ox 03/25/19 12:00 97.5 F 90 16 95 03/25/19 07:43 97.3 F 95 18 134/77 95 Date Exam was Performed: 03/25/19 Time Exam was Performed: 12:37 - Problem List & Annotations (1) CVA (cerebral vascular accident) SNOMED Code(s): 979291800 Code(s): I63.9 - CEREBRAL INFARCTION, UNSPECIFIED Status: Acute Current Visit: Yes Qualifiers: Laterality of affected vessel: left (2) AMS (altered mental status) SNOMED Code(s): 500704466 Code(s): R41.82 - ALTERED MENTAL STATUS, UNSPECIFIED Status: Acute Current Visit: Yes (3) Physical deconditioning SNOMED Code(s): 39728843889715 Code(s): R53.81 - OTHER MALAISE Status: Acute Current Visit: Yes (4) Weakness SNOMED Code(s): 84428380 Code(s): R53.1 - WEAKNESS Status: Acute Current Visit: No (5) Chronic kidney disease, stage III (moderate) SNOMED Code(s): 391360517 Code(s): N18.3 - CHRONIC KIDNEY DISEASE, STAGE 3 (MODERATE) Status: Chronic Priority: High Current Visit: No (6) Dupuytren's contracture of both hands SNOMED Code(s): 101464610 Code(s): M72.0 - PALMAR FASCIAL FIBROMATOSIS [DUPUYTREN] Status: Chronic Priority: High Current Visit: No (7) History of TIA (transient ischemic attack) SNOMED Code(s): 377359285 Code(s): Z86.73 - PRSNL HX OF TIA (TIA), AND CEREB INFRC W/O RESID DEFICITS Status: Chronic Current Visit: No (8) Hypertension SNOMED Code(s): 50026854 Code(s): I10 - ESSENTIAL (PRIMARY) HYPERTENSION Status: Chronic Priority : High Current Visit: No Qualifiers: Hypertension type: essential hypertension Qualified Code(s): I10 - Essential (primary) hypertension (9) Hypothyroidism SNOMED Code(s): 12972613 Code(s): E03.9 - HYPOTHYROIDISM, UNSPECIFIED Status: Chronic Current Visit: No (10) Hx of prostatic malignancy SNOMED Code(s): 567720703 Code(s): Z85.46 - PERSONAL HISTORY OF MALIGNANT NEOPLASM OF PROSTATE Status : Chronic Current Visit: Yes - Problem List Review Problem List Initiated/Reviewed/Updated: Yes - Plan Plan:: This 74 year old male admitted increasing AMS, noted to have new subacute CVA on head CT 1. CVA: Stable. 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 having intermittent confusion and behavior concerns. May need psychiatric evaluation and initiation of medications in a controlled environment. continue ASA and statin. 2. COPD: Stable, continue home inhaler. 3. Prostate CA: Hx of Lupron injections, unsure of last dose. Incontinent at baseline. 4. Hypothyroidism: Stable, continue Levothyroxine 88 mcg. VTE prophylaxis: Heparin Dispo: Pending placement.
[2019-03-25] MEDS: atorvaSTATin 40 MG Tab PO SCH (21:37)
[2019-03-25] MEDS: Melatonin 3 MG Tab PO PRN (21:52)
[2019-03-26] MEDS: Heparin Sodium 5,000 Units/ML Vial SUBCUT SCH ×2 (05:02→13:33)
[2019-03-26] MEDS: Levothyroxine 88 MCG Tab PO SCH (06:44)
[2019-03-26] MEDS: Tolterodine 2 MG Cap.ER PO SCH (09:03)
[2019-03-26] MEDS: Dutasteride 0.5 MG Cap PO SCH (09:03)
[2019-03-26] MEDS: Cyanocobalamin (Vitamin B12) 500 MCG Tab PO SCH (09:04)
[2019-03-26] MEDS: Aspirin 81 MG Tab.EC PO SCH (09:04)
[2019-03-26] MEDS: Docusate Sodium 100 MG Cap PO SCH (09:04)
[2019-03-26] MEDS: Umeclidinium Brm/Vilanterol Tr 1 PUFF INH SCH (09:55)
--- NOTE | 2019-03-26 15:40 | PCM.DCSUM1 ---
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 He was diagnosed with new acute CVA of frontal lobe. He previous had CVAs with this region as well. Acute delirium cleared on admission day one. Then behavioral outburst started with cursing and aggressive behaviors towards nursing staff. Attempts were made to transition him to SNF but with behavioral outburst these facilities did not feel comfortable taking Pat until he was stabilized on medications. [facility] unit as declined as he is in need of walker to ambulate and they felt they would not be able to care for this geriatric patient on their psychiatric units. [facility] contacted and recommended evaluation at inpatient psych unit prior to attempting [facility] admission. I contacted [facility], no bed available at that time. I contact [facility] and spoke with Dr Sloan, psychiatry who gave recommendations for weeks taper of Depakote starting at 250 mg BID. I explained to him we are unable to keep this individual in our facility as we have no psychiatric assistance to help taper these medications. It was further discussed and ultimately Dr Tejada, Hospitalist accepted this patient for transfer for behaviors nor exhibited from frontal lobe dementia from hx of multiple CVAs. He will be transported via [facility] this evening when EMS is available. I spoke with Sabino, son in low and POA who is in agreement and understanding of this transfer. Modesta was also notified and felt comfortable, at that time with transfer. EMS did request 24 hour hold to be placed for transfer as patient as this patient intermittently have behaviors concerns. Hold in place for transfer. Brief History: This 74 year old male with pmh of CKD, prostate CA, CVA, HTN, and syncope presented to the ED today via EMS due to altered mental status. Family, son in law and his girlfriend, at bedside helping with history. Sabino, son in law, reports they were notified this morning, that residents at [facility]'s apartment building found Pat outside very confused and without his walker. He reports they have noticed confusion the last 2 weeks, but significant decline in the last 3 days. Pat reports he is feeling well, feels legs are very weak and gets very tired from short distances of walking. He reports he is confused as well, but then goes in and out of being oriented or covering up for some confusion. He denies chest pain or SOB. No fevers or chills. No abdominal pain or urinary troubles. reports incontinence which is at baseline. reports constipation, 1 week since BM. Family reports they are the only ones in his life. Sabino, son in law, reports Pat is estranged from daughter for at least the last 2 years. In the ED, labwork obtained, WNL, CKD stable BUN 25 and Cr 1[address]6. Head CT obtained revealed old frontal infarct which is stable from previous, but also did note new subacute infarct as well, which a change from previous exam. CXR negative for acute changes. he will be admitted for CVA and altered mental status. PCP Dr Phoenix. Diagnosis: Stroke: No - Discharge Data Discharge Date: 03/26/19 Discharge Disposition: DC/Tfer to Acute Hospital 02 Condition: Stable - Referral to Home Health Primary Care Physician: Thomas Phoenix MD - Discharge Diagnosis/Problem(s) (1) CVA (cerebral vascular accident) SNOMED Code(s): 338021255 ICD Code: I63.9 - CEREBRAL INFARCTION, UNSPECIFIED Status: Acute Qualifiers: Laterality of affected vessel: left (2) AMS (altered mental status) SNOMED Code(s): 124266193 ICD Code: R41.82 - ALTERED MENTAL STATUS, UNSPECIFIED Status: Acute (3) Physical deconditioning SNOMED Code(s): 89367233067773 ICD Code: R53.81 - OTHER MALAISE Status: Acute (4) Weakness SNOMED Code(s): 88824111 ICD Code: R53.1 - WEAKNESS Status: Acute (5) Chronic kidney disease, stage III (moderate) SNOMED Code(s): 655243076 ICD Code: N18.3 - CHRONIC KIDNEY DISEASE, STAGE 3 (MODERATE) Status: Chronic Priority: High (6) Dupuytren's contracture of both hands SNOMED Code(s): 216378179 ICD Code: M72.0 - PALMAR FASCIAL FIBROMATOSIS [DUPUYTREN] Status: Chronic Priority: High (7) History of TIA (transient ischemic attack) SNOMED Code(s): 903245754 ICD Code: Z86.73 - PRSNL HX OF TIA (TIA), AND CEREB INFRC W/O RESID DEFICITS Status: Chronic (8) Hypertension SNOMED Code(s): 84120427 ICD Code: I10 - ESSENTIAL (PRIMARY) HYPERTENSION Status: Chronic Priority : High Qualifiers: Hypertension type: essential hypertension Qualified Code(s): I10 - Essential (primary) hypertension (9) Hypothyroidism SNOMED Code(s): 85856927 ICD Code: E03.9 - HYPOTHYROIDISM, UNSPECIFIED Status: Chronic (10) Hx of prostatic malignancy SNOMED Code(s): 628305305 ICD Code: Z85.46 - PERSONAL HISTORY OF MALIGNANT NEOPLASM OF PROSTATE Status: Chronic - Patient Summary/Data Consults: Consultations 03/17/19 12:43 Consult to Occupational Therapy [OT Evaluation and Treatment] [CONS] Routine PT Evaluation and Treatment [CONS] Routine - Patient Instructions Diet: Heart Healthy Diet Activity: As Tolerated Driving: Do Not Drive Showering/Bathing: May Shower Notify Provider of: Fever, Increased Pain, Swelling and Redness, Drainage, Nausea and/or Vomiting Other/Special Instructions: PT/OT/ST to evaluate and treat - Discharge Plan *PRESCRIPTION DRUG MONITORING PROGRAM REVIEWED*: Not Applicable *COPY OF PRESCRIPTION DRUG MONITORING REPORT IN PATIENT JENNIFER: Not Applicable Prescriptions/Med Rec: Acetaminophen [Tylenol] 650 mg PO Q4H PRN #30 tablet PRN Reason: Pain atorvaSTATin [Lipitor] 40 mg PO BEDTIME #30 tablet bisacodyL [Dulcolax] 10 mg RECTAL Q3D PRN #3 supp PRN Reason: Constipation Docusate Sodium [Colace] 100 mg PO BID #30 cap Home Medications: Home Meds Aspirin [[place] Aspirin EC] 81 mg PO DAILY 08/02/16 [History] Cyanocobalamin (Vitamin B-12) [B-12] 1,000 mcg PO DAILY 08/02/16 [History] Dutasteride [Avodart] 0.5 mg PO DAILY 08/02/16 [History] Tolterodine Tartrate [Tolterodine Tartrate ER] 4 mg PO DAILY 11/21/16 [History] Umeclidinium Brm/Vilanterol Tr [Anoro Ellipta 62.5-25 MCG] 1 puff INH DAILY [History] Famotidine 20 mg PO BID PRN 01/15/19 [History] Levothyroxine [Synthroid] 88 mcg PO ACBREAKFAST 03/17/19 [History] Acetaminophen [Tylenol] 650 mg PO Q4H PRN #30 tablet 03/20/19 [Rx] Docusate Sodium [Colace] 100 mg PO BID #30 cap 03/20/19 [Rx] atorvaSTATin [Lipitor] 40 mg PO BEDTIME #30 tablet 03/20/19 [Rx] bisacodyL [Dulcolax] 10 mg RECTAL Q3D PRN #3 supp 03/20/19 [Rx] Oxygen Therapy Mode: Room Air Patient Handouts: Confusion, Acetaminophen tablets or caplets, Atorvastatin tablets, Docusate capsules Referrals: Torrey Falcon MD [Physician] - 03/26/19 (follow on next clinton rounds) - Discharge Summary/Plan Comment DC Time >30 min.: No - Patient Data Vitals - Most Recent: Last Vital Signs Temp 99.5 F 03/26/19 19:05 Pulse 95 03/26/19 19:05 Resp 17 03/26/19 19:05 BP 137/60 03/26/19 19:05 Pulse Ox 96 03/26/19 19:05 Weight - Most Recent: 120 kg I&O - Last 24 hours: Intake & Output 03/26/19 03/26/19 03/27/19 14:59 22:59 06:59 Intake Total 760 Output Total 310 Balance 450 Med Orders - Current: Current Medications Discontinued Medications Acetaminophen (Tylenol) 650 mg PO Q4H PRN PRN Reason: Pain Aspirin (Halfprin) 81 mg PO DAILY [facility] Last Admin: 03/26/19 09:04 Dose: 81 mg Atorvastatin Calcium (Lipitor) 40 mg PO BEDTIME [facility] Last Admin: 03/25/19 21:37 Dose: 40 mg Bisacodyl (Dulcolax) 10 mg RECTAL DAILY PRN PRN Reason: Constipation Cyanocobalamin (Vitamin B12) 1,000 mcg PO DAILY [facility] Last Admin: 03/26/19 09:04 Dose: 1,000 mcg Divalproex Sodium (Divalproex Sodium) 250 mg PO BIDMEALS [facility] Last Admin: 03/26/19 16:30 Dose: 250 mg Docusate Sodium (Colace) 100 mg PO BID [facility] Last Admin: 03/26/19 09:04 Dose: 100 mg Dutasteride (Avodart) 0.5 mg PO DAILY [facility] Last Admin: 03/26/19 09:03 Dose: 0.5 mg Famotidine (Pepcid) 20 mg PO BID PRN PRN Reason: acid reflux Last Admin: 03/25/19 16:50 Dose: 20 mg Haloperidol (Haldol) 5 mg PO ONETIME ONE Stop: 03/18/19 18:16 Last Admin: 03/18/19 18:20 Dose: 5 mg Haloperidol Lactate (Haldol) 1 - 5 mg IM Q8H PRN PRN Reason: Agitation Heparin Sodium (Porcine) (Heparin Sodium) 5,000 units SUBCUT Q8H [facility] Last Admin: 03/26/19 13:33 Dose: Not Given Levothyroxine Sodium (Synthroid) 88 mcg PO ACBREAKFAST [facility] Last Admin: 03/26/19 06:44 Dose: 88 mcg Melatonin (Melatonin) 3 mg PO BEDTIME PRN PRN Reason: Insomnia Last Admin: 03/25/19 21:52 Dose: 3 mg Ondansetron HCl (Zofran) 4 mg IVPUSH Q4H PRN PRN Reason: Nausea Umeclidinium Brm/ (Vilanterol Tr 1 Puff) 0 each INH DAILY [facility] Last Admin: 03/26/19 09:55 Dose: 1 each Quetiapine Fumarate (Seroquel) 25 mg PO BEDTIME PRN PRN Reason: Agitation Last Admin: 03/25/19 21:52 Dose: 25 mg Sodium Chloride (Saline Flush) 10 ml FLUSH ASDIRECTED PRN PRN Reason: Keep Vein Open Sodium Chloride (Saline Flush) 2.5 ml FLUSH ASDIRECTED PRN PRN Reason: Keep Vein Open Tolterodine Tartrate (Detrol La 24 Hr) 4 mg PO DAILY [facility] Last Admin: 03/26/19 09:03 Dose: 4 mg Original Note: Discharge Summary - Hospital Course Brief History: This 74 year old male with pmh of CKD, prostate CA, CVA, HTN, and syncope presented to the ED today via EMS due to altered mental status. Family, son in law and his girlfriend, at bedside helping with history. Sabino, son in law, reports they were notified this morning, that residents at Modesta's apartment building found Pat outside very confused and without his walker. He reports they have noticed confusion the last 2 weeks, but significant decline in the last 3 days. Modesta reports he is feeling well, feels legs are very weak and gets very tired from short distances of walking. He reports he is confused as well, but then goes in and out of being oriented or covering up for some confusion. He denies chest pain or SOB. No fevers or chills. No abdominal pain or urinary troubles. reports incontinence which is at baseline. reports constipation, 1 week since BM. Family reports they are the only ones in his life. Sabino, son in law, reports Pat is estranged from daughter for at least the last 2 years. In the ED, labwork obtained, WNL, CKD stable BUN 25 and Cr 1.6. Head CT obtained revealed old frontal infarct which is stable from previous, but also did note new subacute infarct as well, which a change from previous exam. CXR negative for acute changes. he will be admitted for CVA and altered mental status. PCP Dr Phoenix. Diagnosis: Stroke: No - Discharge Data Discharge Date: 03/26/19 Discharge Disposition: DC/Tfer to Acute Hospital 02 Condition: Stable - Referral to Home Health Primary Care Physician: Thomas Phoenix MD - Discharge Diagnosis/Problem(s) (1) CVA (cerebral vascular accident) SNOMED Code(s): 555962521 ICD Code: I63.9 - CEREBRAL INFARCTION, UNSPECIFIED Status: Acute Current Visit: Yes Qualifiers: Laterality of affected vessel: left (2) AMS (altered mental status) SNOMED Code(s): 400070428 ICD Code: R41.82 - ALTERED MENTAL STATUS, UNSPECIFIED Status: Acute Current Visit: Yes (3) Physical deconditioning SNOMED Code(s): 76635466975527 ICD Code: R53.81 - OTHER MALAISE Status: Acute Current Visit: Yes (4) Weakness SNOMED Code(s): 53469502 ICD Code: R53.1 - WEAKNESS Status: Acute Current Visit: No (5) Chronic kidney disease, stage III (moderate) SNOMED Code(s): 509959292 ICD Code: N18.3 - CHRONIC KIDNEY DISEASE, STAGE 3 (MODERATE) Status: Chronic Priority: High Current Visit: No (6) Dupuytren's contracture of both hands SNOMED Code(s): 879944272 ICD Code: M72.0 - PALMAR FASCIAL FIBROMATOSIS [DUPUYTREN] Status: Chronic Priority: High Current Visit: No (7) History of TIA (transient ischemic attack) SNOMED Code(s): 461026856 ICD Code: Z86.73 - PRSNL HX OF TIA (TIA), AND CEREB INFRC W/O RESID DEFICITS Status: Chronic Current Visit: No (8) Hypertension SNOMED Code(s): 52693131 ICD Code: I10 - ESSENTIAL (PRIMARY) HYPERTENSION Status: Chronic Priority : High Current Visit: No Qualifiers: Hypertension type: essential hypertension Qualified Code(s): I10 - Essential (primary) hypertension (9) Hypothyroidism SNOMED Code(s): 19844891 ICD Code: E03.9 - HYPOTHYROIDISM, UNSPECIFIED Status: Chronic Current Visit: No (10) Hx of prostatic malignancy SNOMED Code(s): 198200362 ICD Code: Z85.46 - PERSONAL HISTORY OF MALIGNANT NEOPLASM OF PROSTATE Status: Chronic Current Visit: Yes - Patient Summary/Data Consults: Consultations 03/17/19 12:43 Consult to Occupational Therapy [OT Evaluation and Treatment] [CONS] Routine PT Evaluation and Treatment [CONS] Routine - Patient Instructions Diet: Heart Healthy Diet Activity: As Tolerated Driving: Do Not Drive Showering/Bathing: May Shower Notify Provider of: Fever, Increased Pain, Swelling and Redness, Drainage, Nausea and/or Vomiting Other/Special Instructions: PT/OT/ST to evaluate and treat - Discharge Plan *PRESCRIPTION DRUG MONITORING PROGRAM REVIEWED*: Not Applicable *COPY OF PRESCRIPTION DRUG MONITORING REPORT IN PATIENT JENNIFER: Not Applicable Prescriptions/Med Rec: Acetaminophen [Tylenol] 650 mg PO Q4H PRN #30 tablet PRN Reason: Pain atorvaSTATin [Lipitor] 40 mg PO BEDTIME #30 tablet bisacodyL [Dulcolax] 10 mg RECTAL Q3D PRN #3 supp PRN Reason: Constipation Docusate Sodium [Colace] 100 mg PO BID #30 cap Home Medications: Home Meds Aspirin [[place] Aspirin EC] 81 mg PO DAILY 08/02/16 [History] Cyanocobalamin (Vitamin B-12) [B-12] 1,000 mcg PO DAILY 08/02/16 [History] Dutasteride [Avodart] 0.5 mg PO DAILY 08/02/16 [History] Tolterodine Tartrate [Tolterodine Tartrate ER] 4 mg PO DAILY 11/21/16 [History] Umeclidinium Brm/Vilanterol Tr [Anoro Ellipta 62.5-25 MCG] 1 puff INH DAILY [History] Famotidine 20 mg PO BID PRN 01/15/19 [History] Levothyroxine [Synthroid] 88 mcg PO ACBREAKFAST 03/17/19 [History] Acetaminophen [Tylenol] 650 mg PO Q4H PRN #30 tablet 03/20/19 [Rx] Docusate Sodium [Colace] 100 mg PO BID #30 cap 03/20/19 [Rx] atorvaSTATin [Lipitor] 40 mg PO BEDTIME #30 tablet 03/20/19 [Rx] bisacodyL [Dulcolax] 10 mg RECTAL Q3D PRN #3 supp 03/20/19 [Rx] Oxygen Therapy Mode: Room Air Patient Handouts: Confusion, Acetaminophen tablets or caplets, Atorvastatin tablets, Docusate capsules Referrals: Torrey Falcon MD [Physician] - 03/26/19 (follow on next clinton rounds) - Discharge Summary/Plan Comment DC Time >30 min.: No - General Info Date of Service: 03/26/19 Admission Dx/Problem (Free Text: Admission Diagnosis/Problem Admission Diagnosis/Problem CVA, Cerebrovascular accident, AMS Subjective Update: Patient very rude this morning swearing at nurses and social workers. Denies any pain. No chest pain or SOB. No other concerns. Family at bedside intermittently understanding of plan for placement if possible today. Functional Status: Reports: Pain Controlled, Tolerating Diet, Ambulating (with assist of one and walker) - Review of Systems Pulmonary: Reports: No Symptoms. Denies: Shortness of Breath Cardiovascular: Reports: No Symptoms. Denies: Chest Pain Gastrointestinal: Reports: No Symptoms. Denies: Abdominal Pain, Nausea, Vomiting Genitourinary: Reports: No Symptoms Musculoskeletal: Reports: No Symptoms Skin: Reports: No Symptoms Neurological: Reports: No Symptoms Psychiatric: Reports: No Symptoms - Patient Data Vitals - Most Recent: Last Vital Signs Temp 98.6 F 03/26/19 12:00 Pulse 91 03/26/19 12:00 Resp 20 03/26/19 12:00 BP 139/80 03/26/19 12:00 Pulse Ox 99 03/26/19 08:55 Weight - Most Recent: 120 kg I&O - Last 24 hours: Intake & Output 03/26/19 03/26/19 03/26/19 06:59 14:59 22:59 Intake Total 800 Output Total 500 Balance 300 Med Orders - Current: Current Medications Acetaminophen (Tylenol) 650 mg PO Q4H PRN PRN Reason: Pain Aspirin (Halfprin) 81 mg PO DAILY [facility] Last Admin: 03/26/19 09:04 Dose: 81 mg Atorvastatin Calcium (Lipitor) 40 mg PO BEDTIME [facility] Last Admin: 03/25/19 21:37 Dose: 40 mg Bisacodyl (Dulcolax) 10 mg RECTAL DAILY PRN PRN Reason: Constipation Cyanocobalamin (Vitamin B12) 1,000 mcg PO DAILY [facility] Last Admin: 03/26/19 09:04 Dose: 1,000 mcg Divalproex Sodium (Divalproex Sodium) 250 mg PO BIDMEALS [facility] Docusate Sodium (Colace) 100 mg PO BID [facility] Last Admin: 03/26/19 09:04 Dose: 100 mg Dutasteride (Avodart) 0.5 mg PO DAILY [facility] Last Admin: 03/26/19 09:03 Dose: 0.5 mg Famotidine (Pepcid) 20 mg PO BID PRN PRN Reason: acid reflux Last Admin: 03/25/19 16:50 Dose: 20 mg Haloperidol Lactate (Haldol) 1 - 5 mg IM Q8H PRN PRN Reason: Agitation Heparin Sodium (Porcine) (Heparin Sodium) 5,000 units SUBCUT Q8H [facility] Last Admin: 03/26/19 13:33 Dose: Not Given Levothyroxine Sodium (Synthroid) 88 mcg PO ACBREAKFAST [facility] Last Admin: 03/26/19 06:44 Dose: 88 mcg Melatonin (Melatonin) 3 mg PO BEDTIME PRN PRN Reason: Insomnia Last Admin: 03/25/19 21:52 Dose: 3 mg Ondansetron HCl (Zofran) 4 mg IVPUSH Q4H PRN PRN Reason: Nausea Umeclidinium Brm/ (Vilanterol Tr 1 Puff) 0 each INH DAILY [facility] Last Admin: 03/26/19 09:55 Dose: 1 each Quetiapine Fumarate (Seroquel) 25 mg PO BEDTIME PRN PRN Reason: Agitation Last Admin: 03/25/19 21:52 Dose: 25 mg Sodium Chloride (Saline Flush) 10 ml FLUSH ASDIRECTED PRN PRN Reason: Keep Vein Open Sodium Chloride (Saline Flush) 2.5 ml FLUSH ASDIRECTED PRN PRN Reason: Keep Vein Open Tolterodine Tartrate (Detrol La 24 Hr) 4 mg PO DAILY [facility] Last Admin: 03/26/19 09:03 Dose: 4 mg Discontinued Medications Haloperidol (Haldol) 5 mg PO ONETIME ONE Stop: 03/18/19 18:16 Last Admin: 03/18/19 18:20 Dose: 5 mg - Exam General: Reports: Alert, Oriented. Denies: Cooperative (allows assessment and discussion with [employer] and MD at bedside) Lungs: Reports: Clear to Auscultation, Normal Respiratory Effort Cardiovascular: Reports: Regular Rate, Regular Rhythm GI/Abdominal Exam: Normal Bowel Sounds, Soft, Non-Tender Extremities: Normal Inspection, Normal Range of Motion, Non-Tender, Pedal Edema (scant bilaterally) Wound/Incisions: Reports: Healing Well Psy/Mental Status: Reports: Alert, Agitated (intermittent with cursing and verbal outbursts)
[2019-03-26] MEDS ORDERED: Divalproex Sodium Delayed-Release 250 MG Tab.CR PO SCH (17:00)
[2019-03-26 21:05] VITALS: BP 137/60; PULSE 95
== END 2019-03-26 19:45 | DRG 65 ==
LOC: MW.ED 09:59 → MW.MS 12:26 → OBSVTOIN 12:38
PROVIDERS: ADMIT Internal Medicine; ATTEND Internal Medicine
DX: R41.82 Altered mental status, unspecified (principal); I63.9 Cerebral infarction, unspecified; F03.91 Unspecified dementia, unspecified severity, with behavioral disturbance; F05 Delirium due to known physiological condition; M72.0 Palmar fascial fibromatosis [Dupuytren]; R53.81 Other malaise; N18.3 Chronic kidney disease, stage 3 (moderate); R32 Unspecified urinary incontinence; E03.9 Hypothyroidism, unspecified; I12.9 Hypertensive chronic kidney disease with stage 1 through stage 4 chronic kidney disease, or unspecified chronic kidney disease; J44.9 Chronic obstructive pulmonary disease, unspecified; Z92.3 Personal history of irradiation; Z86.73 Personal history of transient ischemic attack (TIA), and cerebral infarction without residual deficits; Z96.659 Presence of unspecified artificial knee joint; K21.9 Gastro-esophageal reflux disease without esophagitis; E66.9 Obesity, unspecified; N40.0 Benign prostatic hyperplasia without lower urinary tract symptoms; M19.90 Unspecified osteoarthritis, unspecified site; Z79.82 Long term (current) use of aspirin; Z85.46 Personal history of malignant neoplasm of prostate; Z79.890 Hormone replacement therapy; Z79.899 Other long term (current) drug therapy; Z68.36 Body mass index [BMI] 36.0-36.9, adult; Z87.891 Personal history of nicotine dependence
CPT/HCPCS: 36415; 70450; 70450-26; 71045; 71045-26; 80048; 80053; 80305-QW; 81001; 82607; 83735; 84100; 84153; 84403; 84439; 84443; 84484; 85025; 85610; 94640; 97161-GP; 99284; 99285-25; A9270-GY; J1644